=== PATIENT | male | born 1955 | race Caucasian/White ===

== ENCOUNTER 2021-06-14 06:04 | Outpatient (REF) | payer OTHER, SELFPAY ==
--- NOTE | ~2021-06-14 | XR_ITS ---
EXAMINATION: XR SHOULDER, LEFT CLINICAL INFORMATION: Pain. COMPARISON: None TECHNIQUE: AP external rotation, Grashey, scapular Y, and axillary views of the left shoulder. FINDINGS: There is mild reduction in the left AC joint and left glenohumeral joint space. No visible acute fracture or dislocation seen. The soft tissues are normal. XR/XR shoulder LT min 2V IMPRESSION: Mild degenerative changes left shoulder joint. There is no visible acute fracture or dislocation.
[2021-06-14 06:19] LABS: MANUAL DIFF FLAG NO
[2021-06-14 06:53] LABS: Basophils Absolute Auto 0.1 X10*3/uL (0.0-0.2); Eosinophils Absolute Auto 0.2 X10*3/uL (0.0-0.4); Eosinophils Percent Auto 3.8 % (0-4); Hematocrit 50.4 % (42.0-52.0); Hemoglobin 16.8 g/dl (14.0-18.0); Imm Gran Abs Auto 0.04 X10*3/uL (0.00-0.03); Imm Gran Pct Auto 0.6 % (0.0-0.4); Lymphocytes Absolute Auto 1.7 X10*3/uL (1.2-4.9); Lymphocytes Percent Auto 26.7 % (20-40); Mean Corpuscular HGB Conc 33.3 g/dl (31.0-36.0); Mean Corpuscular Hemoglobin 30.3 pg (27.0-33.0); Mean Corpuscular Volume 90.8 fL (80.0-98.0); Mean Platelet Volume 10.1 fL (9.4-12.4); Monocytes Absolute Auto 0.8 X10*3/uL (0.1-1.2); Monocytes Percent Auto 13.1 % (2-11); Neutrophils Absolute Auto 3.4 x10*3/uL (2.0-8.3); Neutrophils Percent Auto 54.8 % (45-73); Platelet Count 202 X10*3/uL (160-400); Red Blood Count 5.55 X10*6/uL (4.60-5.80); White Blood Count 6.3 X10*3/uL (4.8-10.8)
[2021-06-14 07:11] LABS: Alanine Aminotransferase 20 U/L (0-40); Albumin Level 3.8 g/dL (3.5-5.0); Alkaline Phosphatase 44 U/L (39-117); Anion Gap 13 (12-20); Aspartate Amino Transferase 15 U/L (5-37); Bilirubin Total 1.8 mg/dL (0.0-1.0); Blood Urea Nitrogen 14 mg/dL (9-16); Calcium 9.4 mg/dL (8.4-10.2); Carbon Dioxide 29 mmol/L (22-29); Chloride 103 mmol/L (96-108); Cholesterol 229 mg/dL; Estimated Glomerular Filt Rate > 60; Glucose Random 111 mg/dL (60-115); HDL Cholesterol 64 mg/dL; LDL Cholesterol Calculated 143 mg/dl; Potassium 4.6 mmol/L (3.3-5.1); Sodium 140 mmol/L (135-145); Total Protein 6.5 g/dL (6.5-8.0); Triglycerides 113 mg/dL
[2021-06-14 07:24] LABS: Estimated Average Glucose 103 mg/dL; Free T4 (Free Thyroxine) 0.83 ng/dL (0.71-1.85); Hemoglobin A1c % 5.2 %; Prostate Specific Antigen Scr 1.77 ng/mL (<0.05-4.0); Thyroid Stimulating Hormone 3.32 uIU/mL (0.32-4.0)
[2021-06-14 08:52] LABS: Folate 8.9 ng/mL (> or = 4.0); Vitamin B12 372 pg/mL (200-900)
== END 2021-06-14 06:05 | disposition home or self-care (01) ==
LOC: HO.LAB 06:04
PROVIDERS: PCP Internal Medicine; Visit Provider Internal Medicine
DX: Z12.5 Encounter for screening for malignant neoplasm of prostate (principal); I10 Essential (primary) hypertension; R73.02 Impaired glucose tolerance (oral); N40.0 Benign prostatic hyperplasia without lower urinary tract symptoms; E78.00 Pure hypercholesterolemia, unspecified; M25.512 Pain in left shoulder
CPT/HCPCS: 36415; 73030; 80053; 80061; 82607; 82746; 83036; 84153; 84439; 84443; 85025

== ENCOUNTER 2021-08-13 07:57 | Outpatient (REF) | payer OTHER, SELFPAY ==
--- NOTE | ~2021-08-13 | XR_ITS ---
EXAMINATION: 1. RADIOGRAPHS BILATERAL STANDING AP KNEES 2. RADIOGRAPHS RIGHT KNEE 3. RADIOGRAPHS LEFT KNEE CLINICAL INFORMATION: Bilateral knee pain COMPARISON: Bilateral knee x-rays January 12, 2016 and September 09, 2014 TECHNIQUE: Frontal standing AP views of both knees were obtained. 2 additional views of each knee were also obtained. FINDINGS: Patient is status post bilateral cruciate ligament repair. Hardware in the bilateral knees is grossly unremarkable. There is mild narrowing of the right medial joint space height with moderate narrowing of the left medial joint space height. Small tricompartmental marginal osteophytes are present within both knees. I do not appreciate a joint effusion within either knee. XR/XR knee LT 2V IMPRESSION: -Unremarkable postsurgical changes of both knees. -Mild to moderate degenerative changes of both knees, predominantly involving the medial compartment of both knees, slightly more prominent within the left knee. Degenerative changes are only minimally progressed from January 20, 2016 imaging.
--- NOTE | ~2021-08-13 | XR_ITS ---
EXAMINATION: 1. RADIOGRAPHS BILATERAL STANDING AP KNEES 2. RADIOGRAPHS RIGHT KNEE 3. RADIOGRAPHS LEFT KNEE CLINICAL INFORMATION: Bilateral knee pain COMPARISON: Bilateral knee x-rays January 12, 2016 and September 09, 2014 TECHNIQUE: Frontal standing AP views of both knees were obtained. 2 additional views of each knee were also obtained. FINDINGS: Patient is status post bilateral cruciate ligament repair. Hardware in the bilateral knees is grossly unremarkable. There is mild narrowing of the right medial joint space height with moderate narrowing of the left medial joint space height. Small tricompartmental marginal osteophytes are present within both knees. I do not appreciate a joint effusion within either knee. XR/XR knee standing BI IMPRESSION: -Unremarkable postsurgical changes of both knees. -Mild to moderate degenerative changes of both knees, predominantly involving the medial compartment of both knees, slightly more prominent within the left knee. Degenerative changes are only minimally progressed from January 20, 2016 imaging.
--- NOTE | ~2021-08-13 | XR_ITS ---
EXAMINATION: 1. RADIOGRAPHS BILATERAL STANDING AP KNEES 2. RADIOGRAPHS RIGHT KNEE 3. RADIOGRAPHS LEFT KNEE CLINICAL INFORMATION: Bilateral knee pain COMPARISON: Bilateral knee x-rays January 12, 2016 and September 09, 2014 TECHNIQUE: Frontal standing AP views of both knees were obtained. 2 additional views of each knee were also obtained. FINDINGS: Patient is status post bilateral cruciate ligament repair. Hardware in the bilateral knees is grossly unremarkable. There is mild narrowing of the right medial joint space height with moderate narrowing of the left medial joint space height. Small tricompartmental marginal osteophytes are present within both knees. I do not appreciate a joint effusion within either knee. XR/XR knee RT 2V IMPRESSION: -Unremarkable postsurgical changes of both knees. -Mild to moderate degenerative changes of both knees, predominantly involving the medial compartment of both knees, slightly more prominent within the left knee. Degenerative changes are only minimally progressed from January 20, 2016 imaging.
== END 2021-08-13 07:58 | disposition home or self-care (01) ==
LOC: HO.HOSX 07:57
PROVIDERS: Visit Provider Orthopaedic Surgery
DX: M17.0 Bilateral primary osteoarthritis of knee (principal)
CPT/HCPCS: 20610; 73560; 73565; J1100

== ENCOUNTER 2021-11-05 11:50 | Outpatient (REF) | payer OTHER, SELFPAY ==
--- NOTE | ~2021-11-05 | XR_ITS ---
EXAMINATION: XR HAND, LEFT CLINICAL INFORMATION: Pain. COMPARISON: Radiographs dated 08/07/2007. TECHNIQUE: PA, lateral, and oblique views of the left hand. FINDINGS: Bony alignment and mineralization are normal. There is a neutral ulnar variance. The proximal and distal carpal rows are intact. There are small subchondral cysts noted of the third and fourth distal interphalangeal joints and of the second and third proximal interphalangeal joints. There is mild peripheral osteophyte formation of the interphalangeal joint of the thumb, the second through fourth proximal interphalangeal joints and of the third distal interphalangeal joint. No fracture or dislocation is seen. There is no soft tissue gas or foreign body. XR/XR hand LT min 3V IMPRESSION: There are multi-focal osteoarthritic changes of the left hand and wrist, as detailed. No fracture or dislocation is seen.
== END 2021-11-05 11:51 | disposition home or self-care (01) ==
LOC: HO.HOSX 11:50
PROVIDERS: Visit Provider Orthopaedic Surgery
DX: M79.645 Pain in left finger(s) (principal); M25.561 Pain in right knee; M25.562 Pain in left knee; M17.0 Bilateral primary osteoarthritis of knee
CPT/HCPCS: 20600; 73130; J1100

== ENCOUNTER → 2022-03-31 14:11 | Outpatient (BNVA) | payer OTHER, SELFPAY | PROVIDERS: Visit Provider Orthopaedic Surgery | DX: M17.0 Bilateral primary osteoarthritis of knee (principal) | CPT/HCPCS: 20610; J1100 ==

== ENCOUNTER 2022-06-02 07:44 | Outpatient (REF) | payer OTHER, SELFPAY ==
[2022-06-02 07:52] LABS: MANUAL DIFF FLAG NO
[2022-06-02 08:05] LABS: Basophils Absolute Auto 0.1 X10*3/uL (0.0-0.2); Basophils Percent Auto 0.9 % (0-2); Eosinophils Absolute Auto 0.5 X10*3/uL (0.0-0.4); Eosinophils Percent Auto 8.2 % (0-4); Hematocrit 49.5 % (42.0-52.0); Hemoglobin 17.2 g/dl (14.0-18.0); Imm Gran Abs Auto 0.02 X10*3/uL (0.00-0.03); Imm Gran Pct Auto 0.3 % (0.0-0.4); Lymphocytes Absolute Auto 1.6 X10*3/uL (1.2-4.9); Lymphocytes Percent Auto 25.2 % (20-40); Mean Corpuscular HGB Conc 34.7 g/dl (31.0-36.0); Mean Corpuscular Hemoglobin 30.6 pg (27.0-33.0); Mean Corpuscular Volume 87.9 fL (80.0-98.0); Mean Platelet Volume 9.8 fL (9.4-12.4); Monocytes Absolute Auto 0.8 X10*3/uL (0.1-1.2); Monocytes Percent Auto 12.9 % (2-11); Neutrophils Absolute Auto 3.3 x10*3/uL (2.0-8.3); Neutrophils Percent Auto 52.5 % (45-73); Platelet Count 218 X10*3/uL (160-400); Red Blood Count 5.63 X10*6/uL (4.60-5.80); Red Cell Distribution Width 11.9 % (11.0-16.0); White Blood Count 6.4 X10*3/uL (4.8-10.8)
[2022-06-02 09:22] LABS: Estimated Average Glucose 103 mg/dL; Hemoglobin A1c % 5.2 %
[2022-06-02 09:47] LABS: Alanine Aminotransferase 20 U/L (0-40); Albumin Level 3.9 g/dL (3.5-5.0); Alkaline Phosphatase 42 U/L (39-117); Anion Gap 12 (12-20); Aspartate Amino Transferase 16 U/L (5-37); Bilirubin Total 1.8 mg/dL (0.0-1.0); Blood Urea Nitrogen 19 mg/dL (9-16); Calcium 9.1 mg/dL (8.4-10.2); Carbon Dioxide 28 mmol/L (22-29); Chloride 105 mmol/L (96-108); Cholesterol 248 mg/dL; Estimated Glomerular Filt Rate > 60; Glucose Random 107 mg/dL (60-115); HDL Cholesterol 67 mg/dL; LDL Cholesterol Calculated 158 mg/dl; Potassium 4.4 mmol/L (3.3-5.1); Sodium 141 mmol/L (135-145); Total Protein 6.3 g/dL (6.5-8.0); Triglycerides 116 mg/dL
[2022-06-02 10:01] LABS: Free T4 (Free Thyroxine) 0.88 ng/dL (0.71-1.85); Prostate Specific Antigen Scr 1.39 ng/mL (<0.05-4.0); Thyroid Stimulating Hormone 2.89 uIU/mL (0.32-4.0); Vitamin B12 337 pg/mL (200-900)
== END 2022-06-02 07:45 | disposition home or self-care (01) ==
LOC: HO.LAB 07:44
PROVIDERS: PCP Internal Medicine; Visit Provider Internal Medicine
DX: E78.00 Pure hypercholesterolemia, unspecified (principal); N40.0 Benign prostatic hyperplasia without lower urinary tract symptoms; R73.02 Impaired glucose tolerance (oral); Z12.5 Encounter for screening for malignant neoplasm of prostate
CPT/HCPCS: 36415; 80053; 80061; 82607; 82746; 83036; 84153; 84439; 84443; 85025

== ENCOUNTER 2022-07-25 12:44 | Outpatient (REF) | payer OTHER, SELFPAY ==
[2022-07-25 14:50] LABS: Anion Gap 12 (12-20); Blood Urea Nitrogen 17 mg/dL (9-16); Calcium 9.2 mg/dL (8.4-10.2); Carbon Dioxide 28 mmol/L (22-29); Chloride 104 mmol/L (96-108); Estimated Glomerular Filt Rate > 60; Glucose Random 104 mg/dL (60-115); Potassium 4.3 mmol/L (3.3-5.1); Sodium 140 mmol/L (135-145)
== END 2022-07-25 12:45 | disposition home or self-care (01) ==
LOC: HO.LAB 12:44
PROVIDERS: PCP Internal Medicine; Referring Provider Nurse Practitioner Family; Visit Provider Surgery
DX: R10.31 Right lower quadrant pain (principal); K40.91 Unilateral inguinal hernia, without obstruction or gangrene, recurrent; I10 Essential (primary) hypertension; E55.9 Vitamin D deficiency, unspecified; N40.0 Benign prostatic hyperplasia without lower urinary tract symptoms; E78.00 Pure hypercholesterolemia, unspecified; S00.81XA Abrasion of other part of head, initial encounter
CPT/HCPCS: 36415; 80048

== ENCOUNTER 2022-08-16 08:16 | Outpatient (REF) | payer OTHER, SELFPAY ==
--- NOTE | ~2022-08-16 | CT_ITS ---
EXAMINATION: CT PELVIS WITH CONTRAST CLINICAL INFORMATION: History of bilateral inguinal hernia repair right groin pain and recurrence on the left. COMPARISON: Previous CT of the abdomen and pelvis from 2019 TECHNIQUE: Helical scanning was performed with submillimeter collimation through the pelvis with the use of oral contrast and during bolus intravenous injection of 84 mL of Omnipaque 350 intravenous contrast. Sagittal and coronal multiplanar 2-D reconstructions were obtained. Exam was done with the patient performing Valsalva maneuver This CT examination was performed using dose optimization techniques as appropriate, variously including the following: *Automated exposure control *Adjustment of mA and/or kV according to patient size (this includes techniques or standardized protocols for targeted exams where dose is matched to indication/reason for exam; i.e. extremities or head) *Use of iterative reconstruction technique DLP: 484 mGy-cm FINDINGS: There are postsurgical changes following bilateral inguinal hernia repair. There is a recurrent left inguinal hernia containing fat. This measures 2.5 x 8.3 x 6 cm in AP transverse and longitudinal dimension. There are postsurgical changes in the right inguinal region. There is a small amount of fluid in the right inguinal region superficial and just lateral to the mesh measuring 1 cm. There is evidence of previous umbilical hernia repair with mesh. There is diverticulosis of the colon. Visualized bowel is otherwise unremarkable. The appendix is normal. The prostate gland is slightly enlarged and protrudes into the base of the bladder. No ascites or adenopathy. Normal vascular structures. Degenerative changes of the spine. CT/CT pelvis w IV con IMPRESSION: Recurrent left inguinal hernia containing fat. Postsurgical changes in the right inguinal region. There is a small amount of fluid adjacent to the superficial lateral mesh on the right. Diverticulosis. Enlarged prostate gland that protrudes into the base of the bladder.
[2022-08-16] MEDS: iohexoL 350 MG/ML 100 ML INFUS..BTL IV (09:38)
== END 2022-08-16 08:17 | disposition home or self-care (01) ==
LOC: HO.CT 08:16
PROVIDERS: PCP Internal Medicine; Visit Provider Surgery
DX: R10.31 Right lower quadrant pain (principal); K40.91 Unilateral inguinal hernia, without obstruction or gangrene, recurrent
CPT/HCPCS: 72193; Q9967

== ENCOUNTER → 2022-08-23 13:55 | Outpatient (BNVA) | payer OTHER, SELFPAY | PROVIDERS: PCP Internal Medicine; Visit Provider Surgery | DX: Z13.89 Encounter for screening for other disorder (principal) ==

== ENCOUNTER 2022-09-15 05:57 | Day surgery (SDC) | payer OTHER, SELFPAY ==
--- NOTE | 2022-09-14 09:09 | HO.ANESPROP2 ---
HPI - Anesthesia Eval Consult details Narrative: 67yo M for Left Laparoscopic Inguinal Hernia and Poss Right inguinal hernia both w/mesh PMFSH Active Problems Active Problems: All Active Problems (Updated 08/23/22 @ 15:39 by Jude Barraza MD) Inguinodynia (Acute) Recurrent left inguinal hernia (Acute) Facial abrasion (Acute) Right groin pain (Acute) Recurrent inguinal hernia (Acute) Right inguinal hernia (Acute) Left inguinal hernia (Acute) CMC arthritis (Acute) Bilateral primary osteoarthritis of knee (Acute) Elbow pain, left (Acute) Shoulder pain, left (Acute) Annual physical exam (Acute) Impaired glucose tolerance (Acute) Hypertension (Acute) Vitamin D deficiency (Acute) BPH (benign prostatic hyperplasia) (Acute) Hypercholesterolemia (Acute) Past Medical History Medical History BPH (benign prostatic hyperplasia) 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 History of fall Hypercholesterolemia Hypertension Impaired glucose tolerance Plantar fasciitis Vitamin D deficiency Surgical History Surgical History H/O umbilical hernia repair History of arthroscopic knee surgery History of inguinal hernia repair, bilateral History of strabismus surgery Social History Social History Housing: House Alcohol intake: current Patient Tobacco Use Status: Former Tobacco user Years Smoked: [id number] 4-5 years e-Cigarette/Vaping Use: Never Used Second Hand Smoke Exposure: No Current occupational status: retired Cognitive needs: No Hearing needs: No Vision needs: Yes Meds Allergies Allergy/AdvReac Type Severity Reaction Status Date / Time oxycodone [From PERCOCET] Allergy Unknown ITCHY Verified 09/15/22 06:26 THROAT, FEELS BAD Home Medications Medication Instructions Recorded Confirmed Last Taken Type instaflex PO 08/13/21 08/23/22 Unknown History Exam Exam Date and Time: September 14, 2022 09 Pertinent Lab Results Pertinent Lab Results: Laboratory Tests 06/02/22 07/25/22 07:52 13:38 WBC 6.4 Hgb 17.2 Hct 49.5 Plt Count 218 Sodium 140 Potassium 4.3 Chloride 104 Carbon Dioxide 28 BUN 17 H Creatinine 0.99 Assessment and Plan Assessment Anesthesia Assessment: Chart Reviewed
[2022-09-15] VITALS (7 sets, daily range): BP systolic 130–149; BP diastolic 73–92; PULSE 69–80; RESP 16–18; TEMP 36.2–36.4; O2SAT 96–98; BMI 25.4
[2022-09-15] MEDS: Lactated Ringers 1,000 ML 100 ML IVCONT (06:18)
--- NOTE | 2022-09-15 06:39 | MHC.SHP ---
Pre-Procedural Eval Section A Date of Service: 09/15/22 The patient is an INPATIENT: No The History & Physical has been completed within 30 days and I have reviewed it.: Yes Section B Chief Complaint: Unilateral inguinal hernia, Lower abdominal pain Allergies: Allergies Allergy/AdvReac Type Severity Reaction Status Date / Time oxycodone [From PERCOCET] Allergy Unknown ITCHY Verified 09/15/22 06:26 THROAT, FEELS BAD Plan I have reviewed the history and physical and performed a pertinent physical examination on my patient. No changes have occurred unless specified. Time Spent With Patient Time: Total time managing care of this patient today ____ minutes.
--- NOTE | 2022-09-15 06:44 | W.PM.OPN ---
Operative Note Operative Note Date of Service: 09/15/22 Narrative: The patient was identified in the preoperative holding area and the operative site and planned to repair, laparoscopically, his recurrent left inguinal hernia was reviewed. The possible need to repair an occult right inguinal hernia was present and discussed. Patient was brought into the operating suite and intubated without incident. During inventory of needed equipment, there was no left-sided ProGrip mesh available, so the patient was extubated and his Rebeca, notified by telephone [phone]. Patient will need to be rescheduled after the mesh is obtained..
--- NOTE | 2022-09-15 07:42 | PC.NURSE ---
verified by author that doctor marked the patient according to surgical consent and schedule.
== END 2022-09-15 09:49 | disposition home or self-care (01) ==
LOC: HO.SSS 05:57
PROVIDERS: PCP Internal Medicine; Visit Provider Surgery
DX: K40.91 Unilateral inguinal hernia, without obstruction or gangrene, recurrent (principal); Z53.8 Procedure and treatment not carried out for other reasons; I10 Essential (primary) hypertension; E78.00 Pure hypercholesterolemia, unspecified; Z79.899 Other long term (current) drug therapy; Z88.8 Allergy status to other drugs, medicaments and biological substances; Z87.891 Personal history of nicotine dependence
CPT/HCPCS: 49651; J0690; J2250; J2795

== ENCOUNTER 2022-09-22 10:27 | Day surgery (SDC) | payer OTHER, SELFPAY ==
--- NOTE | 2022-09-21 13:01 | P.CONAN_ITS ---
Documented by User: Radha Russo NP 09/21/22 13:03 HPI - Anesthesia Eval Consult details Narrative: 67yo M for Left Laparoscopic Inguinal Hernia and Poss Right inguinal hernia both w/mesh Previously cx'd 09/15/22 after intubation d/t equipment issue. GA-ETT 7.5 PMFSH Active Problems Active Problems: All Active Problems (Updated 08/23/22 @ 15:39 by Jude Barraza MD) Inguinodynia (Acute) Recurrent left inguinal hernia (Acute) Facial abrasion (Acute) Right groin pain (Acute) Recurrent inguinal hernia (Acute) Right inguinal hernia (Acute) Left inguinal hernia (Acute) CMC arthritis (Acute) Bilateral primary osteoarthritis of knee (Acute) Elbow pain, left (Acute) Shoulder pain, left (Acute) Annual physical exam (Acute) Impaired glucose tolerance (Acute) Hypertension (Acute) Vitamin D deficiency (Acute) BPH (benign prostatic hyperplasia) (Acute) Hypercholesterolemia (Acute) Past Medical History Medical History BPH (benign prostatic hyperplasia) 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 History of fall Hypercholesterolemia Hypertension Impaired glucose tolerance Plantar fasciitis Vitamin D deficiency Surgical History Surgical History H/O umbilical hernia repair History of arthroscopic knee surgery History of inguinal hernia repair, bilateral History of strabismus surgery Social History Social History Housing: House Alcohol intake: current Patient Tobacco Use Status: Former Tobacco user Years Smoked: [id number] 4-5 years e-Cigarette/Vaping Use: Never Used Second Hand Smoke Exposure: No Are you DNR?: No Advance Directives: No Advance Directives Information Provided: Yes Nutrition Risks: No Nutritional Risk Current occupational status: retired Cognitive needs: No Hearing needs: No Vision needs: Yes Meds Allergies Allergy/AdvReac Type Severity Reaction Status Date / Time oxycodone [From PERCOCET] Allergy Unknown ITCHY Verified 09/15/22 06:26 THROAT, FEELS BAD Home Medications Medication Instructions Recorded Confirmed Last Taken Type instaflex PO 08/13/21 08/23/22 Unknown History Exam Exam Date and Time: September 21, 2022 1301 Pertinent Lab Results Pertinent Lab Results: Laboratory Tests 06/02/22 07/25/22 07:52 13:38 WBC 6.4 Hgb 17.2 Hct 49.5 Plt Count 218 Sodium 140 Potassium 4.3 Chloride 104 Carbon Dioxide 28 BUN 17 H Creatinine 0.99 Assessment and Plan Assessment Anesthesia Assessment: Chart Reviewed Documented by User: Daxa Delarosa MD 09/22/22 14:37 PMF Past Medical History Medical History BPH (benign prostatic hyperplasia) 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 History of fall Hypercholesterolemia Hypertension Impaired glucose tolerance Plantar fasciitis Vitamin D deficiency Family History Family history of problems with anesthesia: No Surgical History Surgical History H/O umbilical hernia repair History of arthroscopic knee surgery History of inguinal hernia repair, bilateral History of strabismus surgery History of Problems with Anesthesia: No Social History Social History Housing: House Alcohol intake: current Patient Tobacco Use Status: Former Tobacco user Years Smoked: [id number] 4-5 years e-Cigarette/Vaping Use: Never Used Second Hand Smoke Exposure: No Are you DNR?: No Advance Directives: No Advance Directives Information Provided: Yes Nutrition Risks: No Nutritional Risk Current occupational status: retired Cognitive needs: No Hearing needs: No Vision needs: Yes Meds Allergies Allergy/AdvReac Type Severity Reaction Status Date / Time oxycodone [From PERCOCET] Allergy Unknown ITCHY Verified 09/15/22 06:26 THROAT, FEELS BAD Home Medications Medication Instructions Recorded Confirmed Last Taken Type instaflex PO 08/13/21 08/23/22 Unknown History Exam Airway Mallampati Class: II TM Dist: >3cm Neck ROM: Full Loose/Missing/Broken Teeth: No Heart: rr Lungs: cta Assessment and Plan Assessment Anesthesia Assessment: Anesthesia Plan Discussed Final Anesthetic Review Family History of Problems with Anesthesia: No History of Problems with Anesthesia: No NPO: Yes ASA Class: II Final Preanesthetic Review: No Changes in Pt Med Stat, Meds/Allgs Chart Review ed, Consent Obtained/Reviewed and Anes Risks/Benef Reviewed Patient Risk: Intermediate Procedure Risk: Intermediate Anesthetic Plan Anesthetic Plan: GA and Agree w/ Assess. and Plan Disposition: Standard PACU
--- NOTE | 2022-09-21 14:22 | MHC.SHP ---
Pre-Procedural Eval Section A Date of Service: 09/21/22 The patient is an INPATIENT: No The History & Physical has been completed within 30 days and I have reviewed it.: Yes Section B Chief Complaint: Unilateral inguinal hernia,Lower abdominal pain Allergies: Allergies Allergy/AdvReac Type Severity Reaction Status Date / Time oxycodone [From PERCOCET] Allergy Unknown ITCHY Verified 09/15/22 06:26 THROAT, FEELS BAD Plan I have reviewed the history and physical and performed a pertinent physical examination on my patient. No changes have occurred unless specified. Time Spent With Patient Time: Total time managing care of this patient today ____ minutes.
[2022-09-22] VITALS (9 sets, daily range): BP systolic 133–151; BP diastolic 76–85; PULSE 75–91; RESP 16–18; TEMP 36.1–36.6; O2SAT 95–98; BMI 25.4
[2022-09-22] MEDS: Lactated Ringers 1,000 ML 100 ML IVCONT (12:03)
--- NOTE | 2022-09-22 13:08 | P.OP_ITS ---
Operative Note Operative Note Date of Service: 09/22/22 Narrative: Preop diagnosis: [Recurrent LEFT inguinal hernia, reducible; right groin pain] Postop diagnosis: [Recurrent indirect LEFT inguinal hernia; right groin pain with no obvious hernia. Right plugged/mesh and umbilical mesh visualized with no evidence of hernia recurrence] Procedure: [Laparoscopic repair of recurrent left inguinal hernia with 10 x 15 cm ProGrip mesh; diagnostic laparoscopy with limited lysis of adhesions] Surgeon: Jude Barraza MD Assist: [Margarette Hooker RN] Anesthesia: [GET, Marcaine, 0.5% with epi] Estimated blood loss: [3cc] Specimen: [none] Intraoperative findings: [The patient had a recurrent indirect left inguinal hernia containing viable fat from the omentum and fatty appendages from the sigmoid colon the reduced. An umbilical hernia mesh with adhesions to the omentum was noted and required 5 minutes of lysis of adhesions to clear the operative field. In the right groin, there was no obvious direct or indirect inguinal hernia and a polypropylene plug was visualized with no encroachment on bowel or other structures.] Indications: [Patient is a 67-year-old gentleman with a history of hypertension, hypercholesterolemia, BPH and in referral from his PCP for left groin pain and a recurrent LEFT inguinal hernia.? He is here today for follow-up regarding his CT scan.? During the visit, he reported several episodes of RIGHT GROIN PAIN in addition to left groin pain.? We reviewed the CT findings which demonstrate a RECURRENT LEFT INDIRECT INGUINAL HERNIA ON CT but no evidence of a right recurrence. The patient has had 2 RIGHT open inguinal hernia operations due to an initial hernia and a question of a recurrence and has ongoing right groin pain. Given the recurrent left inguinal hernia and possible occult hernia on the right side, I recommended a laparoscopic repair of the recurrent left inguinal hernia in addition to a laparoscopy to assess for a right inguinal hernia which has been missed on repeat CT. The inherent risks to laparoscopic inguinal hernia repair were discussed and options of open or robotic repair were discussed. These risks of hernia surgery include, but are not limited to: Bleeding, infection, hernia recurrence especially if weight gain or postoperative instructions are not followed, nerve entrapment, chronic pain, urinary retention, possible need to convert to open procedure, ongoing symptoms in his right or left groin due to the prior repairs mesh complications that could require reoperation. The patient seemed to understand all of these options, had his questions answered and wanted to proceed with a laparoscopic repair with mesh of a recurrent left inguinal hernia and possible right recurrent inguinal hernia repair with mesh if 1 is encountered.] Procedure: [ The patient was identified in the preoperative holding area by myself and the operative site marked by me confirming a recurrent left inguinal hernia and right groin pain after 2 prior open inguinal hernia repairs. 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 The operative field hair had been clipped in preop holding. The patient was again identified in the operating suite and placed supine on the table. See anesthesia notes for full details regarding anesthesia care and management. The patient was then widely prepped and draped in the usual manner using chlorhexidine. An appropriate time-out was performed. The patient's abdomen was accessed through a supraumbilical transverse incision using preemptive local. Veress needle was placed without incident, an appropriate drop test performed and used to obtain a pneumoperitoneum of 15 mmHg using carbon dioxide. Opening pressure was 6 mmHg. The abdomen was then accessed with a 5 mm/30 degree laparoscopic for a 5 mm optical trocar without incident. I then inspected for evidence of injury from either the Veress needle or trocar and found none. The patient was positioned in gentle Trendelenburg position and additional 5 mm trocars placed using preemptive local under direct laparoscopic vision in the patient's right and left midclavicular lines. The 5 mm supraumbilical trocar was upsized to a 12mm. A diagnostic laparoscopy was performed to evaluate the patient's complaint of chronic right groin pain. No evidence of recurrent right inguinal hernia was noted in careful palpation and grasper mediated examine the right groin but the previously placed polypropylene plug was visualized and photographed. Next, laparoscopy was directed to the patient's left inguinal area and confirmed a recurrent left indirect inguinal hernia and ipsilateral peritoneal & transversalis fascia incision was made using a grasper and Endo scissors. Hemostasis was obtained with electrocautery. Dissection was then carried medially to Julian's ligament. Next, laparoscopic graspers and scissors were used to developed Retzius space, Bogros space and dissection carried laterally taking care to avoid nerve injury. The left indir ect inguinal hernia sac was carefully dissected using electrocautery for hemostasis. Once the sac was reduced, dissection avoiding the triangle of pain and triangle of Doom was carried inferiorly and posteriorly to allow placement of a 10 x 15 cm ProGrip mesh. It was tacked using absorbable tacks to Julian's ligament. The abdomen was then deflated to 9 mmHg in the field inspected for hemostasis. Local was infiltrated into the operative field and the peritoneal flap closed with absorbable tacks. The abdomen was deflated, the bed return to neutral and trocars removed. The supraumbilical fascia was closed 0 Polysorb suture and skin was closed with 4-0 Monocryl subcuticular sutures. The abdomen was then washed and dried, and Mastisol and Steri-Strips applied followed by Band-Aids. Patient tolerated the procedure well was sent to the recovery area in stable condition. All sponge and instrument counts were correct x2. At the patient's request, I contact his Rebeca by telephone at [phone] and apprised her by telephone of the procedure, postoperative pain management; a discussion regarding a referral to Pain Management given his right inguinodynia and probable need for a nerve block given his chronic right groin pain occurred and she stated he would likely be interested. Instructions regarding activity and pain management were reviewed. Questions were answered.]
[2022-09-22] MEDS: fentaNYL citrate/PF 100 MCG/2 ML VIAL 25 MCG IVPUSH (16:34)
[2022-09-22] MEDS: HYDROcodone Bit/Acetam 5/325 TABLET 1 TAB PO (16:45)
--- NOTE | 2022-09-22 16:57 | PC.NURSE ---
patient reports pain more tolerable at this time. ready to go home. taking po fluids. no nausea.
== END 2022-09-22 17:29 | disposition home or self-care (01) ==
LOC: HO.SSS 10:27
PROVIDERS: PCP Internal Medicine; Visit Provider Surgery
PROC: (CPT 49650; principal; 2022-09-22 12:00)
DX: K40.91 Unilateral inguinal hernia, without obstruction or gangrene, recurrent (principal); K66.0 Peritoneal adhesions (postprocedural) (postinfection); I10 Essential (primary) hypertension; E78.00 Pure hypercholesterolemia, unspecified; R73.02 Impaired glucose tolerance (oral); E55.9 Vitamin D deficiency, unspecified; N40.0 Benign prostatic hyperplasia without lower urinary tract symptoms; Z79.1 Long term (current) use of non-steroidal anti-inflammatories (NSAID); Z79.899 Other long term (current) drug therapy; Z88.8 Allergy status to other drugs, medicaments and biological substances; Z91.81 History of falling; Z98.890 Other specified postprocedural states
CPT/HCPCS: 49651; C1781; J0690; J2250; J3010

== ENCOUNTER → 2022-09-30 09:52 | Outpatient (BNVA) | payer OTHER, SELFPAY | PROVIDERS: PCP Internal Medicine; Visit Provider Surgery ==

== ENCOUNTER → 2022-10-14 08:35 | Outpatient (BNVA) | payer OTHER, SELFPAY | PROVIDERS: PCP Internal Medicine; Visit Provider Surgery ==

== ENCOUNTER → 2022-10-28 08:23 | Outpatient (BNVA) | payer OTHER, SELFPAY | PROVIDERS: PCP Internal Medicine; Visit Provider Surgery ==

== ENCOUNTER 2022-11-04 08:19 | Outpatient (AMB) | payer OTHER, SELFPAY ==
--- NOTE | 2022-11-04 08:20 | A.OFFVIS_ITS ---
Intake Vital Signs 11/04/22 08:21 Height 6 ft 2 in Weight 191 lb 12.835 oz BMI 24.6 Intake Visit Reasons: 1 wk follow up [facility] Intake Note: This patient presents for a one week follow-up assessment status post laparoscopic left inguinal hernia repair. Patient denies complaints at this time. 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 He reports improvement in pain but as he has liberalized his activity, he is reporting more pain in his right groin with activity. He notes that he went for a motorcycle ride and inadvertently lifted a case of water while shopping which caused some pain afterwards. 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 The patient otherwise denies interval change to his history but does note that is ease increased his activity, his right inguinodynia is more prominent. [facility] Medical History BPH (benign prostatic hyperplasia) 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 History of fall Hypercholesterolemia Hypertension Impaired glucose tolerance Plantar fasciitis Vitamin D deficiency Surgical History H/O umbilical hernia repair History of arthroscopic knee surgery History of inguinal hernia repair, bilateral History of left inguinal hernia repair (09/22/22) History of strabismus surgery Social History Housing: House Alcohol intake: current Patient Tobacco Use Status: Former Tobacco user Years Smoked: [id number] 4-5 years e-Cigarette/Vaping Use: Never Used Second Hand Smoke Exposure: No Current occupational status: retired Cognitive needs: No Hearing needs: No Vision needs: Yes Physical Exam The patient is examined standing. On exam Patient is examined standing On Valsalva, I do not appreciate a right or left inguinal hernia. There is point tenderness in the right groin at his prior open hernia repair sites x2. The pain is palpable in the mid incision. Patient reports no tenderness on exam of the left side and endorses minimal discomfort Assessment & Plan Assessment & Plan (1) Recurrent left inguinal hernia: Comment: 09/22/2022 Laparoscopic repair of recurrent left inguinal hernia with 10 x 15 cm ProGrip mesh; diagnostic laparoscopy with limited lysis of adhesions Code(s): K40.91 - Unilateral inguinal hernia, without obstruction or gangrene, recurrent (2) Inguinodynia: Code(s): R10.30 - Lower abdominal pain, unspecified (3) Right groin pain: Code(s): R10.31 - Right lower quadrant pain Plan The patient is 6 weeks out from surgery and can return to work without restriction. The patient states his employer and he have discussed 6 hour days, so work note was provided. Patient also notes that as he is increased his activity, the right inguinodynia from his 2 prior open right inguinal hernia repairs his bothered him enough that he would like a discussion regarding pain management options. A referral to Dr. Carbajal in pain management has been made. The patient has done well and is discharged from my care at this time. He will follow up with his PCP and pain management and all see him again if a new surgical issue arises. Orders: Referrals 2 Pain Management Referral R10.30 - Lower abdominal pain, unspecified Coding Level of Care Code Global (50281) Diagnoses Recurrent left inguinal hernia K40.91 Inguinodynia R10.30 Right groin pain R10.31
[2022-11-04 08:21] VITALS: BMI 24.6
== END 2022-11-04 08:34 | disposition home or self-care (01) ==
PROVIDERS: PCP Internal Medicine; Visit Provider Surgery
DX: K40.91 Unilateral inguinal hernia, without obstruction or gangrene, recurrent (principal); R10.30 Lower abdominal pain, unspecified; R10.31 Right lower quadrant pain
CPT/HCPCS: 99024

== ENCOUNTER → 2022-11-04 08:19 | Outpatient (BNVA) | payer OTHER, SELFPAY | PROVIDERS: PCP Internal Medicine; Visit Provider Surgery ==

== ENCOUNTER 2022-11-22 14:14 | Outpatient (AMB) | payer OTHER, SELFPAY ==
--- NOTE | 2022-11-22 14:15 | MHC.OFFVIS ---
Intake Vital Signs 11/22/22 14:19 Height 6 ft 2 in Weight 191 lb 2 oz BMI 24.5 BP 167/87 H Blood Pressure Location Rt brachial Position Sitting Pulse 97 Pulse Source Pulse Oximeter Pulse Oximetry (%) 99 Oxygen Delivery Method Room Air Intake Visit Reasons: Lower abdominal pain, unspecified Allergies oxycodone [From PERCOCET] Allergy (Unknown, Verified 11/04/22 08:25) ITCHY THROAT, FEELS BAD HPI Lower abdominal pain, unspecified HPI Details Patient is a pleasant 67 years old male with history of recent laparoscopic left inguinal hernia repair with ProGrip mesh for a recurrent left inguinal hernia 09/22/22 and previous right inguinal hernia repair with mesh in 2019 and 2005. Denies any recent trauma, injury or falls. Patient reports his right groin pain has been minimal for the past 3 days as he has not been working. Pain is increased with activity, especially with heavy lifting, pulling or coughing. Pain interferes with his daily activities and functions but he is able to sleep well. 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 Patient attributes his chronic right inguinodynia to 2 prior open surgeries who utilized mesh. Denies any fever, abdominal or back pain, weight loss, weakness, numbness, tingling, bladder or bowel incontinence or saddle anesthesia. Location Lower right groin Duration Chronic pain for over one year due to mesh r/t previous inguinal hernia Characteristics of symptom or complaint Burning, aching, tugging, pulling, wrenching, dull, sore, aching, heavy Aggravating or associated factors Walking, sitting, movements, worse pain after work Relieving factors Rest, Tylenol, Naproxen Treatment None PFSH Medical History (Updated 11/22/22 @ 14:46 by KIMBERLY Alejandro) BPH (benign prostatic hyperplasia) 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 History of fall Hypercholesterolemia Hypertension Impaired glucose tolerance Plantar fasciitis Vitamin D deficiency Surgical History (Updated 11/27/22 @ 00:07 by KIMBERLY Alejandro) H/O umbilical hernia repair History of arthroscopic knee surgery History of inguinal hernia repair, bilateral History of left inguinal hernia repair (09/22/22) History of strabismus surgery Social History Housing: House Alcohol intake: current Patient Tobacco Use Status: Former Tobacco user Years Smoked: [id number] 4-5 years e-Cigarette/Vaping Use: Never Used Second Hand Smoke Exposure: No Current occupational status: retired Cognitive needs: No Hearing needs: No Vision needs: Yes Review of Systems Const All systems reviewed & are unremarkable except as noted in HPI and below Physical Exam Vital Signs: Last Vital Signs Pulse 97 11/22/22 14:19 BP 167/87 H 11/22/22 14:19 Pulse Ox 99 11/22/22 14:19 Oxygen Delivery Method Room Air 11/22/22 14:19 BMI result Body Mass Index 24.5 General: Appears afebrile. Alert and oriented. Mood and affect appropriate. Follows and participates in conversation appropriately. Respiratory effort is unlabored. Able to transition from sit to stand unassisted. Ambulates with bilaterally normal heel strike and toe off. GI Inspection: Yes normal to inspection, No abdominal wall ecchymosis and Yes scar (well healed ) Palpation (GI): Soft to palpation, Tenderness to palpation present (GI) (right inguinal TTP in the middle of incisions of previous inguinal repairx2), no guarding, not rigid, No hepatosplenomegaly present and No Carnett's sign positive Percussion: Yes normal to percussion Auscultation: normal bowel sounds Assessment & Plan Assessment & Plan (1) Inguinodynia: Code(s): R10.30 - Lower abdominal pain, unspecified (2) Chronic pain syndrome: Code(s): G89.4 - Chronic pain syndrome (3) Right groin pain: Code(s): R10.31 - Right lower quadrant pain (4) History of inguinal hernia repair, bilateral: Comment: June 2019 Dr. 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 I have informed patient that our office does not offer opioid prescribing at this time. Patient reports his pain has been minimal for the past 3 days due to not working. He will notify our office if he is interested in nerve blocks. Expectations, risks and benefits were reviewed. Script provided for gabapentin at bedtime. Side effects and precautions were reviewed with patient. All questions and concerns have been answered and patient agreed with the plan. Follow up for medication review and sooner if needed. Medications: New gabapentin 300 mg PO BEDTIME 30 days 30 caps 0RF pain G89.4 - Chronic pain syndrome, R10.30 - Lower abdominal pain, unspecified Discontinued hydrocodone-acetaminophen 5-325 mg Partial Fill upon patient request. Discontinued Reason: Patient Completed Course 1 tab PO Q4-6H PRN 20 tabs 0RF pain Coding Level of Care Code New Pt Level 4 (45834) Diagnoses Inguinodynia R10.30 Chronic pain syndrome G89.4 Right groin pain R10.31 History of inguinal hernia repair, bilateral Z98.890; Z87.19
[2022-11-22 14:19] VITALS: BP 167/87; PULSE 97; O2SAT 99; BMI 24.5
== END 2022-11-22 14:47 | disposition home or self-care (01) ==
PROVIDERS: PCP Internal Medicine; Visit Provider Nurse Practitioner Family
DX: G89.4 Chronic pain syndrome (principal); R10.31 Right lower quadrant pain; Z98.890 Other specified postprocedural states; Z87.19 Personal history of other diseases of the digestive system
CPT/HCPCS: 99204

== ENCOUNTER → 2022-11-22 14:14 | Outpatient (BNVA) | payer OTHER, SELFPAY | PROVIDERS: PCP Internal Medicine; Visit Provider Nurse Practitioner Family ==

== ENCOUNTER 2022-12-30 10:06 | Outpatient (AMB) | payer OTHER, SELFPAY ==
--- NOTE | 2022-12-30 10:08 | MHC.OFFVIS ---
Intake Vital Signs 12/30/22 10:11 Height 6 ft 2 in Weight 191 lb BMI 24.5 Intake Visit Reasons: O/V bilat knee last injection 03/31/22 Intake Note: Ko is a 67 year old male who presents today for a follow up of his bilateral knee OA. Last injected on 03/31/2022. Patient reports that these injections were helpful and he would like to repeat injections today. Allergies oxycodone [From PERCOCET] Allergy (Unknown, Verified 11/04/22 08:25) ITCHY THROAT, FEELS BAD HPI O/V bilat knee last injection 03/31/22 HPI Details Ko is a 67 year old man with bilateral knee OA. He has a hx of relief from steroid injections, his most recent was on 03/31/22, and he would like to repeat injections today. He says he has some pain with activity, but he is managing this with Naproxen and activity modification. 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 and he tries to use his electric bicycle several times a week [facility] Medical History History of fall Impaired glucose tolerance Hearing loss in left ear Facial basal cell cancer Plantar fasciitis Hypertension Vitamin D deficiency BPH (benign prostatic hyperplasia) Hypercholesterolemia Surgical History History of left inguinal hernia repair (09/22/22) History of inguinal hernia repair, bilateral History of strabismus surgery History of arthroscopic knee surgery H/O umbilical hernia repair Social History Housing: House Alcohol intake: current Patient Tobacco Use Status: Former Tobacco user Years Smoked: [id number] 4-5 years e-Cigarette/Vaping Use: Never Used Second Hand Smoke Exposure: No Current occupational status: retired Cognitive needs: No Hearing needs: No Vision needs: Yes Review of Systems Const All systems reviewed & are unremarkable except as noted in HPI and below Physical Exam Vital Signs: BMI result Body Mass Index 24.5 Const General: no acute distress, alert and awake Orientation/consciousness: patient oriented x3 HEENT Head: Yes normocephalic and Yes atraumatic Eyes EOM: EOMs intact bilaterally Resp Effort & Inspection: normal respiratory effort and able to speak in complete sentences Cardio Jugular venous distension: no JVD Skin General skin exam: turgor normal Rashes: no rashes Neuro General: patient oriented x3 Extrem Other: Bilateral Knees: TTP medial compartment Psych Appearance: grossly normal Affect: normal affect Attitude: cooperative Office Procedures Joint Injection/Drain Joint Injection/Drain Details: Injected 1 mL of Decadron and 3 mL 1% lidocaine and 3 mL of 0.25% Marcaine. Site was prepped using aseptic technique. Patient tolerated the procedure well. Primary Site: right knee Secondary Site: left knee Approach Used: anterolateral Coding - Large joint - Glenohumeral/Tronchanteric Bursa/Intraarticular Procedure code (CPT) selection complete Results Reviewed Results Reviewed: 12/30/22 10:08 BUPivacaine MPF 0.25 % [Sensorcaine-MPF 0.25% 10 ML] 10 ml .ROUTE .STK-MED ONE Lidocaine HCl 1 % [Xylocaine 1 %] 2 ml .ROUTE .STK-MED ONE Lidocaine HCl 2 % MPF [Xylocaine 2 % MPF] 5 ml .ROUTE .STK-MED ONE dexAMETHasone sod phosphate [Decadron] 4 mg .ROUTE .STK-MED ONE Assessment & Plan Assessment & Plan (1) Bilateral primary osteoarthritis of knee: Code(s): M17.0 - Bilateral primary osteoarthritis of knee Plan: This is a 67 year old man with bilateral knee OA. He has pain with daily activity, which he managed with activity modification and NSAIDs. He has a hx of good relief from steroid injections & tries to remain active riding his electric bicycle several times a week. I injected his bilateral knees today, which he tolerated well. Plan Scribed for Dallas Zarate MD by Vern Vickers medical instructor, on 12/30/22 at 10:20 AM, EST. Coding Level of Care Code Est Pt Level 3 (35372) Diagnoses Bilateral primary osteoarthritis of knee M17.0 CPT Codes Coding - Large joint: 77876 - Large joint ([id number]) Coding - Joint 7: - Glenohumeral/Tronchanteric Bursa/Intraarticular ([id number])
[2022-12-30 10:11] VITALS: BMI 24.5
== END 2022-12-30 10:24 | disposition home or self-care (01) ==
PROVIDERS: PCP Internal Medicine; Visit Provider Orthopaedic Surgery
DX: M17.0 Bilateral primary osteoarthritis of knee (principal)
CPT/HCPCS: 20610; 99214

== ENCOUNTER → 2022-12-30 10:06 | Outpatient (BNVA) | payer OTHER, SELFPAY | PROVIDERS: PCP Internal Medicine; Visit Provider Orthopaedic Surgery | DX: M17.0 Bilateral primary osteoarthritis of knee (principal) | CPT/HCPCS: 20610; J1100 ==

== ENCOUNTER 2023-02-15 11:28 | Outpatient (AMB) | payer OTHER, SELFPAY ==
[2023-02-15 11:30] VITALS: BP 150/86; PULSE 80; O2SAT 99; BMI 24.6
--- NOTE | 2023-02-15 11:30 | MHC.PC.OV ---
Vital Signs 02/15/23 11:30 02/15/23 12:10 Height 6 ft 2 in Weight 192 lb BMI 24.6 BP 150/86 H 140/76 H Blood Pressure Location Lt brachial Lt brachial Position Sitting Sitting Pulse 80 Pulse Source Pulse Oximeter Pulse Oximetry (%) 99 Oxygen Delivery Method Room Air Intake Visit Reasons: Follow Up Urgent Care Fractured Ribs Intake Note: pt seen at [facility] urgent care for rib fracture 02/03/2023 Supervisor Malted Milk Required: No Allergies oxycodone [From PERCOCET] Allergy (Unknown, Verified 02/15/23 11:59) ITCHY THROAT, FEELS BAD Medication List - Last Reconciled 02/15/23 by KIMBERLY Moralez finasteride 5 mg PO DAILY gabapentin 300 mg PO BEDTIME hydrochlorothiazide 12.5 mg PO QAM [instaflex PO] naproxen 500 mg PO BID PRN tamsulosin (Flomax) 0.4 mg PO DAILY Tobacco use date assessed: 02/15/23 Fall risk assessment: No Falls in past year Last assessed Fall Risk: 02/15/23 HPI Follow Up Urgent Care Fractured Ribs HPI Details Patient is a 68-year-old male presents today to follow-up after [facility] urgent care visit 02/03/2023 due to right-sided rib pain on the back after a fall. Patient of Dr. Kothari. Patient sustained a fall 01/28/2023, he fell backwards. Patient reports he has right-sided 10th rib fracture on the back. Patient was able to bring discharge notes from urgent care. He reports mostly constant pain 3/10 scale with activity can be up to 6/10 scale. Pain is worse with activity, hurts when laying on that side. No numbness or tingling. Reports taking naproxen that takes edge off. Reports bruising is improving. 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 [facility] Medical History History of fall Impaired glucose tolerance Hearing loss in left ear Facial basal cell cancer Plantar fasciitis Hypertension Vitamin D deficiency BPH (benign prostatic hyperplasia) Hypercholesterolemia Surgical History History of left inguinal hernia repair (09/22/22) History of inguinal hernia repair, bilateral History of strabismus surgery History of arthroscopic knee surgery H/O umbilical hernia repair Social History Housing: House Alcohol intake: current Patient Tobacco Use Status: Former Tobacco user Years Smoked: [id number] 4-5 years e-Cigarette/Vaping Use: Never Used Second Hand Smoke Exposure: No Current occupational status: retired Cognitive needs: No Hearing needs: No Vision needs: Yes Questionnaire Thrive Questionnaire Date Thrive assessed: 05/11/22 AUDIT C Alcohol Use Questionnaire (AUDIT-C) 1. How often do you have a drink containing alcohol?: Monthly or less 2. How many drinks containing alcohol do you have on a typical day when you are drinking?: 1 or 2 3. How often do you have six or more drinks on one occasion?: Never Total Score: 1 Score Reviewed/Action Taken: No NURY-7 AMB Questionnaire NURY-7 Date NURY - 7 assessed: 05/11/22 Source: Developed by Drs. Neil Rendno, Chayo Santos, Greg Lopez and colleagues, with an educational benito from [employer]. Review of Systems Const Denies body aches, Denies chills, Denies fever(s) and Denies headache(s) ENT Denies dizziness, Denies otalgia, Denies headache(s), Denies nasal discharge, Denies sinus pain and Denies sore throat Card Denies chest pain, Denies edema, Denies lightheadedness and Denies dyspnea Resp Denies cough, Denies dyspnea and Denies wheezing GI Denies abdominal pain Denies dysuria Musc Reports as per HPI and Denies myalgias Skin/Breast Reports as per HPI and Denies rash Neuro Denies dizziness and Denies headache(s) Aller/Immun Denies wheezing Physical exam (Primary Care) Vital Signs: Last Vital Signs Pulse 80 02/15/23 11:30 BP 140/76 H 02/15/23 12:10 Pulse Ox 99 02/15/23 11:30 Oxygen Delivery Method Room Air 02/15/23 11:30 BMI result Body Mass Index 24.6 Tobacco/Smoking Status: Tobacco use Status Tobacco use date assessed 02/15/23 02/15/23 11:36 Patient Tobacco Use Status Former Tobacco user 02/15/23 11:36 Tobacco use type 05/11/21 14:07 e-Cigarette/Vaping Use Never Used 02/15/23 11:36 Thrive Assessment: Date of Thrive Assessment Date Thrive assessed 05/11/22 02/15/23 11:36 Const General: cooperative and no acute distress Orientation/consciousness: patient oriented x3 HENMT Head: Yes normocephalic and Yes atraumatic Mouth: oropharynx normal and moist mucous membranes Throat: Yes posterior oropharynx normal Eyes General: appearance normal, both eyes and all related structures Neck Neck: Yes normal visual inspection, Yes full ROM and Yes no lymphadenopathy Resp Effort & Inspection: normal respiratory effort and able to speak in complete sentences Auscultation: clear to auscultation bilaterally, no crackles, no rales, no rhonchi and no wheezes Cardio Rate: regular rate Rhythm: regular rhythm Heart sounds: S1 normal heart sound present and S2 normal heart sound present GI Auscultation: normal bowel sounds Back/Spine/Pelvis Back/spine/pelvis image: 1. Right lower lateral back tenderness to palpation, fading ecchymosis noted, no signs of infection noted, skin intact Neuro General: patient oriented x3 Gait exam (Neuro): Normal gait present Extrem General: Yes full ROM and No edema Assessment and Plan Assessment & Plan (1) Right rib fracture: Comment: 10th rib on the right 01/2023 Code(s): S22.31XA - Fracture of one rib, right side, initial encounter for closed fracture Plan: Patient is to continue naproxen b.i.d. p.r.n. as needed for pain Encouraged heat/cold packs p.r.n. Work note provided Signs and symptoms reviewed when to notify provider Patient agreed with the plan Keep appointment with PCP as scheduled or follow-up sooner as needed Coding Level of Care Code Est Pt Level 3 (94260) Diagnoses Right rib fracture S22.31XA
[2023-02-15 12:10] VITALS: BP 140/76
== END 2023-02-15 12:55 | disposition home or self-care (01) ==
PROVIDERS: PCP Internal Medicine; Visit Provider Nurse Practitioner Family
DX: S22.31XA Fracture of one rib, right side, initial encounter for closed fracture (principal)
CPT/HCPCS: 99213

== ENCOUNTER 2023-05-19 10:06 | Outpatient (AMB) | payer OTHER, SELFPAY ==
[2023-05-19 10:14] VITALS: BP 140/78; PULSE 82; O2SAT 97; BMI 25.2
--- NOTE | 2023-05-19 10:14 | A.OFFPC_ITS ---
Vital Signs 05/19/23 10:14 Height 6 ft 2 in Weight 196 lb BMI 25.2 BP 140/78 H Blood Pressure Location Lt brachial Position Sitting Pulse 82 Pulse Source Pulse Oximeter Pulse Oximetry (%) 97 Oxygen Delivery Method Room Air Intake Visit Reasons: Annual Exam Intake Note: Patient is here today for a physical. 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 Required: No Allergies oxycodone [From PERCOCET] Allergy (Unknown, Verified 05/19/23 10:23) ITCHY THROAT, FEELS BAD Medication List - Last Reconciled 05/19/23 by Abby Kothari MD finasteride 5 mg PO DAILY gabapentin 300 mg PO BEDTIME hydrochlorothiazide 12.5 mg PO QAM [instaflex PO] naproxen 500 mg PO BID PRN tamsulosin (Flomax) 0.4 mg PO DAILY Tobacco use date assessed: 05/19/23 Fall risk assessment: No Falls in past year Last assessed Fall Risk: 05/19/23 Dental Screening Dental Screen Date: 05/19/23 Did you have a dental visit in the last 12 months?: Yes Did you have a dental problem in the last 6 months where you did not have access to dental care?: No Was dental information given to patient?: Patient has dentist HPI Annual Exam HPI Details 68-year-old male with hypertension hyper cholesterolemia BPH IGT osteoarthritis of the knee and history of left inguinal hernia last seen in April 2022. Patient is up-to-date with colonoscopy December 2024 years review of the notes in January 2023 urgent care visit for right-sided rib pain on the back after fall 01/28/2023 falling backwards x-ray noted 10th rib fracture on the back. December 2022 follows up with orthopedics for bilateral knee pain osteoarthritis injected March 2022 and now December 2022. Patient has also followed up with pain management had a history of laparoscopic left inguinal hernia repair with mesh and previous right inguinal hernia repair 2019 and 2005 patient was given gabapentin [facility] Medical History History of fall Impaired glucose tolerance Hearing loss in left ear Facial basal cell cancer Plantar fasciitis Hypertension Vitamin D deficiency BPH (benign prostatic hyperplasia) Hypercholesterolemia Surgical History History of left inguinal hernia repair (09/22/22) History of inguinal hernia repair, bilateral History of strabismus surgery History of arthroscopic knee surgery H/O umbilical hernia repair Social History (Updated 05/19/23 @ 10:56 by Abby Kothari MD) Housing: House Alcohol intake: current Comment: 3x a week 1-2 glasses of wine Patient Tobacco Use Status: Former Tobacco user Years Smoked: [id number] 4-5 years e-Cigarette/Vaping Use: Never Used Second Hand Smoke Exposure: No service: No Current occupational status: retired Cognitive needs: No Hearing needs: No Vision needs: Yes Questionnaire PHQ-9 Over the last 2 weeks, how often have you been bothered by any of the following problems? 1. Little interest or pleasure in doing things: not at all 2. Feeling down, depressed, or hopeless: not at all 3. Trouble falling or staying asleep, or sleeping too much: not at all 4. Feeling tired or having little energy: not at all 5. Poor appetite or overeating: not at all 6. Feeling bad about yourself - or that you are a failure or have let yourself or your family down: not at all 7. Trouble concentrating on things, such as reading the newspaper or watching television: not at all 8. Moving or speaking so slowly that other people could have noticed. Or the opposite - being so fidgety or restless that you have been moving around a lot more than usual: not at all 9. Thoughts that you would be better off or of hurting yourself in some way: not at all Total score: 0 Depression Screening Interpretation: Negative Depression Screening Done: Yes Source: Developed by Drs. Neil Rendon, Chayo Santos, Greg Lopez and colleagues, with an educational benito from [employer] Thrive Questionnaire Date Thrive assessed: 05/19/23 I am a: Patient What is your living situation today?: I have a steady place to live Within the past 12 months, did the food you bought not last and you didn't have the money to get more?: Never true Within the past 12 months, did you worry whether your food would run out before you got money to buy more?: Never true Do you have trouble paying for medicines?: No Do you have trouble getting transportation to medical appointments?: No Do you have trouble paying your heating and electricity bill?: No Do you have trouble taking care of your child, family member or friend?: No Do you have trouble with day-to-day activities such as bathing, preparing meals, shopping, managing finances, etc.?: No Are you currently unemployed and looking for a job?: No Are you interested in more education?: No Please select the resources that you would like help with: None THRIVE Score: 0 AUDIT C Alcohol Use Questionnaire (AUDIT-C) 1. How often do you have a drink containing alcohol?: Monthly or less 2. How many drinks containing alcohol do you have on a typical day when you are drinking?: 1 or 2 3. How often do you have six or more drinks on one occasion?: Never Total Score: 1 Score Reviewed/Action Taken: No NURY-7 AMB Questionnaire NURY-7 Date NURY - 7 assessed: 05/19/23 Feeling nervous, anxious, or on edge: 0 = Not at all Not being able to stop or control worryin = Not at all Worrying too much about different things: 0 = Not at all Trouble relaxin = Not at all Being so restless that it is hard to sit still: 0 = Not at all Becoming easily annoyed or irritable: 0 = Not at all Feeling afraid as if something awful might happen: 0 = Not at all Total NURY-7 score (0-4 normal; 5-9 mild; 10-14 moderate; 15-21 severe): 0 Source: Developed by Drs. Neil Rendon, Chayo Santos, Greg Lopez and colleagues, with an educational benito from [employer] Review of Systems Const Denies poor appetite and Denies weakness Eyes Denies no additional complaints ENT Reports Normal hearing present, Denies dizziness, Denies nasal congestion, Denies tinnitus and Denies sore throat Card Denies chest pain, Denies syncope, Denies rapid heart rate and Denies dyspnea Resp Denies cough and Denies dyspnea GI Denies change in stool character, Reports constipation, Denies diarrhea, Denies nausea and Denies vomiting Denies dysuria and Denies urinary frequency Neuro Reports Normal hearing present, Denies confusion, Denies dizziness, Denies syncope and Denies weakness Psych Denies confusion Physical exam (Primary Care) Vital Signs: Last Vital Signs Pulse 82 05/19/23 10:14 BP 140/78 H 05/19/23 10:14 Pulse Ox 97 05/19/23 10:14 Oxygen Delivery Method Room Air 05/19/23 10:14 BMI result Body Mass Index 25.2 Tobacco/Smoking Status: Tobacco use Status Tobacco use date assessed 05/19/23 05/19/23 10:19 Patient Tobacco Use Status Former Tobacco user 05/19/23 10:19 Tobacco use type 05/11/21 14:07 e-Cigarette/Vaping Use Never Used 05/19/23 10:19 PHQ-9: PHQ-9 Score PHQ-9: Total score 0 05/19/23 10:25 Depression Screening Interpretation: Negative Thrive Assessment: Date of Thrive Assessment Date Thrive assessed 05/19/23 05/19/23 10:19 Const General: No confusion Orientation/consciousness: No confusion HENMT Head: Yes normocephalic Ears: external ears normal and TM's normal bilaterally Face and sinus: Yes normal facial exam Mouth: moist mucous membranes Throat: Yes tonsils normal Eyes Conjunctivae: conjunctivae normal Pupils: Equal, round and reactive pupils present and Pupil accommodation reflex normal Direct Ophthalmoscopy: normal light reflex Neck Neck: No lymphadenopathy Thyroid: Thyroid normal Chest Chest palpation & inspection: normal inspection of the chest Resp Effort & Inspection: normal respiratory effort and no audible wheezes Auscultation: clear to auscultation bilaterally, no crackles, no wheezes and lung sounds not diminished Cardio Rate: regular rate Rhythm: regular rhythm Peripheral pulses: radial pulses present and dorsalis pedis present GI Other: guaiac negative prostate N Palpation (GI): no masses Auscultation: normal bowel sounds and normoactive bowel sounds Rectal Exam - Male: Yes deferred Male General Exam: Yes normal external exam Skin General skin exam: no rashes or lesions noted Rashes: no rashes Neuro General: No confusion Cranial nerves: Yes Equal, round and reactive pupils present and Yes Normal hearing present Cognition (Neuro): normal cognition Gait exam (Neuro): Normal gait present Motor exam (neuro): 5/5 motor strength present throughout Deep tendon reflexes (DTR's): Right brachioradialis reflex intensity grade: 2+, Left brachioradialis reflex intensity grade: 2+, Right patellar reflex intensity grade: 2+ and Left patellar reflex intensity grade: 2+ Extrem General: No edema Assessment and Plan Assessment & Plan (1) Annual physical exam: Code(s): Z00.00 - Encounter for general adult medical examination without abnormal findings (2) Hypertension: Code(s): I10 - Essential (primary) hypertension Plan: Continue with blood pressure medication. Decrease salt intake and exercise patient takes hydrochlorothiazide 12.5 mg once a day. noted high here and advised monitor (3) Impaired glucose tolerance: Code(s): R73.02 - Impaired glucose tolerance (oral) Plan: Decrease the amount of carbohydrate intake, pasta, bread, rice and potatoes are all sugar and that is aside from all the sweet stuff, remember that fruits are good but they are Sweet also. (4) Hypercholesterolemia: Code(s): E78.00 - Pure hypercholesterolemia, unspecified Plan: Avoid fried foods, chicken skin, eggs, butter margarine, pastries and meat. Be it pork or beef they have a lot of cholesterol LDL goal of less than 130 and tr iglyceride of less than 150 (5) BPH (benign prostatic hyperplasia): Code(s): N40.0 - Benign prostatic hyperplasia without lower urinary tract symptoms Plan: Presently on finasteride and tamsulosin (6) Bilateral primary osteoarthritis of knee: Code(s): M17.0 - Bilateral primary osteoarthritis of knee Plan: Patient followed up with orthopedics had injections done (7) Recurrent inguinal hernia: Code(s): K40.91 - Unilateral inguinal hernia, without obstruction or gangrene, recurrent Plan: Patient continues to have pain and was referred to pain management placed on gabapentin. better now (8) Right rib fracture: Comment: 10th rib on the right 01/2023 Code(s): S22.31XA - Fracture of one rib, right side, initial encounter for closed fracture Plan: Discussed and encourage deep breathing to avoid pneumonia Orders: Orders Free T4 (Free Thyroxine) Today E78.00 - Pure hypercholesterolemia, unspecified Thyroid Stimulating Hormone Today E78.00 - Pure hypercholesterolemia, unspecified Prostate Specific Antigen Scr Today E78.00 - Pure hypercholesterolemia, unspecified Lipid Panel Today E78.00 - Pure hypercholesterolemia, unspecified Complete Blood Count Auto Diff Today E78.00 - Pure hypercholesterolemia, unspecified Comprehensive Met. Panel Today E78.00 - Pure hypercholesterolemia, unspecified Vitamin B12 and Folate Today E78.00 - Pure hypercholesterolemia, unspecified Hemoglobin A1c Today E78.00 - Pure hypercholesterolemia, unspecified Coding Level of Care Code Est Pt Prev Care >65y([id number]) Diagnoses Annual physical exam Z00.00 Hypertension I10 Impaired glucose tolerance R73.02 Hypercholesterolemia E78.00 BPH (benign prostatic hyperplasia) N40.0 Bilateral primary osteoarthritis of knee M17.0 Recurrent inguinal hernia K40.91 Right rib fracture S22.31XA
== END 2023-05-19 11:12 | disposition home or self-care (01) ==
PROVIDERS: Visit Provider Internal Medicine
DX: Z00.00 Encounter for general adult medical examination without abnormal findings (principal); I10 Essential (primary) hypertension; R73.02 Impaired glucose tolerance (oral); E78.00 Pure hypercholesterolemia, unspecified; N40.0 Benign prostatic hyperplasia without lower urinary tract symptoms; M17.0 Bilateral primary osteoarthritis of knee; K40.91 Unilateral inguinal hernia, without obstruction or gangrene, recurrent; S22.31XA Fracture of one rib, right side, initial encounter for closed fracture
CPT/HCPCS: 99397

== ENCOUNTER 2023-05-31 06:57 | Outpatient (REF) | payer OTHER, SELFPAY ==
[2023-05-31 07:22] LABS: MANUAL DIFF FLAG NO
[2023-05-31 07:32] LABS: Basophils Absolute Auto 0.1 X10*3/uL (0.0-0.2); Basophils Percent Auto 0.9 % (0-2); Eosinophils Absolute Auto 0.3 X10*3/uL (0.0-0.4); Eosinophils Percent Auto 4.8 % (0-4); Hematocrit 49.5 % (42.0-52.0); Hemoglobin 16.9 g/dl (14.0-18.0); Imm Gran Abs Auto 0.01 X10*3/uL (0.00-0.03); Imm Gran Pct Auto 0.2 % (0.0-0.4); Lymphocytes Absolute Auto 1.5 X10*3/uL (1.2-4.9); Lymphocytes Percent Auto 26.2 % (20-40); Mean Corpuscular HGB Conc 34.1 g/dl (31.0-36.0); Mean Corpuscular Volume 90.8 fL (80.0-98.0); Mean Platelet Volume 9.4 fL (9.4-12.4); Monocytes Absolute Auto 0.7 X10*3/uL (0.1-1.2); Monocytes Percent Auto 12.5 % (2-11); Neutrophils Absolute Auto 3.1 x10*3/uL (2.0-8.3); Neutrophils Percent Auto 55.4 % (45-73); Platelet Count 231 X10*3/uL (160-400); Red Blood Count 5.45 X10*6/uL (4.60-5.80); Red Cell Distribution Width 12.2 % (11.0-16.0); White Blood Count 5.6 X10*3/uL (4.8-10.8)
[2023-05-31 07:46] LABS: Estimated Average Glucose 91 mg/dL; Hemoglobin A1c % 4.8 % (<6.0)
[2023-05-31 08:06] LABS: Alanine Aminotransferase 17 U/L (0-40); Albumin Level 3.9 g/dL (3.5-5.0); Alkaline Phosphatase 42 U/L (39-117); Anion Gap 15 (12-20); Aspartate Amino Transferase 16 U/L (5-37); Bilirubin Total 1.8 mg/dL (0.0-1.0); Blood Urea Nitrogen 21 mg/dL (9-16); Calcium 9.2 mg/dL (8.4-10.2); Carbon Dioxide 30 mmol/L (22-29); Chloride 101 mmol/L (96-108); Cholesterol 231 mg/dL (<200); Estimated Glomerular Filt Rate > 60; Glucose Random 107 mg/dL (60-115); HDL Cholesterol 71 mg/dL (>40); LDL Cholesterol Calculated 132 mg/dL (<100); Potassium 4.6 mmol/L (3.3-5.1); Sodium 141 mmol/L (135-145); Total Protein 6.6 g/dL (6.5-8.0); Triglycerides 144 mg/dL (<150)
[2023-05-31 08:30] LABS: Folate 7.2 ng/mL (> or = 4.0); Prostate Specific Antigen Scr 1.36 ng/mL (<0.05-4.0); Vitamin B12 430 pg/mL (200-900)
[2023-05-31 09:12] LABS: Free T4 (Free Thyroxine) 0.91 ng/dL (0.71-1.85)
== END 2023-05-31 06:58 | disposition home or self-care (01) ==
LOC: HO.LAB 06:57
PROVIDERS: PCP Internal Medicine; Visit Provider Internal Medicine
DX: Z12.5 Encounter for screening for malignant neoplasm of prostate (principal); E78.00 Pure hypercholesterolemia, unspecified
CPT/HCPCS: 36415; 80053; 80061; 82607; 82746; 83036; 84153; 84439; 84443; 85025

== ENCOUNTER 2023-08-25 12:40 | Outpatient (AMB) | payer OTHER, SELFPAY ==
[2023-08-25 12:43] VITALS: BP 142/80; PULSE 91; O2SAT 96; BMI 24.0
--- NOTE | 2023-08-25 12:44 | A.OFFPC_ITS ---
Vital Signs 08/25/23 12:43 Height 6 ft 2 in Weight 187 lb BMI 24.0 BP 142/80 H Blood Pressure Location Lt brachial Position Sitting Pulse 91 Pulse Source Pulse Oximeter Pulse Oximetry (%) 96 Oxygen Delivery Method Room Air Intake Visit Reasons: Hypertension Intake Note: Patient is here to follow up on HTN Psychiatric Tech Required: No Allergies oxycodone [From PERCOCET] Allergy (Unknown, Verified 08/25/23 12:44) ITCHY THROAT, FEELS BAD Tobacco use date assessed: 08/25/23 Fall risk assessment: No Falls in past year Last assessed Fall Risk: 08/25/23 Dental Screening Dental Screen Date: 05/19/23 HPI Hypertension HPI Details 68-year-old male with hypertension impai red glucose tolerance hypercholesterolemia BPH osteoarthritis coming in for follow-up. Patient has a recurrent inguinal hernia having pain placed on gabapentin. [facility] Medical History History of fall Impaired glucose tolerance Hearing loss in left ear Facial basal cell cancer Plantar fasciitis Hypertension Vitamin D deficiency BPH (benign prostatic hyperplasia) Hypercholesterolemia Surgical History History of left inguinal hernia repair (09/22/22) History of inguinal hernia repair, bilateral History of strabismus surgery History of arthroscopic knee surgery H/O umbilical hernia repair Social History (Updated 05/19/23 @ 10:56 by Abby Kothari MD) Housing: House Alcohol intake: current Comment: 3x a week 1-2 glasses of wine Patient Tobacco Use Status: Former Tobacco user Years Smoked: [id number] 4-5 years e-Cigarette/Vaping Use: Never Used Second Hand Smoke Exposure: No service: No Current occupational status: retired Cognitive needs: No Hearing needs: No Vision needs: Yes Questionnaire Thrive Questionnaire Date Thrive assessed: 05/19/23 AUDIT C Alcohol Use Questionnaire (AUDIT-C) 1. How often do you have a drink containing alcohol?: Monthly or less 2. How many drinks containing alcohol do you have on a typical day when you are drinking?: 1 or 2 3. How often do you have six or more drinks on one occasion?: Never Total Score: 1 Score Reviewed/Action Taken: No NURY-7 AMB Questionnaire NURY-7 Date NURY - 7 assessed: 05/19/23 Source: Developed by Drs. Neil Rendon, Chayo Santos, Greg Lopez and colleagues, with an educational benito from [employer]. Physical exam (Primary Care) Vital Signs: Last Vital Signs Pulse 91 08/25/23 12:43 BP 142/80 H 08/25/23 12:43 Pulse Ox 96 08/25/23 12:43 Oxygen Delivery Method Room Air 08/25/23 12:43 BMI result Body Mass Index 24.0 Tobacco/Smoking Status: Tobacco use Status Tobacco use date assessed 08/25/23 08/25/23 12:44 Patient Tobacco Use Status Former Tobacco user 08/25/23 12:44 Tobacco use type 05/11/21 14:07 e-Cigarette/Vaping Use Never Used 08/25/23 12:44 Thrive Assessment: Date of Thrive Assessment Date Thrive assessed 05/19/23 08/25/23 12:44 Const General: alert; No acute distress Eyes Conjunctivae: conjunctivae normal Resp Auscultation: clear to auscultation bilaterally Cardio Rate: regular rate Rhythm: regular rhythm GI Inspection: Yes normal to inspection Extrem General: Yes normal to inspection and No edema Assessment and Plan Assessment & Plan (1) Hypercholesterolemia: Code(s): E78.00 - Pure hypercholesterolemia, unspecified Plan: Avoid fried foods, chicken skin, eggs, butter margarine, pastries and meat. Be it pork or beef they have a lot of cholesterol LDL goal of less than 130 and triglyceride of less than 150. (2) BPH (benign prostatic hyperplasia): Code(s): N40.0 - Benign prostatic hyperplasia without lower urinary tract symptoms Plan: Continue with finasteride 5 mg once a day (3) Hypertension: Code(s): I10 - Essential (primary) hypertension Plan: Continue with blood pressure medication. Decrease salt intake and exercise placed on hydrochlorothiazide 12.5 mg once a day (4) Impaired glucose tolerance: Code(s): R73.02 - Impaired glucose tolerance (oral) Plan: Decrease the amount of carbohydrate intake, pasta, bread, rice and potatoes are all sugar and that is aside from all the sweet stuff, remember that fruits are good but they are Sweet also. (5) Bilateral primary osteoarthritis of knee: Code(s): M17.0 - Bilateral primary osteoarthritis of knee Plan: Keep active Orders: Orders Basic Metabolic Panel 3 Months I10 - Essential (primary) hypertension Medications: New lisinopril 10 mg PO DAILY 30 tabs 4RF I10 - Essential (primary) hypertension Coding Level of Care Code Est Pt Level 4 ([id number]) Diagnoses Hypercholesterolemia E78.00 BPH (benign prostatic hyperplasia) N40.0 Hypertension I10 Impaired glucose tolerance R73.02 Bilateral primary osteoarthritis of knee M17.0
== END 2023-08-25 13:34 | disposition home or self-care (01) ==
PROVIDERS: PCP Internal Medicine; Visit Provider Internal Medicine
DX: E78.00 Pure hypercholesterolemia, unspecified (principal); N40.0 Benign prostatic hyperplasia without lower urinary tract symptoms; I10 Essential (primary) hypertension; R73.02 Impaired glucose tolerance (oral); M17.0 Bilateral primary osteoarthritis of knee
CPT/HCPCS: 99214

== ENCOUNTER 2023-10-25 07:50 | Outpatient (AMB) | payer OTHER, SELFPAY ==
[2023-10-25 07:56] VITALS: BP 140/70; PULSE 93; O2SAT 99; BMI 24.4
--- NOTE | 2023-10-25 07:56 | MHC.PC.OV ---
Vital Signs 10/25/23 07:56 Height 6 ft 2 in Weight 190 lb BMI 24.4 BP 140/70 H Blood Pressure Location Lt brachial Position Sitting Pulse 93 Pulse Source Pulse Oximeter Pulse Oximetry (%) 99 Oxygen Delivery Method Room Air Intake Visit Reasons: [facility] 10/15 Fracture pelvis Intake Note: Patient is here for hospital discharge follow up. Patient was discharged from [facility] on 10/15 Allergies oxycodone [From PERCOCET] Allergy (Unknown, Verified 10/25/23 08:28) ITCHY THROAT, FEELS BAD Medication List - Last Reconciled 10/25/23 by Martine Lin PA-C finasteride 5 mg PO DAILY gabapentin 300 mg PO BEDTIME hydrochlorothiazide 12.5 mg PO QAM [instaflex PO] lisinopril 10 mg PO DAILY naproxen 500 mg PO BID PRN tamsulosin (Flomax) 0.4 mg PO DAILY Tobacco use date assessed: 08/25/23 Fall risk assessment: 1 Fall in past year Last assessed Fall Risk: 10/25/23 Dental Screening Dental Screen Date: 05/19/23 HPI [facility] 10/15 Fracture pelvis HPI Details 68-year-old male with hypertension, impaired glucose tolerance, hypercholesterolemia, BPH, and osteoarthritis last seen by Dr. Kothari August 2023 coming in for ED follow up. Patient presented to [facility] ED 10/15/2023 after a mechanical fall at home. Patient was found at the bottom of 16 steps and endorses loss of consciousness. Imaging showed acute L2 and L4 compression fractures, bilateral L5 transverse process fractures, bilateral sacral alar fractures, bilateral iliac fractures.? Per orthopedics recommended weight-bearing as tolerated on the left lower extremity and touchdown weight-bearing on the right with outpatient [facility] follow-up. Also seen by Neurosurgery who recommended L-spine for comfort. Is being seen by occupational therapy and physical therapy. Per occupational therapy they will be working with the patient once weekly for the next two weeks. Today he tells us he is still having low back pain and bilateral hip pain. He has using a walker to ambulate at home 3 to 4 times a day but is primarily using a wheelchair to get around, unable to stand without assistance. He occasionally uses a back brace for comfort. He has been following with occupational therapy weekly. When he is stationary he regularly does his exercises and rotates to avoid pressure sores. He had been using oxycodone as needed for pain with good relief but has run out. Currently is using Tylenol and ibuprofen for pain with mild relief. Denies any pain in his tailbone. Denies any recurrent falls or syncope. Patient feels he has adequate services and support at home. Is following up with [facility] on October 29. [facility] Medical History History of fall Impaired glucose tolerance Hearing loss in left ear Facial basal cell cancer Plantar fasciitis Hypertension Vitamin D deficiency BPH (benign prostatic hyperplasia) Hypercholesterolemia Surgical History History of left inguinal hernia repair (09/22/22) History of inguinal hernia repair, bilateral History of strabismus surgery History of arthroscopic knee surgery H/O umbilical hernia repair Social History Housing: House Alcohol intake: current Comment: 3x a week 1-2 glasses of wine Patient Tobacco Use Status: Former Tobacco user Years Smoked: [id number] 4-5 years e-Cigarette/Vaping Use: Never Used Second Hand Smoke Exposure: No service: No Current occupational status: retired Cognitive needs: No Hearing needs: No Vision needs: Yes Questionnaire Thrive Questionnaire Date Thrive assessed: 05/19/23 AUDIT C Alcohol Use Questionnaire (AUDIT-C) 1. How often do you have a drink containing alcohol?: Monthly or less 2. How many drinks containing alcohol do you have on a typical day when you are drinking?: 1 or 2 3. How often do you have six or more drinks on one occasion?: Never Total Score: 1 Score Reviewed/Action Taken: No NURY-7 AMB Questionnaire NURY-7 Date NURY - 7 assessed: 05/19/23 Source: Developed by Drs. Neil Rendon, Chayo Santos, Greg Lopez and colleagues, with an educational benito from [employer] Review of Systems Const Denies chills, Denies fever(s), Denies frequent falls and Reports weakness Eyes Reports no additional complaints Card Reports no additional complaints, Denies chest pain, Denies syncope, Denies lightheadedness and Denies dyspnea Resp Reports no additional complaints and Denies dyspnea Musc Details: Low back and hip pain bilaterally. Bruising and tenderness over the low back. Denies numbness and tingling in lower extremities Reports abnormal gait (Ambulating with walker and wheelchair) Skin/Breast Details: Large bruise on low back Neuro Reports abnormal gait (Ambulating with walker and wheelchair), Denies confusion, Denies syncope, Denies frequent falls, Denies radicular pain and Reports weakness Psych Denies confusion Physical exam (Primary Care) Vital Signs: Last Vital Signs Pulse 93 10/25/23 07:56 BP 140/70 H 10/25/23 07:56 Pulse Ox 99 10/25/23 07:56 Oxygen Delivery Method Room Air 10/25/23 07:56 BMI result Body Mass Index 24.4 Tobacco/Smoking Status: Tobacco use Status Tobacco use date assessed 08/25/23 10/25/23 07:58 Patient Tobacco Use Status Former Tobacco user 10/25/23 07:58 Tobacco use type 05/11/21 14:07 e-Cigarette/Vaping Use Never Used 10/25/23 07:58 Thrive Assessment: Date of Thrive Assessment Date Thrive assessed 05/19/23 10/25/23 07:58 Const General: cooperative, healthy appearing and alert; No confusion Nutritional Appearance: average body habitus Orientation/consciousness: patient oriented x3 and No confusion Limitations: wheelchair HENMT Head: Yes normal to inspection Eyes General: appearance normal, both eyes and all related structures Conjunctivae: conjunctivae normal Neck Neck: Yes normal visual inspection and Yes full ROM Chest Chest palpation & inspection: normal inspection of the chest Resp Effort & Inspection: normal respiratory effort, able to speak in complete sentences and no cough Auscultation: clear to auscultation bilaterally, no crackles, no rales, no rhonchi and no wheezes Cardio Rate: regular rate Rhythm: regular rhythm Heart sounds: S1 normal heart sound present and S2 normal heart sound present Peripheral pulses: dorsalis pedis present Back/Spine/Pelvis Other: Low back tenderness and ecchymosis. Back and hip exam limited due to pain. Skin General skin exam: no rashes or lesions noted Neuro Other: Intact and equal sensation, strength, and pulses in bilateral lower extremities. General: patient oriented x3 and No confusion Gait exam (Neuro): Assisted gait required (Wheelchair) Extrem Other: No tenderness to palpation of lower extremities. Pain with extension of left leg. General: Yes full ROM, No no pedal edema and No edema Psych Affect: normal affect Attitude: cooperative Thought process: Normal thought process present Thought content: Normal thought content present Insight: Good insight present (Psych) Judgement: Good judgement present (Psych) Assessment and Plan Assessment & Plan (1) Pelvic fracture: Code(s): S32.9XXA - Fracture of unspecified parts of lumbosacral spine and pelvis, initial encounter for closed fracture Qualifiers: Encounter type: subsequent encounter Fracture healing: with routine healing Fracture morphology: other fracture Fracture type: closed Laterality: unspecified laterality Pelvic bone location: ilium Qualified Code(s): S32.399D - Other fracture of unspecified ilium, subsequent encounter for fracture with routine healing Plan: Currently working with occupational therapy in home and will follow up with them outpatient. Receiving in-home services from [facility]. Patient is following with [facility] on October 29 and will forward notes to our office. Was provided an out of work note until re-evaluation from Orthopedics. (2) Compression fracture of lumbar vertebra: Code(s): S32.000A - Wedge compression fracture of unspecified lumbar vertebra, initial encounter for closed fracture Qualifiers: Encounter type: subsequent encounter Fracture healing: with routine healing Lumbar vertebra fracture level: L2 Qualified Code(s): S32.020D - Wedge compression fracture of second lumbar vertebra, subsequent encounter for fracture with routine healing Plan: Patient is ambulating with walker at home and primarily in the wheelchair outside of the home. Wears a back brace as needed for comfort. Working with occupational therapy and will follow up with [facility] October 29. Patient counseled on the risks of remaining stationary and encouraged to ambulate as tolerated and as directed every 2-3 hours at home. Patient is out of oxycodone from the hospital. We will give 1 week of tramadol until patient can follow up with Orthopedics. Instructed patient to start slow with tramadol once at night to see how he tolerates it. Informed this prescription will not be refilled and should not be shared with any person. Plan Thank you for allowing me to participate in the care of this patient. I personally spent 30 minutes reviewing, examining and charting on this patient. Coding Level of Care Code Est Pt Level 4 (73052) Diagnoses Other closed fracture of ilium with routine healing, unspecified laterality, subsequent encounter S32.399D Encounter type: subsequent encounter Fracture healing: with routine healing Fracture morphology: other fracture Fracture type: closed Laterality: unspecified laterality Pelvic bone location: ilium Compression fracture of L2 vertebra with routine healing, subsequent encounter S32.020D Encounter type: subsequent encounter Fracture healing: with routine healing Lumbar vertebra fracture level: L2
== END 2023-10-25 08:23 | disposition home or self-care (01) ==
PROVIDERS: PCP Internal Medicine
DX: S32.39 Other fracture of ilium (principal); S32.020D Wedge compression fracture of second lumbar vertebra, subsequent encounter for fracture with routine healing
CPT/HCPCS: 99214

== ENCOUNTER 2024-01-15 12:53 | Outpatient (AMB) | payer OTHER, SELFPAY ==
[2024-01-15 12:56] VITALS: BP 132/72; PULSE 93; O2SAT 99; BMI 21.8
--- NOTE | 2024-01-15 12:56 | MHC.PC.OV ---
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 Accompanied by: Self / Same As Patient Allergies oxycodone [From PERCOCET] Allergy (Unknown, Verified 01/15/24 12:57) ITCHY THROAT, FEELS BAD Tobacco use date assessed: 08/25/23 Fall risk assessment: 1 Fall in past year Last assessed Fall Risk: 01/15/24 Dental Screening Dental Screen Date: 01/15/24 Did you have a dental visit in the last 12 months?: No Did you have a dental problem in the last 6 months where you did not have access to dental care?: No Was dental information given to patient?: Patient has dentist HPI HTN, knee OA HPI Details 69-year-old male with a history of BPH hypercholesterolemia hypertension impaired glucose tolerance coming in for follow-up. Last seen in October 24 from a fall. Review of the notes follows up with vascular for kyphoplasty/sacroplasty evaluation in the setting of vertebral compression and sacral fractures falling from the stairs CT scan showed L2 and L4 compression fractures, bilateral L5 transverse process fractures and bilateral sacral alar fracture with additional bilateral iliac fractures. Ambulates with a walker did not recommend kyphoplasty due to improvement advised osteoporosis workup. noted 20 lb weight loss, can taste food but no apetitte, had diarrhea, no n no night sweats, occ dizzy, no cough,no sob, no bowel symptoms, has diarrhea last month [facility] Medical History History of fall Impaired glucose tolerance Hearing loss in left ear Facial basal cell cancer Plantar fasciitis Hypertension Vitamin D deficiency BPH (benign prostatic hyperplasia) Hypercholesterolemia Surgical History History of left inguinal hernia repair (09/22/22) History of inguinal hernia repair, bilateral History of strabismus surgery History of arthroscopic knee surgery H/O umbilical hernia repair Social History Housing: House Alcohol intake: current Comment: 3x a week 1-2 glasses of wine Patient Tobacco Use Status: Former Tobacco user Years Smoked: [id number] 4-5 years e-Cigarette/Vaping Use: Never Used Second Hand Smoke Exposure: No service: No Current occupational status: retired Cognitive needs: No Hearing needs: No Vision needs: Yes Questionnaire Thrive Questionnaire Date Thrive assessed: 05/19/23 Are you currently unemployed and looking for a job?: No NURY-7 AMB Questionnaire NURY-7 Date NURY - 7 assessed: 05/19/23 Source: Developed by Drs. Neil Rendon, Chayo Santos, Greg Lopez and colleagues, with an educational benito from [employer]. Physical exam (Primary Care) Vital Signs: Last Vital Signs Pulse 93 01/15/24 12:56 BP 132/72 01/15/24 12:56 Pulse Ox 99 01/15/24 12:56 Oxygen Delivery Method Room Air 01/15/24 12:56 BMI result Body Mass Index 21.8 Tobacco/Smoking Status: Tobacco use Status Tobacco use date assessed 08/25/23 01/15/24 13:00 Patient Tobacco Use Status Former Tobacco user 01/15/24 13:00 Tobacco use type 05/11/21 14:07 e-Cigarette/Vaping Use Never Used 01/15/24 13:00 Thrive Assessment: Date of Thrive Assessment Date Thrive assessed 05/19/23 01/15/24 13:00 Const General: alert; No acute distress Eyes Conjunctivae: conjunctivae normal Resp Auscultation: clear to auscultation bilaterally Cardio Rate: regular rate Rhythm: regular rhythm GI Inspection: Yes normal to inspection Extrem General: Yes normal to inspection and No edema Assessment and Plan Assessment & Plan (1) Compression fracture of lumbar vertebra: Comment: October 18 2023 L2 and L4 from fall from stairs Code(s): S32.000A - Wedge compression fracture of unspecified lumbar vertebra, initial encounter for closed fracture Qualifiers: Encounter type: subsequent encounter Lumbar vertebra fracture level: L2 Fracture healing: with routine healing Qualified Code(s): S32.020D - Wedge compression fracture of second lumbar vertebra, subsequent encounter for fracture with routine healing Plan: Patient has been evaluated by the surgeon and has treated conservatively (2) Pelvic fracture: Comment: October 18 2023 Code(s): S32.9XXA - Fracture of unspecified parts of lumbosacral spine and pelvis, initial encounter for closed fracture Qualifiers: Encounter type: subsequent encounter Pelvic bone location: ilium Fracture type: closed Fracture morphology: other fracture Laterality: unspecified laterality Fracture healing: with routine healing Qualified Code(s): S32.399D - Other fracture of unspecified ilium, subsequent encounter for fracture with routine healing Plan: Conservative treatment (3) BPH (benign prostatic hyperplasia): Code(s): N40.0 - Benign prostatic hyperplasia without lower urinary tract symptoms Plan: Continue with tamsulosin and finasteride (4) Hypertension: Code(s): I10 - Essential (primary) hypertension Plan: Continue with blood pressure medication. Decrease salt intake and exercise on lisinopril hydrochlorothiazide (5) Weight loss: Code(s): R63.4 - Abnormal weight loss (6) Dizziness: Code(s): R42 - Dizziness and giddiness (7) Head trauma: Comment: 09/2023 Code(s): S09.90XA - Unspecified injury of head, initial encounter (8) Dysphagia: Code(s): R13.10 - Dysphagia, unspecified Orders: Orders Complete Blood Count Auto Diff Today R63.4 - Abnormal weight loss Comprehensive Met. Panel Today R63.4 - Abnormal weight loss Thyroid Stimulating Hormone Today R63.4 - Abnormal weight loss Vitamin B12 and Folate Today R63.4 - Abnormal weight loss XR DEXA axial skeleton Today M81.0 - Age-related osteoporosis without current pathological fracture, S32.020D - Wedge compression fracture of second lumbar vertebra, subsequent encounter for fracture with routine healing Free T4 (Free Thyroxine) Today R63.4 - Abnormal weight loss Lipid Panel Today E78.00 - Pure hypercholesterolemia, unspecified, R63.4 - Abnormal weight loss Prostate Specific Antigen Scr Today R63.4 - Abnormal weight loss CT head/brain wo IV con Today R42 - Dizziness and giddiness, S09.90XA - Unspecified injury of head, initial encounter UA w Microscopic Today I10 - Essential (primary) hypertension [place] barium swallow Today R13.10 - Dysphagia, unspecified Coding Level of Care Code Est Pt Level 4 (65457) Diagnoses Compression fracture of L2 vertebra with routine healing, subsequent encounter S32.020D Encounter type: subsequent encounter Lumbar vertebra fracture level: L2 Fracture healing: with routine healing Other closed fracture of ilium with routine healing, unspecified laterality, subsequent encounter S32.399D Encounter type: subsequent encounter Pelvic bone location: ilium Fracture type: closed Fracture morphology: other fracture Laterality: unspecified laterality Fracture healing: with routine healing BPH (benign prostatic hyperplasia) N40.0 Hypertension I10 Weight loss R63.4 Dizziness R42 Head trauma S09.90XA Dysphagia R13.10
== END 2024-01-15 13:53 | disposition home or self-care (01) ==
PROVIDERS: PCP Internal Medicine; Visit Provider Internal Medicine
DX: S32.020D Wedge compression fracture of second lumbar vertebra, subsequent encounter for fracture with routine healing (principal); S32.39 Other fracture of ilium; N40.0 Benign prostatic hyperplasia without lower urinary tract symptoms; I10 Essential (primary) hypertension; R63.4 Abnormal weight loss; R42 Dizziness and giddiness; S09.90XA Unspecified injury of head, initial encounter; R13.10 Dysphagia, unspecified

== ENCOUNTER → 2024-01-15 12:53 | Outpatient (BNVA) | payer OTHER, SELFPAY | LOC: CF 01-16 08:29 | PROVIDERS: PCP Internal Medicine; Visit Provider Internal Medicine | DX: S32.020D Wedge compression fracture of second lumbar vertebra, subsequent encounter for fracture with routine healing (principal); S32.39 Other fracture of ilium; S09.90XD Unspecified injury of head, subsequent encounter; N40.0 Benign prostatic hyperplasia without lower urinary tract symptoms; I10 Essential (primary) hypertension; R63.4 Abnormal weight loss; R42 Dizziness and giddiness; R13.10 Dysphagia, unspecified; Z79.899 Other long term (current) drug therapy ==

== ENCOUNTER 2024-01-16 08:29 | Outpatient (REF) | payer OTHER, SELFPAY ==
[2024-01-16 08:37] LABS: MANUAL DIFF FLAG NO
[2024-01-16 09:22] LABS: Basophils Absolute Auto 0.1 X10*3/uL (0.0-0.2); Basophils Percent Auto 0.7 % (0-2); Eosinophils Absolute Auto 0.1 X10*3/uL (0.0-0.4); Eosinophils Percent Auto 1.7 % (0-4); Hematocrit 45.8 % (42.0-52.0); Hemoglobin 15.5 g/dl (14.0-18.0); Imm Gran Abs Auto 0.03 X10*3/uL (0.00-0.03); Imm Gran Pct Auto 0.4 % (0.0-0.4); Lymphocytes Absolute Auto 1.5 X10*3/uL (1.2-4.9); Lymphocytes Percent Auto 21.2 % (20-40); Mean Corpuscular HGB Conc 33.8 g/dl (31.0-36.0); Mean Corpuscular Hemoglobin 30.9 pg (27.0-33.0); Mean Corpuscular Volume 91.4 fL (80.0-98.0); Mean Platelet Volume 9.9 fL (9.4-12.4); Monocytes Absolute Auto 0.8 X10*3/uL (0.1-1.2); Monocytes Percent Auto 11.7 % (2-11); Neutrophils Absolute Auto 4.4 x10*3/uL (2.0-8.3); Neutrophils Percent Auto 64.3 % (45-73); Platelet Count 265 X10*3/uL (160-400); Red Blood Count 5.01 X10*6/uL (4.60-5.80); Red Cell Distribution Width 12.3 % (11.0-16.0); White Blood Count 6.9 X10*3/uL (4.8-10.8)
[2024-01-16 09:47] LABS: Appearance Urine Clear; Color Urine Yellow; Glucose Urine UA Negative (Negative); Leukocyte Esterase Urine Negative (Negative); Nitrite Urine Negative (Negative); Specific Gravity - Urine 1.015 (1.005-1.025); Urine Blood Negative (Negative); Urine Ketones Negative (Negative); Urine Protein Negative (Neg-Trace)
[2024-01-16 09:58] LABS: Bacteria Urine None Seen (None Seen); Hyaline Casts Urine 0-2 /LPF (0-2); RBC Urine 0-2 /HPF (0-2); Squamous Epithelial Cell Urine 0-2 /HPF (0-2); WBC Urine 0-5 /HPF (0-5)
[2024-01-16 10:23] LABS: Free T4 (Free Thyroxine) 0.99 ng/dL (0.71-1.85); Thyroid Stimulating Hormone 2.85 uIU/mL (0.32-4.0)
[2024-01-16 10:31] LABS: Folate 6.8 ng/mL (> or = 4.0); Prostate Specific Antigen Scr 1.39 ng/mL (<0.05-4.0); Vitamin B12 599 pg/mL (200-900)
[2024-01-16 11:38] LABS: Alanine Aminotransferase 11 U/L (0-40); Alkaline Phosphatase 49 U/L (39-117); Anion Gap 10 (12-20); Aspartate Amino Transferase 13 U/L (5-37); Bilirubin Total 1.6 mg/dL (0.0-1.0); Blood Urea Nitrogen 14 mg/dL (9-16); Calcium 9.4 mg/dL (8.4-10.2); Carbon Dioxide 31 mmol/L (22-29); Chloride 103 mmol/L (96-108); Cholesterol 215 mg/dL (<200); Estimated Glomerular Filt Rate > 60; Glucose Random 103 mg/dL (60-115); HDL Cholesterol 64 mg/dL (>40); LDL Cholesterol Calculated 125 mg/dL (<100); Potassium 4.2 mmol/L (3.3-5.1); Sodium 140 mmol/L (135-145); Total Protein 6.7 g/dL (6.5-8.0); Triglycerides 134 mg/dL (<150)
== END 2024-01-16 08:30 | disposition home or self-care (01) ==
LOC: HO.LAB 08:29
PROVIDERS: PCP Internal Medicine; Visit Provider Internal Medicine
DX: R63.4 Abnormal weight loss (principal); E78.00 Pure hypercholesterolemia, unspecified; I10 Essential (primary) hypertension; Z12.5 Encounter for screening for malignant neoplasm of prostate
CPT/HCPCS: 36415; 80053; 80061; 81001; 82607; 82746; 84153; 84439; 84443; 85025

== ENCOUNTER 2024-02-09 15:23 | Outpatient (AMB) | payer OTHER, SELFPAY ==
[2024-02-09 15:24] VITALS: BP 132/60; PULSE 92; O2SAT 99; BMI 21.4
--- NOTE | 2024-02-09 15:24 | A.OFFPC_ITS ---
Vital Signs 02/09/24 15:24 Height 6 ft 2 in Weight 167 lb BMI 21.4 BP 132/60 Blood Pressure Location Lt brachial Position Sitting Pulse 92 Pulse Source Pulse Oximeter Pulse Oximetry (%) 99 Oxygen Delivery Method Room Air Intake Visit Reasons: [facility] 01/31 possible seizure Intake Note: Patient is here to follow-up after a visit the emergency department at [facility] on 02/01/2024 Allergies oxycodone [From PERCOCET] Allergy (Unknown, Verified 02/09/24 15:25) ITCHY THROAT, FEELS BAD Medication List - Last Reconciled 02/09/24 by Martine Lin PA-C finasteride 5 mg PO DAILY gabapentin 300 mg PO BEDTIME hydrochlorothiazide 12.5 mg PO QAM lisinopril 10 mg PO DAILY tamsulosin (Flomax) 0.4 mg PO DAILY tramadol 50 mg PO TID PRN 7 days Tobacco use date assessed: 08/25/23 Fall risk assessment: No Falls in past year Last assessed Fall Risk: 02/09/24 Dental Screening Dental Screen Date: 01/15/24 HPI [facility] 01/31 possible seizure HPI Details 69-year-old male with hypertension, impa ired glucose tolerance, hypercholesterolemia, BPH, and osteoarthritis last seen by Dr. Kothari January 15 coming in for hospital discharge follow up. In review of the notes, patient was seen at [facility] ED 02/01/2024 after being found unresponsive. EMS administered IV Narcan with mild improvement in symptoms. CT negative for any abnormality suspected possible over sedation from Tramadol, alcohol and CBD products. Patient presents today with his and states he does not remember the episode he had last week. His mentions the episode he had involved him being incredibly tense and making random noises. She also mentions he had an episode of staring blankly and not responding back in October. He has been working with PT for his back pain and has been improving. He has a follow up with [facility] coming up in the next month. ON LICENSE OF [facility] Medical History (Updated 02/09/24 @ 15:59 by Martine Lin PA-C) Head trauma History of fall Impaired glucose tolerance Hearing loss in left ear Facial basal cell cancer Plantar fasciitis Hypertension Vitamin D deficiency BPH (benign prostatic hyperplasia) Hypercholesterolemia Surgical History History of left inguinal hernia repair (09/22/22) History of inguinal hernia repair, bilateral History of strabismus surgery History of arthroscopic knee surgery H/O umbilical hernia repair Social History Housing: House Alcohol intake: current Comment: 3x a week 1-2 glasses of wine Patient Tobacco Use Status: Former Tobacco user Years Smoked: [id number] 4-5 years e-Cigarette/Vaping Use: Never Used Second Hand Smoke Exposure: No service: No Current occupational status: retired Cognitive needs: No Hearing needs: No Vision needs: Yes Questionnaire Thrive Questionnaire Date Thrive assessed: 05/19/23 Are you currently unemployed and looking for a job?: No AUDIT C Alcohol Use Questionnaire (AUDIT-C) 1. How often do you have a drink containing alcohol?: Monthly or less 2. How many drinks containing alcohol do you have on a typical day when you are drinking?: 1 or 2 3. How often do you have six or more drinks on one occasion?: Never Total Score: 1 Score Reviewed/Action Taken: No NURY-7 AMB Questionnaire NURY-7 Date NURY - 7 assessed: 05/19/23 Source: Developed by Drs. Neil Rendon, Chayo Santos, Greg Lopez and colleagues, with an educational benito from [employer]. Review of Systems Const Denies body aches, Denies chills, Denies fever(s), Denies headache(s), Reports poor appetite and Reports weight loss Eyes Reports no additional complaints ENT Denies dysphagia, Denies dizziness, Denies headache(s) and Denies odynophagia Card Denies chest pain, Denies syncope, Denies edema, Denies irregular heart rhythm, Denies lightheadedness and Denies dyspnea Resp Denies cough and Denies dyspnea GI Denies abdominal pain, Denies constipation, Denies dysphagia, Denies diarrhea, Denies nausea, Denies odynophagia and Denies vomiting Reports no additional complaints Musc Reports no additional complaints and Reports abnormal gait Skin/Breast Reports system reviewed and no additional complaints, except as documented Neuro Reports abnormal gait, Denies dizziness, Denies syncope, Denies headache(s) and Reports seizure-like activity Psych Reports no additional complaints Physical exam (Primary Care) Vital Signs: Last Vital Signs Pulse 92 02/09/24 15:24 BP 132/60 02/09/24 15:24 Pulse Ox 99 02/09/24 15:24 Oxygen Delivery Method Room Air 02/09/24 15:24 BMI result Body Mass Index 21.4 Tobacco/Smoking Status: Tobacco use Status Tobacco use date assessed 08/25/23 02/09/24 15:25 Patient Tobacco Use Status Former Tobacco user 02/09/24 15:25 Tobacco use type 05/11/21 14:07 e-Cigarette/Vaping Use Never Used 02/09/24 15:25 Thrive Assessment: Date of Thrive Assessment Date Thrive assessed 05/19/23 02/09/24 15:25 Const General: cooperative, healthy appearing, comfortable and no acute distress Orientation/consciousness: patient oriented x3 HENMT Head: Yes normocephalic Ears: hearing grossly normal bilaterally General nose exam: Normal external nose present Eyes General: appearance normal, both eyes and all related structures Conjunctivae: conjunctivae normal Pupils: Equal, round and reactive pupils present EOM: EOMs intact bilaterally and No Nystagmus present Neck Neck: Yes full ROM and Yes no lymphadenopathy Resp Effort & Inspection: normal respiratory effort Auscultation: clear to auscultation bilaterally, no crackles, no rales, no rhonchi and no wheezes Cardio Rate: regular rate Rhythm: regular rhythm Skin General skin exam: no rashes or lesions noted Neuro General: patient oriented x3 Cranial nerves: Yes Equal, round and reactive pupils present, Yes Bilaterally intact EOM present, Yes Normal facial strength present, Yes Ability to bilaterally rotate head present, Yes Ability to bilaterally elevate shoulders present and No Nystagmus present Cognition (Neuro): normal cognition Gait exam (Neuro): Normal gait present Motor exam (neuro): 5/5 motor strength present throughout Extrem General: Yes normal to inspection, Yes full ROM and No edema Psych Affect: normal affect Attitude: cooperative Insight: Good insight present (Psych) Judgement: Good judgement present (Psych) Coding Level of Care Code Est Pt Level 4 (65766) Diagnoses Head trauma S09.90XA Seizure-like activity R56.9 Compression fracture of L2 vertebra with routine healing, subsequent encounter S32.020D Encounter type: subsequent encounter Lumbar vertebra fracture level: L2 Fracture healing: with routine healing Other closed fracture of ilium with routine healing, unspecified laterality, subsequent encounter S32.399D Encounter type: subsequent encounter Pelvic bone location: ilium Fracture type: closed Fracture morphology: other fracture Laterality: unspecified laterality Fracture healing: with routine healing Assessment & Plan Assessment & Plan (1) Head trauma: Comment: 09/2023 Code(s): S09.90XA - Unspecified injury of head, initial encounter Category: Medical Plan: Patient had head injury back in October and since the injury has been having seizure-like activity and weakness as well as unintentional weight loss. Ordered for MRI for further evaluation as well as EEG. (2) Seizure-like activity: Code(s): R56.9 - Unspecified convulsions Category: Medical Plan: Ordered for MRI of head and EEG for further evaluation of seizure-like activity. Referral was placed to Neurology. (3) Compression fracture of lumbar vertebra: Comment: October 18 2023 L2 and L4 from fall from stairs Code(s): S32.000A - Wedge compression fracture of unspecified lumbar vertebra, initial encounter for closed fracture Category: Medical Qualifiers: Encounter type: subsequent encounter Lumbar vertebra fracture level: L2 Fracture healing: with routine healing Qualified Code(s): S32.020D - Wedge compression fracture of second lumbar vertebra, subsequent encounter for fracture with routine healing Plan: Continue to follow up with [facility]. (4) Pelvic fracture: Comment: October 18 2023 Code(s): S32.9XXA - Fracture of unspecified parts of lumbosacral spine and pelvis, initial encounter for closed fracture Category: Medical Qualifiers: Encounter type: subsequent encounter Pelvic bone location: ilium Fracture type: closed Fracture morphology: other fracture Laterality: unspecified laterality Fracture healing: with routine healing Qualified Code(s): S32.399D - Other fracture of unspecified ilium, subsequent encounter for fracture with routine healing Plan: Continue to follow up with [facility]. Plan This note was constructed using voice recognition software. While every effort has been made to ensure accuracy and pecan gatherer, still areas may have been included sometimes these areas may affect the content or meeting of the given symptoms. Total time spent caring for the patient today was 30 minutes. This includes time spent before the visit reviewing the chart, time spent during the visit, and time spent after the visit and documentation. Orders: Orders 2 EEG electroencephalogram Today R42 - Dizziness and giddiness, R56.9 - Unspecified convulsions, S09.90XA - Unspecified injury of head, initial encounter MR head/brain wo con Today R42 - Dizziness and giddiness, R56.9 - Unspecified convulsions, S09.90XA - Unspecified injury of head, initial encounter Referrals Neurology Referral R56.9 - Unspecified convulsions, S09.90XA - Unspecified injury of head, initial encounter Medications: Refilled tamsulosin (Flomax) 0.4 mg PO DAILY 90 caps 3RF
== END 2024-02-09 16:06 | disposition home or self-care (01) ==
PROVIDERS: PCP Internal Medicine
DX: S09.90XA Unspecified injury of head, initial encounter (principal); R56.9 Unspecified convulsions; S32.020D Wedge compression fracture of second lumbar vertebra, subsequent encounter for fracture with routine healing; S32.39 Other fracture of ilium

== ENCOUNTER 2024-02-14 09:03 | Outpatient (REF) | payer OTHER, SELFPAY ==
--- NOTE | ~2024-02-14 | MM_ITS ---
EXAMINATION: BONE DENSITOMETRY CLINICAL INDICATION: Age-related osteoporosis without current pathological fracture. COMPARISON: This is the patient's baseline examination. TECHNIQUE: Using a [employer] DXA System (software version: 13.1) manufactured by [employer], dual-energy x-ray absorptiometry was performed of the lumbar spine and left hip. The images are of good technical quality. Summary results are attached. FINDINGS: LEFT FEMUR, NECK: BMD 0.845 g/cm2, Z-score -0.4, T-score -1.7, osteopenia. LEFT FEMUR, TOTAL: BMD 0.925 g/cm2, Z-score -0.4, T-score -1.2, osteopenia. AP SPINE L1-L4: BMD 1.125 g/cm2, Z-score -0.1, T-score -0.8, normal. IDENTIFIED RISK FACTORS: History of fracture (adult). HISTORY OF FRACTURE: Pelvis, spine. MEDICATIONS: Vitamin D. MM/XR DEXA axial skeleton IMPRESSION: 1. DIAGNOSIS: Osteopenia based on the lowest T-score value of -1.7 in the femoral neck applying World Health Organization criteria. 2. 10-YEAR FRACTURE RISK PREDICTION, FRAX: Major osteoporotic fracture (clinical spine, forearm, hip or shoulder) 9.4%. Hip fracture 2.2%. 3. Treatment Recommendations: NOF guidelines recommend consideration for treatment in postmenopausal women and men age 50 and older presenting with the following: -A hip or vertebral (clinical or morphometric) fracture. -T-score less than or equal to -2.5 at the femoral neck or spine after appropriate evaluation to exclude secondary causes. -Low bone mass at the hip or spine and a 10-year fracture probability by FRAX of greater than or equal to 3% for hip fracture or greater than or equal to 20% for major osteoporotic fracture based on the [place] adapted WHO algorithm. 4. Other Recommendations: All treatment decisions require clinical judgment and consideration of individual patient factors, including patient preferences, comorbidities, previous drug use, risk factors not captured in the FRAX model (e.g. frailty, falls, vitamin D deficiency, increased bone turnover, interval significant decline in bone density) and possible under or overestimation of fracture risk by FRAX. Additional medical evaluation for secondary cause of low bone mineral density may be appropriate. FUTURE SCAN RECOMMENDATION: People with diagnosed cases of osteoporosis or at high risk for fracture should have regular bone mineral density tests. For patients eligible for Medicare, routine testing is allowed once every 2 years. The testing frequency can be increased to one year for patients who have rapidly progressing disease, those who are receiving or discontinuing medical therapy to restore bone mass, or have additional risk factors. Electronically signed by: Silvia Kaur MD 02/15/2024 12:33 PM EDT
== END 2024-02-14 09:04 | disposition home or self-care (01) ==
LOC: HO.MAMMO 09:03
PROVIDERS: PCP Internal Medicine; Visit Provider Internal Medicine
DX: M81.0 Age-related osteoporosis without current pathological fracture (principal); S32.020D Wedge compression fracture of second lumbar vertebra, subsequent encounter for fracture with routine healing
CPT/HCPCS: 77080

== ENCOUNTER 2024-03-13 18:57 | Outpatient (REF) | payer OTHER, SELFPAY ==
--- NOTE | ~2024-03-13 | MR_ITS ---
EXAMINATION: MR BRAIN WITHOUT CONTRAST CLINICAL INFORMATION: Convulsions. COMPARISON: Brain MRI from 05/02/2017. TECHNIQUE: MRI of the brain was obtained using routine sequences without contrast. FINDINGS: No focal restricted diffusion is demonstrated to suggest acute or subacute cerebral ischemia. No evidence of acute or chronic hemorrhagic products on heme-sensitive imaging. Small chronic lacunar infarcts of the cerebellum. Scattered periventricular and deep white matter T2 FLAIR hyperintensities consistent with mild underlying microangiopathy. Proportional prominence of the ventricles and sulcal spaces without evidence of obstructive hydrocephalus. No abnormal mass effect. No midline shift. The hippocampi are symmetric in size, contour, and signal intensity. The temporal horns appear symmetric. Normal appearance of the pituitary gland. Normal positioning of the cerebellar tonsils. Normal arterial and venous vascular flow voids are present. Normal, homogeneous marrow signal. Mild mucosal thickening of the paranasal sinuses. No signal abnormalities within the mastoids. MR/MR head/brain wo con IMPRESSION: 1. No acute intracranial abnormalities. 2. Mild underlying microangiopathy and generalized cerebral volume loss. Small chronic lacunar infarcts of the cerebellum. 3. No additional MRI abnormalities to explain the patient's symptoms. Electronically signed by: Kartik Toure DO 04/03/2024 10:11 AM [facility]
== END 2024-03-13 18:58 | disposition home or self-care (01) ==
LOC: HO.MRI 18:57
PROVIDERS: PCP Internal Medicine
DX: S09.90XA Unspecified injury of head, initial encounter (principal); R42 Dizziness and giddiness; R56.9 Unspecified convulsions
CPT/HCPCS: 70551

== ENCOUNTER 2024-04-02 10:13 | Outpatient (REF) | payer OTHER, SELFPAY ==
--- NOTE | 2024-04-02 10:15 | EEG_ITS ---
FINDINGS: The waking background activity consists of a well defined, moderate voltage 8 to 9 hertz posterior alpha frequency that is seen symmetrically and attenuates well with eye opening. Occasional left temporal slowing and some sharp activity is noted. Photic stimulation and hyperventilation are without activation. IMPRESSION: This EEG is considered mildly abnormal due to intermittent left temporal slowing and occasional sharp discharges that suggest a focus of cerebral irritability in the left temporal region. Clinical correlation is suggested. MD KELECHI Stringer/LETTY / [id number]
== END 2024-04-02 10:14 | disposition home or self-care (01) ==
LOC: HO.NEURO 10:13
PROVIDERS: PCP Internal Medicine
DX: S09.90XA Unspecified injury of head, initial encounter (principal); R42 Dizziness and giddiness; R56.9 Unspecified convulsions
CPT/HCPCS: 95816

== ENCOUNTER 2024-04-03 09:08 | Outpatient (REF) | payer OTHER, SELFPAY ==
--- NOTE | ~2024-04-03 | FL_ITS ---
EXAMINATION: XR FLUOROSCOPY UPPER GI WITH AIR CLINICAL INFORMATION: Dysphagia COMPARISON: None TECHNIQUE: Fluoroscopic air contrast upper GI examination was performed utilizing standard techniques with thin and thick barium and effervescent granules. Numerous spot images were obtained. FINDINGS: Lateral cine images of the oropharynx and hypopharynx demonstrate a delayed swallow mechanism with normal epiglottic inversion and soft palate elevation. There is excessive pooling of contrast in the vallecula and piriform sinuses. On the fourth swallow, there was gross, silent tracheal aspiration present. No nasopharyngeal reflux present. Hypopharyngeal structures appear normal without evidence of mass or diverticulum. There is mild cricopharyngeal achalasia present. Dual and single contrast images of the esophagus demonstrate a normal caliber and contour. There is felinization of the mid esophageal mucosa at level of the aortic arch. No evidence of stricture, mass, or ulcerations identified. Evaluation of esophageal peristalsis is limited due to inability to administer additional contrast due to aspiration. No evidence of hiatus hernia identified. Gastroesophageal reflux is seen up to level the aortic arch. Dual contrast and single contrast images of the stomach demonstrated a normal contour. There are multiple foci of contrast pooling in the body and fundus the stomach that likely represents mucosal ulcerations. No masses are present. Contrast freely passed into the gastric antrum and duodenal bulb without delay. Single and air-contrast images of the duodenal bulb demonstrate no abnormality. The duodenal sweep has a normal appearance, course, and mucosal fold appearance. The imaged proximal jejunum has a normal fold pattern and caliber. FLUOROSCOPY TIME: 3 minutes 40 seconds Number of Spot Images: 5 Number of Cine: 13 DOSE AREA PRODUCT: 1611 uGy-m2 (microgray-meter squared) FL/FL barium swallow with air IMPRESSION: 1. Delayed swallow mechanism with excessive pooling of contrast in the vallecula and piriform sinuses. 2. Tracheal aspiration was observed on the fourth swallow of thick barium. No additional contrast was administered after this event. 3. Mild cricopharyngeal achalasia. 4. Felinization of the mid esophageal mucosa at the level the aortic arch. This is a benign finding associated with chronic gastroesophageal reflux. 5. Limited evaluation of esophageal peristalsis/motility due to inability to administer additional contrast due to aspiration. 6. Moderate gastroesophageal reflux. 7. Multiple foci of contrast pooling in the body and fundus of the stomach that likely represent mucosal ulcerations. Recommend correlation with EGD. This procedure was performed by Efren De Leon PA-C, and supervised by Dr. Jc Electronically signed by: Mahamed Jc MD 04/03/2024 05:42 PM [facility]
== END 2024-04-03 09:09 | disposition home or self-care (01) ==
LOC: HO.XRAY 09:08
PROVIDERS: PCP Internal Medicine; Visit Provider Internal Medicine
DX: R13.10 Dysphagia, unspecified (principal)
CPT/HCPCS: 74221

== ENCOUNTER → 2024-04-03 09:10 | Outpatient (BNV) | payer OTHER, SELFPAY | PROVIDERS: PCP Internal Medicine; Visit Provider Physician Assistant Surgical | DX: K21.9 Gastro-esophageal reflux disease without esophagitis (principal); T17 Foreign body in respiratory tract | CPT/HCPCS: 74246 ==

== ENCOUNTER 2024-05-03 12:49 | Outpatient (AMB) | payer OTHER, SELFPAY ==
[2024-05-03 12:53] VITALS: BP 120/70; PULSE 88; O2SAT 99; BMI 21.0
--- NOTE | 2024-05-03 12:53 | MHC.PC.OV ---
Vital Signs 05/03/24 12:53 Height 6 ft 2 in Weight 163 lb 6 oz BMI 21.0 BP 120/70 Blood Pressure Location Lt brachial Position Sitting Pulse 88 Pulse Source Pulse Oximeter Pulse Oximetry (%) 99 Oxygen Delivery Method Room Air Intake Visit Reasons: fall dizziness Neuropsychiatrist Required: No Accompanied by: Self / Same As Patient Allergies oxycodone [From PERCOCET] Allergy (Unknown, Verified 05/03/24 12:54) ITCHY THROAT, FEELS BAD Tobacco use date assessed: 05/03/24 Fall risk assessment: 2 + Falls in past year Last assessed Fall Risk: 05/03/24 Dental Screening Dental Screen Date: 05/03/24 Did you have a dental visit in the last 12 months?: Yes Did you have a dental problem in the last 6 months where you did not have access to dental care?: No Was dental information given to patient?: Patient has dentist HPI fall dizziness HPI Details The patient is a 69-year-old male presenting with swallowing difficulties. This issue has been noticeable following a recent fall injury where he sustained eight fractures in his back and a head injury. Post-trauma, he experienced some dizziness, which has since resolved, but reports of a persistent swallowing difficulty were noted. An evaluation by gastroenterology detected food and acid reflux entering the breathing tube. An assessment of the stomach revealed ulcerations, for which the patient is currently taking omeprazole. Despite not experiencing heartburn, the reflux disease necessitates modifications such as prolonged upright posture following meals and avoiding meals close to bedtime. The patient was also informed of small strokes detected in a previous evaluation, likely age-related. He underwent an EEG which showed no significant findings relative to potential seizure activity. Additionally, osteopenia was identified, which the patient attributes as common with aging. Recent imaging studies indicate no significant acute concerns. The patient reports nocturia, urinating frequently during the night without daytime frequency, and associates this with stress from a family situation and ongoing remodeling at home. Past evaluations in 2018 indicated significant prostate enlargement. The patient's weight has decreased by 30 pounds post-injury, yet he maintains stable weight currently and denies significant appetite changes. He is functional and continues working with maintained energy levels. [facility] Medical History (Updated 05/03/24 @ 13:35 by Abby Kothari MD) Head trauma History of fall Impaired glucose tolerance Hearing loss in left ear Facial basal cell cancer Plantar fasciitis Hypertension Vitamin D deficiency BPH (benign prostatic hyperplasia) Hypercholesterolemia Surgical History History of left inguinal hernia repair (09/22/22) History of inguinal hernia repair, bilateral History of strabismus surgery History of arthroscopic knee surgery H/O umbilical hernia repair Social History Housing: House Alcohol intake: current Comment: 3x a week 1-2 glasses of wine Patient Tobacco Use Status: Former Tobacco user Years Smoked: [id number] 4-5 years e-Cigarette/Vaping Use: Never Used Second Hand Smoke Exposure: No service: No Current occupational status: retired Cognitive needs: No Hearing needs: No Vision needs: Yes Questionnaire PHQ-9 Over the last 2 weeks, how often have you been bothered by any of the following problems? 1. Little interest or pleasure in doing things: not at all 2. Feeling down, depressed, or hopeless: not at all 3. Trouble falling or staying asleep, or sleeping too much: not at all 4. Feeling tired or having little energy: not at all 5. Poor appetite or overeating: not at all 6. Feeling bad about yourself - or that you are a failure or have let yourself or your family down: not at all 7. Trouble concentrating on things, such as reading the newspaper or watching television: not at all 8. Moving or speaking so slowly that other people could have noticed. Or the opposite - being so fidgety or restless that you have been moving around a lot more than usual: not at all 9. Thoughts that you would be better off or of hurting yourself in some way: not at all Total score: 0 Depression Screening Interpretation: Negative Depression Screening Done: Yes Source: Developed by Drs. Neil Rendon, Chayo Sanots, Greg Lopez and colleagues, with an educational benito from [employer]. Thrive Questionnaire Date Thrive assessed: 05/03/24 I am a: Patient What is your living situation today?: I have a steady place to live Within the past 12 months, did the food you bought not last and you didn't have the money to get more?: Never true Within the past 12 months, did you worry whether your food would run out before you got money to buy more?: Never true Do you have trouble paying for medicines?: No Do you have trouble getting transportation to medical appointments?: No Do you have trouble paying your heating and electricity bill?: No Do you have trouble taking care of your child, family member or friend?: No Do you have trouble with day-to-day activities such as bathing, preparing meals, shopping, managing finances, etc.?: No Are you currently unemployed and looking for a job?: No Are you interested in more education?: No Please select the resources that you would like help with: None Currently or been in a relationship where the following occur: No concerns reported THRIVE Score: 0 AUDIT C Alcohol Use Questionnaire (AUDIT-C) 1. How often do you have a drink containing alcohol?: Monthly or less 2. How many drinks containing alcohol do you have on a typical day when you are drinking?: 1 or 2 3. How often do you have six or more drinks on one occasion?: Less than monthly Total Score: 2 NURY-7 AMB Questionnaire NURY-7 Date NURY - 7 assessed: 05/03/24 Feeling nervous, anxious, or on edge: 0 = Not at all Not being able to stop or control worryin = Not at all Worrying too much about different things: 0 = Not at all Trouble relaxin = Not at all Being so restless that it is hard to sit still: 0 = Not at all Becoming easily annoyed or irritable: 0 = Not at all Feeling afraid as if something awful might happen: 0 = Not at all Total NURY-7 score (0-4 normal; 5-9 mild; 10-14 moderate; 15-21 severe): 0 Source: Developed by Drs. Neil Rendon, Chayo Santos, Greg Lopez and colleagues, with an educational benito from [employer]. Physical exam (Primary Care) Vital Signs: Last Vital Signs Pulse 88 05/03/24 12:53 BP 120/70 05/03/24 12:53 Pulse Ox 99 05/03/24 12:53 Oxygen Delivery Method Room Air 05/03/24 12:53 BMI result Body Mass Index 21.0 Tobacco/Smoking Status: Tobacco use Status Tobacco use date assessed 05/03/24 05/03/24 13:00 Patient Tobacco Use Status Former Tobacco user 05/03/24 12:54 Tobacco use type 05/11/21 14:07 e-Cigarette/Vaping Use Never Used 05/03/24 12:54 PHQ-9: PHQ-9 Score PHQ-9: Total score 0 05/03/24 13:45 Depression Screening Interpretation: Negative Thrive Assessment: Date of Thrive Assessment Date Thrive assessed 05/03/24 05/03/24 13:00 Currently or been in a relationship where the following occur: No concerns reported Const General: alert; No acute distress Eyes Conjunctivae: conjunctivae normal Resp Auscultation: clear to auscultation bilaterally Cardio Rate: regular rate Rhythm: regular rhythm GI Inspection: Yes normal to inspection Extrem General: Yes normal to inspection and No edema Office Procedures Flu Questionnaire Does the patient have a severe egg allergy?: No Does the patient have severe life threatening allergies?: No Does the patient have a fever or illness today?: No Has the patient ever had Guillain-[place] Syndrome?: No Has the patient ever had any past reaction to a flu shot?: No Immunizations Fluarix Triv [id number] (PF) 45 mcg (15 mcg x 3)/0.5 mL IM syringe Performing Provider: Abby Kothari MD [facility] Administered by: GILBERTO Cuenca on 05/03/24 13:45 Dose Route Admin Location Dispensed Lot Number Expiration Date NDC [employer] 0.5 mL IM Left Deltoid 0.5 mL [id number] 10/21/24 09048-306-[address] [facility] VIS Given Date VIS Provided VIS Publication Date 05/03/24 Single Vaccine 20 Eligibility Eligibility Date Funding Source Not [facility] Eligible 05/03/24 Private Coding Level of Care Code Est Pt Level 4 (54574) Complex EM visit Add On G2211 Diagnoses Gastric ulcer K25.9 Head trauma S09.90XA Compression fracture of L2 vertebra with routine healing, subsequent encounter S32.020D Encounter type: subsequent encounter Fracture healing: with routine healing Lumbar vertebra fracture level: L2 Hypercholesterolemia E78.00 Hypertension I10 BPH (benign prostatic hyperplasia) N40.0 Impaired glucose tolerance R73.02 Assessment & Plan Assessment & Plan (1) Gastric ulcer: Code(s): K25.9 - Gastric ulcer, unspecified as acute or chronic, without hemorrhage or perforation Category: Medical (2) Head trauma: Comment: 09/2023 Code(s): S09.90XA - Unspecified injury of head, initial encounter Category: Medical (3) Compression fracture of lumbar vertebra: Comment: October 18 2023 L2 and L4 from fall from stairs Code(s): S32.000A - Wedge compression fracture of unspecified lumbar vertebra, initial encounter for closed fracture Category: Medical Qualifiers: Encounter type: subsequent encounter Fracture healing: with routine healing Lumbar vertebra fracture level: L2 Qualified Code(s): S32.020D - Wedge compression fracture of second lumbar vertebra, subsequent encounter for fracture with routine healing (4) Hypercholesterolemia: Code(s): E78.00 - Pure hypercholesterolemia, unspecified Category: Medical (5) Hypertension: Code(s): I10 - Essential (primary) hypertension Category: Medical (6) BPH (benign prostatic hyperplasia): Comment: 2017 cc Code(s): N40.0 - Benign prostatic hyperplasia without lower urinary tract symptoms Category: Medical (7) Impaired glucose tolerance: Code(s): R73.02 - Impaired glucose tolerance (oral) Category: Medical Plan - Continue omeprazole therapy to manage gastric ulcerations and suppress gastric acid production. - Encourage lifestyle modifications to address gastroesophageal reflux disease, including meal timing and head elevation during sleep. - Scheduled follow-up with gastroenterology to evaluate the efficacy of treatment and reassess the swallowing function. - Order ultrasound of the prostate to evaluate current size and potential urine retention. - Monitor nocturia symptoms; consider further evaluation if symptoms persist or worsen. - Continue monitoring for cerebrovascular changes; educate patient on symptoms of stroke. - Promote continued physical therapy and activity adjustments post-injury to support recovery and prevent further weight loss. - Administer flu vaccination and encourage seasonal vaccinations. Orders: Orders Influenza [id number] Immunization Today Z23 - Encounter for immunization US bladder Today N40.0 - Benign prostatic hyperplasia without lower urinary tract symptoms Medications: Refilled lisinopril 10 mg PO DAILY 90 tabs 3RF I10 - Essential (primary) hypertension
== END 2024-05-03 13:48 | disposition home or self-care (01) ==
PROVIDERS: PCP Internal Medicine; Visit Provider Internal Medicine
DX: K25.9 Gastric ulcer, unspecified as acute or chronic, without hemorrhage or perforation (principal); S09.90XA Unspecified injury of head, initial encounter; S32.020D Wedge compression fracture of second lumbar vertebra, subsequent encounter for fracture with routine healing; E78.00 Pure hypercholesterolemia, unspecified; I10 Essential (primary) hypertension; N40.0 Benign prostatic hyperplasia without lower urinary tract symptoms; R73.02 Impaired glucose tolerance (oral); Z23 Encounter for immunization

== ENCOUNTER → 2024-05-03 12:49 | Outpatient (BNVA) | payer OTHER, SELFPAY | PROVIDERS: PCP Internal Medicine; Visit Provider Internal Medicine | DX: K25.9 Gastric ulcer, unspecified as acute or chronic, without hemorrhage or perforation (principal); S09.90XD Unspecified injury of head, subsequent encounter; S32.020D Wedge compression fracture of second lumbar vertebra, subsequent encounter for fracture with routine healing; E78.00 Pure hypercholesterolemia, unspecified; I10 Essential (primary) hypertension; Z23 Encounter for immunization; N40.0 Benign prostatic hyperplasia without lower urinary tract symptoms; R73.02 Impaired glucose tolerance (oral); Z79.899 Other long term (current) drug therapy | CPT/HCPCS: 90471; 90656; 96127 ==

== ENCOUNTER 2024-05-14 13:45 | Outpatient (REF) | payer OTHER, SELFPAY ==
--- NOTE | ~2024-05-14 | US_ITS ---
CLINICAL HISTORY: N40.0 - Benign prostatic hyperplasia without lower urinary tract symptoms US Urinary Bladder Comparison: US - URINARY BLADDER [id number] - 09/11/17 15:52 EDT Findings: Prevoid volume: 379 mL. Postvoid volume: 207 mL Ureteral jets are visualized bilaterally. No bladder wall thickening. No bladder calculi. Prostate gland measures 3.9 x 4.8 x 5.0 cm in size. This gives a volume of 48 mL. IMPRESSION: Large postvoid residual. This document has been electronically signed by: Elmo Espinal MD on 05/15/2024 05:55:15
== END 2024-05-14 13:46 | disposition home or self-care (01) ==
LOC: HO.US 13:45
PROVIDERS: PCP Internal Medicine; Visit Provider Internal Medicine
DX: N40.0 Benign prostatic hyperplasia without lower urinary tract symptoms (principal)
CPT/HCPCS: 76857

== ENCOUNTER → 2024-05-14 13:50 | Outpatient (BNV) | payer OTHER, SELFPAY | PROVIDERS: PCP Internal Medicine; Visit Provider Radiology Diagnostic Radiology | DX: N40.0 Benign prostatic hyperplasia without lower urinary tract symptoms (principal) | CPT/HCPCS: 76857 ==

== ENCOUNTER 2024-07-04 10:02 | Outpatient (AMB) | payer OTHER, SELFPAY ==
--- NOTE | 2024-07-04 10:06 | A.OFFPC_ITS ---
Vital Signs 07/04/24 10:07 Height 6 ft 2 in Weight 160 lb BMI 20.5 BP 112/68 Blood Pressure Location Lt brachial Position Sitting Pulse 83 Pulse Source Pulse Oximeter Pulse Oximetry (%) 98 Oxygen Delivery Method Room Air Intake Visit Reasons: PE Allergies oxycodone [From PERCOCET] Allergy (Unknown, Verified 07/04/24 10:07) ITCHY THROAT, FEELS BAD Medication List - Last Reconciled 07/04/24 by Abby Kothari MD finasteride 5 mg PO DAILY folic acid 1 mg PO DAILY gabapentin 300 mg PO BEDTIME hydrochlorothiazide 12.5 mg PO QAM levetiracetam 1,000 mg PO BID lisinopril 10 mg PO DAILY omeprazole 20 mg PO DAILY tamsulosin (Flomax) 0.4 mg PO DAILY thiamine HCl (vitamin B1) 100 mg PO DAILY Tobacco use date assessed: 05/03/24 Fall risk assessment: No Falls in past year Last assessed Fall Risk: 07/04/24 Dental Screening Dental Screen Date: 05/03/24 HPI PE HPI Details seeing Neurology and placed on keppra and advised to get a sleep study- Aminah English in [place]. 69-year-old male with BPH hypercholesterolemia hypertension impaired glucose tolerance recurrent inguinal hernia had a recent fall sustaining rib fractures pelvic fracture compression of the lumbar vertebra. Patient recently was in the hospital for seizures . Patient did have the EEG results showing temporal seizure activity. Has been placed on Keppra. Patient is here for physical exam [facility] Medical History (Updated 07/04/24 @ 17:49 by Abby Kothari MD) CKD (chronic kidney disease) Head trauma History of fall Impaired glucose tolerance Hearing loss in left ear Facial basal cell cancer Plantar fasciitis Hypertension Vitamin D deficiency BPH (benign prostatic hyperplasia) Hypercholesterolemia Surgical History History of left inguinal hernia repair (09/22/22) History of inguinal hernia repair, bilateral History of strabismus surgery History of arthroscopic knee surgery H/O umbilical hernia repair Social History (Updated 07/04/24 @ 10:46 by Abby Kothari MD) Housing: House Alcohol intake: current Comment: 3x a week 1-2 glasses of wine, Patient Tobacco Use Status: Former Tobacco user Tobacco use type: Cigarette Years Smoked: [id number] 4-5 years e-Cigarette/Vaping Use: Never Used Second Hand Smoke Exposure: No service: No Current occupational status: retired Cognitive needs: No Hearing needs: No Vision needs: Yes Questionnaire PHQ-9 Over the last 2 weeks, how often have you been bothered by any of the following problems? 1. Little interest or pleasure in doing things: not at all 2. Feeling down, depressed, or hopeless: not at all 3. Trouble falling or staying asleep, or sleeping too much: several days 4. Feeling tired or having little energy: several days 5. Poor appetite or overeating: not at all 6. Feeling bad about yourself - or that you are a failure or have let yourself or your family down: not at all 7. Trouble concentrating on things, such as reading the newspaper or watching television: not at all 8. Moving or speaking so slowly that other people could have noticed. Or the opposite - being so fidgety or restless that you have been moving around a lot more than usual: not at all 9. Thoughts that you would be better off or of hurting yourself in some way: not at all Total score: 2 Depression Screening Interpretation: Positive Depression Screening Done: Yes 71074 - PHQ-9 Billing: Yes Source: Developed by Drs. Neil Rendon, Chayo Santos, Greg Lopez and colleagues, with an educational benito from [employer]. Thrive Questionnaire Date Thrive assessed: 07/04/24 I am a: Patient What is your living situation today?: I have a steady place to live Within the past 12 months, did the food you bought not last and you didn't have the money to get more?: Never true Within the past 12 months, did you worry whether your food would run out before you got money to buy more?: Never true Do you have trouble paying for medicines?: No Do you have trouble getting transportation to medical appointments?: No Do you have trouble paying your heating and electricity bill?: No Do you have trouble taking care of your child, family member or friend?: No Do you have trouble with day-to-day activities such as bathing, preparing meals, shopping, managing finances, etc.?: No Are you currently unemployed and looking for a job?: No Are you interested in more education?: No Please select the resources that you would like help with: None Currently or been in a relationship where the following occur: No concerns reported THRIVE Score: 0 AUDIT C Alcohol Use Questionnaire (AUDIT-C) 1. How often do you have a drink containing alcohol?: 2-4 times a month Total Score: 2 NURY-7 AMB Questionnaire NURY-7 Date NURY - 7 assessed: 07/04/24 Feeling nervous, anxious, or on edge: 0 = Not at all Not being able to stop or control worryin = Not at all Worrying too much about different things: 0 = Not at all Trouble relaxin = Not at all Being so restless that it is hard to sit still: 0 = Not at all Becoming easily annoyed or irritable: 0 = Not at all Feeling afraid as if something awful might happen: 0 = Not at all Total NURY-7 score (0-4 normal; 5-9 mild; 10-14 moderate; 15-21 severe): 0 Source: Developed by Drs. Neil Rendon, Chayo Santos, Greg Lopez and colleagues, with an educational benito from [employer]. NURY-7 Assessment Billing NURY-7 Assessment Tool: NURY-7 Assessment 47455 Review of Systems Const Denies poor appetite and Denies weakness Eyes Denies no additional complaints ENT Reports Normal hearing present, Denies dizziness, Denies nasal congestion, Denies tinnitus and Denies sore throat Card Denies chest pain, Denies syncope, Denies rapid heart rate and Denies dyspnea Resp Denies cough and Denies dyspnea GI Denies change in stool character, Reports constipation, Denies diarrhea, Denies nausea and Denies vomiting Denies dysuria and Denies urinary frequency Neuro Reports Normal hearing present, Denies confusion, Denies dizziness, Denies syncope and Denies weakness Psych Denies confusion Physical exam (Primary Care) Vital Signs: Last Vital Signs Pulse 83 07/04/24 10:07 BP 112/68 07/04/24 10:07 Pulse Ox 98 07/04/24 10:07 Oxygen Delivery Method Room Air 07/04/24 10:07 BMI result Body Mass Index 20.5 Tobacco/Smoking Status: Tobacco use Status Tobacco use date assessed 05/03/24 07/04/24 10:08 Patient Tobacco Use Status Former Tobacco user 07/04/24 10:46 Tobacco use type Cigarette 07/04/24 10:46 e-Cigarette/Vaping Use Never Used 07/04/24 10:46 PHQ-9: PHQ-9 Score PHQ-9: Total score 2 07/04/24 10:45 Depression Screening Interpretation: Positive Thrive Assessment: Date of Thrive Assessment Date Thrive assessed 07/04/24 07/04/24 10:08 Currently or been in a relationship where the following occur: No concerns reported Const General: No confusion Orientation/consciousness: No confusion HENMT Head: Yes normocephalic Ears: external ears normal and TM's normal bilaterally Face and sinus: Yes normal facial exam Mouth: moist mucous membranes Throat: Yes tonsils normal Eyes Conjunctivae: conjunctivae normal Pupils: Equal, round and reactive pupils present and Pupil accommodation reflex normal Direct Ophthalmoscopy: normal light reflex Neck Neck: No lymphadenopathy Thyroid: Thyroid normal Chest Chest palpation & inspection: normal inspection of the chest Resp Effort & Inspection: normal respiratory effort and no audible wheezes Auscultation: clear to auscultation bilaterally, no crackles, no wheezes and lung sounds not diminished Cardio Rate: regular rate Rhythm: regular rhythm Peripheral pulses: radial pulses present and dorsalis pedis present GI Other: colon test 07/2024 seeing GI Palpation (GI): no masses Auscultation: normal bowel sounds and normoactive bowel sounds Rectal Exam - Male: Yes deferred Other: R inguinal mass Skin General skin exam: no rashes or lesions noted Rashes: no rashes Neuro General: No confusion Cranial nerves: Yes Equal, round and reactive pupils present and Yes Normal hearing present Cognition (Neuro): normal cognition Gait exam (Neuro): Normal gait present Motor exam (neuro): 5/5 motor strength present throughout Deep tendon reflexes (DTR's): Right brachioradialis reflex intensity grade: 2+, Left brachioradialis reflex intensity grade: 2+, Right patellar reflex intensity grade: 2+ and Left patellar reflex intensity grade: 2+ Extrem General: No edema Coding Level of Care Code Est Pt Prev Care >65y(04027) Diagnoses Annual physical exam Z00.00 Seizure R56.9 Impaired glucose tolerance R73.02 Benign prostatic hyperplasia with urinary frequency N40.1; R35.0 Lower urinary tract symptom presence: symptoms present Lower urinary tract symptom detail: urinary frequency Hypercholesterolemia E78.00 Hypertension I10 Colon cancer screening Z12.11 Renal insufficiency N28.9 Additional Codes NURY-7 Assessment Billing - NURY-7 Assessment Tool: NURY-7 Assessment 44059 ([id number]) PHQ-9 - 93304 - PHQ-9 Billing: Yes ([id number]) Assessment & Plan Assessment & Plan (1) Annual physical exam: Code(s): Z00.00 - Encounter for general adult medical examination without abnormal findings Category: Medical Plan: Patient is advised to eat healthy, keep well hydrated, keep active and have adequate sleep. (2) Seizure: Comment: 04/2024 Code(s): R56.9 - Unspecified convulsions Category: Medical Plan: Patient was recently admitted for seizures and has been placed on Keppra. Neuroseeing and will have the Sleep study (3) Impaired glucose tolerance: Code(s): R73.02 - Impaired glucose tolerance (oral) Category: Medical Plan: Decrease the amount of carbohydrate intake, pasta, bread, rice and potatoes are all sugar and that is aside from all the sweet stuff, remember that fruits are good but they are Sweet also. (4) BPH (benign prostatic hyperplasia): Comment: 2017 77 cc Code(s): N40.0 - Benign prostatic hyperplasia without lower urinary tract symptoms Category: Medical Qualifiers: Lower urinary tract symptom presence: symptoms present Lower urinary tract symptom detail: urinary frequency Qualified Code(s): N40.1 - Benign prostatic hyperplasia with lower urinary tract symptoms; R35.0 - Frequency of micturition Plan: Patient on finasteride 5 mg once a day tamsulosin once a day recent ultrasound showing urinary retention with prostate enlargement that 48 cc (5) Hypercholesterolemia: Code(s): E78.00 - Pure hypercholesterolemia, unspecified Category: Medical Plan: Avoid fried foods, chicken skin, eggs, butter margarine, pastries and meat. Be it pork or beef they have a lot of cholesterol LDL goal of less than 130 and triglyceride of less than 150 (6) Hypertension: Code(s): I10 - Essential (primary) hypertension Category: Medical Plan: Continue with blood pressure medication. Decrease salt intake and exercise on hydrochlorothiazide 12.5 mg once a day lisinopril 10 mg once a day (7) Colon cancer screening: Code(s): Z12.11 - Encounter for screening for malignant neoplasm of colon Category: Medical Plan: Patient is reminded about colonoscopy or Cologuard testing (8) Renal insufficiency: Code(s): N28.9 - Disorder of kidney and ureter, unspecified Category: Medical Plan: Keep well hydrated, avoid NSAIDs and will continue to monitor Orders: Orders Complete Blood Count Auto Diff Today R73.02 - Impaired glucose tolerance (oral) Comprehensive Met. Panel Today R73.02 - Impaired glucose tolerance (oral) Free T4 (Free Thyroxine) Today R73.02 - Impaired glucose tolerance (oral) Prostate Specific Antigen Scr Today N28.9 - Disorder of kidney and ureter, unspecified Thyroid Stimulating Hormone Today R73.02 - Impaired glucose tolerance (oral) Vitamin B12 and Folate Today R73.02 - Impaired glucose tolerance (oral) Lipid Panel Today E78.00 - Pure hypercholesterolemia, unspecified, R73.02 - Impaired glucose tolerance (oral) Hemoglobin A1c Today R73.02 - Impaired glucose tolerance (oral) Medications: New tramadol 50 mg PO BEDTIME 30 tabs 0RF S32.020D - Wedge compression fracture of second lumbar vertebra, subsequent encounter for fracture with routine healing
[2024-07-04 10:07] VITALS: BP 112/68; PULSE 83; O2SAT 98; BMI 20.5
== END 2024-07-04 11:13 | disposition home or self-care (01) ==
LOC: HO.HMCH 10:03
PROVIDERS: PCP Internal Medicine; Visit Provider Internal Medicine
DX: Z00.00 Encounter for general adult medical examination without abnormal findings (principal); R56.9 Unspecified convulsions; R73.02 Impaired glucose tolerance (oral); N40.1 Benign prostatic hyperplasia with lower urinary tract symptoms; R35.0 Frequency of micturition; E78.00 Pure hypercholesterolemia, unspecified; I10 Essential (primary) hypertension; Z12.11 Encounter for screening for malignant neoplasm of colon; N28.9 Disorder of kidney and ureter, unspecified

== ENCOUNTER → 2024-07-04 10:02 | Outpatient (BNVA) | payer OTHER, SELFPAY | PROVIDERS: PCP Internal Medicine; Visit Provider Internal Medicine | DX: Z00.00 Encounter for general adult medical examination without abnormal findings (principal); R56.9 Unspecified convulsions; R73.02 Impaired glucose tolerance (oral); N40.1 Benign prostatic hyperplasia with lower urinary tract symptoms; R35.0 Frequency of micturition; E78.00 Pure hypercholesterolemia, unspecified; I10 Essential (primary) hypertension; N28.9 Disorder of kidney and ureter, unspecified; Z79.899 Other long term (current) drug therapy | CPT/HCPCS: 96127 ==

== ENCOUNTER 2024-07-11 15:07 | Outpatient (AMB) | payer OTHER, SELFPAY ==
--- NOTE | 2024-07-11 15:17 | A.OFFVIS_ITS ---
Intake Visit Reasons: BPH Intake Note: New Patient presents for initial visit for BPH Urology Medications: finasteride, tamsulosin Blood Thinner: none PVR: 20ml's Rn Vascular Required: No Accompanied by: Self / Same As Patient Allergies oxycodone [From PERCOCET] Allergy (Unknown, Verified 07/11/24 15:53) ITCHY THROAT, FEELS BAD Medication List - Last Reconciled 07/11/24 by KYLEE Duenas finasteride 5 mg PO DAILY folic acid 1 mg PO DAILY hydrochlorothiazide 12.5 mg PO QAM levetiracetam 1,000 mg PO BID lisinopril 10 mg PO DAILY omeprazole 20 mg PO DAILY tamsulosin (Flomax) 0.4 mg PO DAILY thiamine HCl (vitamin B1) 100 mg PO DAILY tramadol 50 mg PO BEDTIME HPI Comments Details: Ko Lilly is a very pleasant 69-year-old male patient of Dr. MORENO. He has a past medical history of chronic kidney disease, head trauma, facial basal cell cancer, plantar fasciitis, hypertension, vitamin-D deficiency, BPH, and hypercholesteremia. He presents to the office today as a new patient for ongoing lower urinary tract symptoms. In discussion with the patient today he reports having followed up with a urologist many years ago however does not recall providers name and has since been on Flomax and finasteride. He reports most recently over the last 6 months to a year he has noted increased episodes of nocturia up to 5 times per night. He reports having followed up with his PCP and a bladder ultrasound was ordered and recommendations were made for urology referral. These results were communicated and reviewed with the patient today. Pre void bladder volume is approximately 380 mL. Postvoid bladder volume was approximately 210 mL. No bladder wall thickening or bladder calculi noted. Prostate gland is mildly enlarged measuring 48 mL. We discussed incomplete bladder emptying during bladder ultrasound however PVR in office today 20 mL. In office urinalysis results reviewed with the patient today. He reports noting episodes of feeling of incomplete bladder emptying very. He otherwise denies frequency, incontinence, hematuria, dysuria, foul smelling urine, changes to urinary stream, flank pain, fever, and or chills. We discussed potential causes of lower urinary tract symptoms patient was experiencing as well as further treatment options and risks and benefits of these treatment options. In review of patient's chart it appears PSAs are as follows: PSA: 06/15 1.5, 06/16 1.4, 06/17 1.4, 01/15 1.4 Plan The patient will transition to a different alpha-alyse while continuing finasteride. We discussed potential near future cystoscopy if symptoms persist and or worsen. PSA levels will continue under regular monitoring to assess ongoing medication effectiveness. Follow-up in a few weeks will reassess symptom progression and guide further management. Discussions regarding cystoscopy will be revisited based on patient response to the modified treatment protocol. Patient was informed and verbally consented to the use of an ambient scribe for clinic note documentation during this visit. Discussion Notes I discussed with the patient the likely diagnosis of progression in symptomatology related to Benign Prostatic Hyperplasia. We reviewed his medication history, recognizing decreased response to tamsulosin, hence proposing a more potent alpha-alyse. Detailed procedural discussions covered the potential for surgical consideration via cystoscopy if pharmaceutical options remain insufficient. Risks and benefits of surgical intervention were pitched, emphasizing anticipated relief longevity. It was stressed no immediate need for surgery yet. A clear plan was set for reassessment post-medication change. The patient consented to the interim plan with understanding and readiness for follow-up evaluation. [facility] Medical History CKD (chronic kidney disease) Head trauma History of fall Impaired glucose tolerance Hearing loss in left ear Facial basal cell cancer Plantar fasciitis Hypertension Vitamin D deficiency BPH (benign prostatic hyperplasia) Hypercholesterolemia Surgical History History of left inguinal hernia repair (09/22/22) History of inguinal hernia repair, bilateral History of strabismus surgery History of arthroscopic knee surgery H/O umbilical hernia repair Social History (Updated 07/04/24 @ 10:46 by Abby Moreno MD) Housing: House Alcohol intake: current Comment: 3x a week 1-2 glasses of wine, Patient Tobacco Use Status: Former Tobacco user Tobacco use type: Cigarette Years Smoked: [id number] 4-5 years e-Cigarette/Vaping Use: Never Used Second Hand Smoke Exposure: No service: No Current occupational status: retired Cognitive needs: No Hearing needs: No Vision needs: Yes Review of Systems Const All systems reviewed & are unremarkable except as noted in HPI and below Physical Exam Const General: cooperative, healthy appearing, comfortable, no acute distress, well developed, alert and awake Orientation/consciousness: patient oriented x3 Limitations: no limitations HEENT Head: Yes normal to inspection, Yes normocephalic and Yes atraumatic Ears: hearing grossly normal bilaterally Eyes General: appearance normal, both eyes and all related structures Neck Neck: Yes normal visual inspection and Yes trachea midline Chest Chest palpation & inspection: normal inspection of the chest Resp Effort & Inspection: normal respiratory effort and able to speak in complete sentences Cardio Rate: regular rate GI Inspection: Yes normal to inspection General: Yes no CVA tenderness Back/Spine/Pelvis Back: no CVA tenderness Skin General skin exam: no rashes or lesions noted Neuro General: patient oriented x3 Extrem General: Yes normal to inspection Psych Appearance: grossly normal and well kempt Mental Status: mental status grossly normal Speech and movement: Normal speech and movement present and Clear speech present Affect: normal affect Attitude: cooperative Thought process: Normal thought process present Thought content: Normal thought content present Insight: Fair insight present (Psych) Judgement: Fair judgement present (Psych) Office Procedures Post Void Residual Post Residual Void Post Void Residual (PVR): 20 [id number] Void Residual by ultrasound Results AMB Urinalysis, Automated UA Leukoctes 0 Cristobal/uL Last Edit by Kathy Crawford on 07/11/24 15:40 UA Nitrite Last Edit by [employer] Ty on 07/11/24 15:40 UA Urobilinogen 0.2 mg/dL Last Edit by [employer] AngelicaFanaticall on 07/11/24 15:40 UA Protein 0 mg/dL Last Edit by [employer] Crawford on 07/11/24 15:40 UA pH 6.0 Last Edit by [employer] Crawford on 07/11/24 15:40 UA Blood 0 Leonard/uL Last Edit by [employer] Ty on 07/11/24 15:40 UA Specific [place] 1.015 Last Edit by [employer] on 07/11/24 15:40 UA Ketone Negative Last Edit by Kathy Angelicajohnny on 07/11/24 15:40 UA Bilirubin 0 mg/dL Last Edit by Kathy Angelicajohnny on 07/11/24 15:40 UA Glucose 0 mg/dL Last Edit by Kathy Angelicajohnny on 07/11/24 15:40 Results Reviewed Results Reviewed: Date of Service: 05/14/24 Procedure(s): US bladder Findings: Prevoid volume: 379 mL. Postvoid volume: 207 mL Ureteral jets are visualized bilaterally. No bladder wall thickening. No bladder calculi. Prostate gland measures 3.9 x 4.8 x 5.0 cm in size. This gives a volume of 48 mL. IMPRESSION: Large postvoid residual. Assessment & Plan Assessment & Plan (1) Lower urinary tract symptoms: Code(s): R39.9 - Unspecified symptoms and signs involving the genitourinary system Category: Medical (2) Enlarged prostate: Code(s): N40.0 - Benign prostatic hyperplasia without lower urinary tract symptoms Category: Medical (3) Nocturia: Code(s): R35.1 - Nocturia Category: Medical (4) Feeling of incomplete bladder emptying: Code(s): R39.14 - Feeling of incomplete bladder emptying Category: Medical Plan In office urinalysis results reviewed the patient today; as noted above. PVR 20 mL. Recent bladder ultrasound results reviewed the patient today; as noted above. Previous PSA results with the patient today; as noted above. Stop Flomax. Start terazosin 5 mg at bedtime as discussed and prescribed. Continue finasteride. We discussed at length potential causes of lower urinary tract symptoms patient was experiencing as well as further treatment options and risks and benefits of these treatment options. We discussed potential for near future in office cystoscopy if symptoms continue and or worsen. Continue limiting fluids 2-3 hours prior to bed to decrease episodes of nocturia. Follow-up in 1-3 months with PVR; or sooner with any issues, concerns, and or questions. Orders: Orders AMB Urinalysis Automated Today Z13.9 - Encounter for screening, unspecified AMB Post Void Residual by ultrasound Today N40.1 - Benign prostatic hyperplasia with lower urinary tract symptoms, R35.0 - Frequency of micturition Medications: New terazosin 5 mg PO BEDTIME 30 days 30 caps 3RF N40.1 - Benign prostatic hyperplasia with lower urinary tract symptoms, R35.0 - Frequency of micturition Discontinued tamsulosin (Flomax) Discontinued Reason: Doctor's Order 0.4 mg PO DAILY 90 caps 3RF Patient Instructions: The patient had an opportunity to ask questions regarding the treatment plan. All questions were answered. Physical exam, labs, and imaging were discussed and reviewed in detail. As well as risks, benefits, and discussion of treatment choices. No major barriers to understanding were identified. The patient expressed understanding and agreement with the above treatment plan. The patient was made aware they should contact our office by phone for worsening of their current condition, the appearance of new symptoms, or with any questions or concerns. Compliance is encouraged with any medications and follow up testing that is ordered. It is a privilege to be allowed the opportunity to participate in? your urological care.? Again, if you have any questions or concerns If you have any questions or concerns please do not hesitate to contact me. The office is [phone]. This note is constructed using voice recognition software. While every effort has been made to ensure accuracy shearing shed worker errors may have been included. Yours sincerely, KYLEE Duenas Coding Level of Care Code New Pt Level 4 (42455) Diagnoses Lower urinary tract symptoms R39.9 Enlarged prostate N40.0 Nocturia R35.1 Feeling of incomplete bladder emptying R39.14 CPT Codes Post Residual Void - PVR CPT Code: 20969-Uiyr Void Residual by ultrasound ([id number])
== END 2024-07-11 15:55 | disposition home or self-care (01) ==
LOC: HO.HUSH 15:08
PROVIDERS: PCP Internal Medicine; Visit Provider Nurse Practitioner Family
DX: R39.9 Unspecified symptoms and signs involving the genitourinary system (principal); N40.0 Benign prostatic hyperplasia without lower urinary tract symptoms; R35.1 Nocturia; R39.14 Feeling of incomplete bladder emptying; Z13.9 Encounter for screening, unspecified
CPT/HCPCS: 99204

== ENCOUNTER → 2024-07-11 15:07 | Outpatient (BNVA) | payer OTHER, SELFPAY | PROVIDERS: PCP Internal Medicine; Visit Provider Nurse Practitioner Family | DX: N40.1 Benign prostatic hyperplasia with lower urinary tract symptoms (principal); R35.1 Nocturia; R39.14 Feeling of incomplete bladder emptying; N18.9 Chronic kidney disease, unspecified; E78.00 Pure hypercholesterolemia, unspecified | CPT/HCPCS: 51798; 81003 ==

== ENCOUNTER 2024-09-05 12:05 | Outpatient (AMB) | payer OTHER, SELFPAY ==
--- NOTE | 2024-09-05 12:05 | A.OFFVIS_ITS ---
Intake Visit Reasons: 2m follow up Allergies oxycodone [From PERCOCET] Allergy (Unknown, Verified 07/11/24 15:53) ITCHY THROAT, FEELS BAD Medication List - Last Reconciled 09/05/24 by KYLEE Duenas finasteride 5 mg PO DAILY hydrochlorothiazide 12.5 mg PO QAM levetiracetam 1,000 mg PO BID lisinopril 10 mg PO DAILY multivitamin 1 tab PO DAILY omeprazole 20 mg PO DAILY terazosin 5 mg PO BEDTIME 30 days tramadol 50 mg PO BEDTIME HPI Comments Details: Ko Lilly is a very pleasant 69-year-old male patient of Dr. MORENO. He has a past medical history of chronic kidney disease, head trauma, facial ba shantell cell cancer, plantar fasciitis, hypertension, vitamin-D deficiency, BPH, and hypercholesteremia. He is being followed up on today via video telehealth for his ongoing lower urinary tract symptoms (nocturia). In discussion with the patient today reports to be doing and feeling well He reports improvement in nocturia since initiating terazosin 5 mg at bedtime and is enquiring refill. He reports compliance with finasteride as prescribed. Previously patient had trialed Flomax however felt he continued with lower urinary tract symptoms of nocturia up to 5 times per night. Previous workup has included a bladder ultrasound 05/18 noting Pre void bladder volume is approximately 380 mL. Postvoid bladder volume was approximately 210 mL. No bladder wall thickening or bladder calculi noted. Prostate gland is mildly enlarged measuring 48 mL. We discussed incomplete bladder emptying during bladder ultrasound however PVR during last office visit was noted to be 20 mL. He otherwise denies frequency, incontinence, hematuria, dysuria, foul smelling urine, changes to urinary stream, flank pain, fever, and or chills. We discussed potential causes of nocturia as well as importance of lifestyle modifications such as limiting fluids 2-3 hours prior to bed to decrease episodes of nocturia. In review of patient's chart it appears PSAs are as follows: PSA: 06/15 1.5, 06/16 1.4, 06/17 1.4, 01/15 1.4 PFSH Medical History CKD (chronic kidney disease) Head trauma History of fall Impaired glucose tolerance Hearing loss in left ear Facial basal cell cancer Plantar fasciitis Hypertension Vitamin D deficiency BPH (benign prostatic hyperplasia) Hypercholesterolemia Surgical History History of left inguinal hernia repair (09/22/22) History of inguinal hernia repair, bilateral History of strabismus surgery History of arthroscopic knee surgery H/O umbilical hernia repair Social History Housing: House Alcohol intake: current Comment: 3x a week 1-2 glasses of wine, Patient Tobacco Use Status: Former Tobacco user Tobacco use type: Cigarette Years Smoked: [id number] 4-5 years e-Cigarette/Vaping Use: Never Used Second Hand Smoke Exposure: No service: No Current occupational status: retired Cognitive needs: No Hearing needs: No Vision needs: Yes Review of Systems Const All systems reviewed & are unremarkable except as noted in HPI and below Physical Exam Const General: cooperative, healthy appearing, comfortable, no acute distress, well developed, alert and awake Orientation/consciousness: patient oriented x3 Resp Effort & Inspection: normal respiratory effort and able to speak in complete sentences Neuro General: patient oriented x3 Psych Appearance: grossly normal and well kempt Mental Status: mental status grossly normal Speech and movement: Normal speech and movement present and Clear speech present Affect: normal affect Attitude: cooperative Thought process: Normal thought process present Thought content: Normal thought content present Insight: Fair insight present (Psych) Judgement: Fair judgement present (Psych) Telehealth Telehealth Telehealth Platform: [facility] Location of provider rendering services: practice address Location of patient: address on file Patient Identification confirmed using: Name, : Yes Telehealth method: video Patient verbally consented to treatment: Yes Patient verbally consented to billing insurance company: Yes Patient informed of any privacy concerns related to visit: Yes Minutes spent on Phone/Video with Pt.: 15 Assessment & Plan Assessment & Plan (1) Feeling of incomplete bladder emptying: Code(s): R39.14 - Feeling of incomplete bladder emptying Category: Medical (2) Nocturia: Code(s): R35.1 - Nocturia Category: Medical (3) Enlarged prostate: Code(s): N40.0 - Benign prostatic hyperplasia without lower urinary tract symptoms Category: Medical (4) Lower urinary tract symptoms: Code(s): R39.9 - Unspecified symptoms and signs involving the genitourinary system Category: Medical Plan Continue terazosin as prescribed; refill provided. Continue finasteride as prescribed. We discussed importance of limiting fluids 2-3 hours prior to bed to decrease episodes of nocturia. Patient reports be happy with current voiding parameters on finasteride and terazosin He currently denies any bothersome urinary issues or concerns. Will continue with surveillance monitoring. Will obtain PSA in 6 months. Follow-up in 6 months with PSA and PVR; or sooner with any issues, concerns, and or questions. Orders: Orders Prostate Specific Antigen 6 Months N40.0 - Benign prostatic hyperplasia without lower urinary tract symptoms Medications: Changed From terazosin 5 mg PO BEDTIME 30 days 30 caps 3RF N40.1 - Benign prostatic hyperplasia with lower urinary tract symptoms, R35.0 - Frequency of micturition To terazosin 5 mg PO BEDTIME 90 caps 3RF 90 days N40.1 - Benign prostatic hyperplasia with lower urinary tract symptoms, R35.0 - Frequency of micturition Patient Instructions: The patient had an opportunity to ask questions regarding the treatment plan. All questions were answered. Physical exam, labs, and imaging were discussed and reviewed in detail. As well as risks, benefits, and discussion of treatment choices. No major barriers to understanding were identified. The patient expressed understanding and agreement with the above treatment plan. The patient was made aware they should contact our office by phone for worsening of their current condition, the appearance of new symptoms, or with any questions or concerns. Compliance is encouraged with any medications and follow up testing that is ordered. It is a privilege to be allowed the opportunity to participate in? your urological care.? Again, if you have any questions or conc erns If you have any questions or concerns please do not hesitate to contact me. The office is [phone]. This note is constructed using voice recognition software. While every effort has been made to ensure accuracy psychologist developmental errors may have been included. Yours sincerely, KYLEE Duenas Coding Level of Care Code Tele Est Pt Level 3 (46695) Diagnoses Feeling of incomplete bladder emptying R39.14 Nocturia R35.1 Enlarged prostate N40.0 Lower urinary tract symptoms R39.9
--- OUTSIDE RECORDS SUMMARY | 2024-09-05 13:02 | XMS_ITS | Patient Health Record ---
Author Organization [facility] Address [address] [place] [address] Care Team Providers Care Sales Developer Name Role Phone Po Abby QIU Primary Care Provider Neil Nguyen [phone] Allergies Allergen (clinical drug ingredient) Drug/Non Drug Allergy documented on EMR Reaction Allergy Type Onset Date Status acetaminophen / oxycodone Percocet Unknown Drug Allergy Active Reason For Referral No Information Medications Medication SIG (Take, Route, Frequency, Duration) Notes Start Date End Date Status traMADol HCl 50 MG Oral for 7 Days Active Terazosin HCl 5 MG Oral for 90 Days Active Omeprazole 20 MG Oral for 30 Days Active hydroCHLOROthiazide 12.5 MG TK 1 C PO QD IN THE MORNING Oral for 30 Active Lisinopril 10 MG 1 tablet Orally Once a day 07/24/2024 Active Finasteride 5 MG TK 1 T PO QD Oral for 90 Active Immunizations Vaccine Route Administration Date Status Comme nts Influenza Unknown 12/23/2018 Administered Influenza Unknown 01/10/2024 Administered Social History AUDIT-C (Standard) Question Answer Notes Did you have a drink contain ing alcohol in the past year? Yes How often did you have a dri nk containing alcohol in the past year? Monthly or less (1 point) How many drinks did you have on a typical day when you were drinking in the past year? 1 or 2 drinks (0 point) How often did you have six o r more drinks on one occasion in the past year? Never (0 point) Points 1 Interpretation Negative Section Notes: Nonsmoker; no sig alcohol Nonsmoker; no sig alcohol Nonsmoker; no sig alcohol Problems Problem Type SNOMED Code ICD Code Onset Dates Problem Status W/U Status Risk Notes Problem [id number] Encounter for screening for malignant neoplasm of colon (Z12.11) Active confirmed Problem 759225204197244 Preprocedural examination (Z01.818) Active confirmed Problem 062435856 Family history o f colon cancer (Z80.0) Active confirmed Vital Signs Temperature 97.3 degrees Fahrenheit 07/24/2024 Blood pressure diastolic 01 mm Hg 07/24/2024 Height 74 in 07/24/2024 Blood pressure systolic 001 mm Hg 07/24/2024 Weight 166 lbs 07/24/2024 BMI 21.31 kg/m2 07/24/2024 Procedures Procedure Date Ordered Date Performed Result Body Sit e UPPER GI ENDOSCOPY 07/24/2024 N/A COLONOSCOPY 07/24/2024 N/A Encounters Encounter Location Date Provider Diagnosis [facility] [address] [place] [address] 07/24/2024 Neil Carter Abnormal upper gastrointestinal barium series R93.3 ; Colon cancer screening Z12.11 and Family history of colon cancer Z80.0 Assessments Encounter Date Diagnosis (ICD Code) Assessment Notes Treatment Notes Treatment Clinical Notes Section Notes 07/24/2024 Colon cancer screening (ICD-10 - Z12.11) with MAC Do not take the Hydrochlorothiaizide the day before or on the day of the procedures .Overall, Luke appears quite well. I did recommend a follow-up colonoscopy for further screening given the family history of colon cancer in his brother and his last colonoscopy being almost 5 years ago. We did review the rationale for that in regard to colon cancer prevention. I have also recommended an upper endoscopy on the same day for evaluation of the abnormalities seen on the upper GI series. Full consent has been taken from him for both procedures, including risks of bleeding and perforation. The procedures will be done with monitored anesthesia care. He was given the below instructions regarding adjustment of his medication for the procedure. I did advise him that I think he could stop omeprazole at this point since he was not having any particular GI symptoms prior to the upper GI series. If indeed he did have ulcer disease as described on the upper GI series they should be healed after 2 or 3 months of the omeprazole at this time. I will plan to obtain gastric biopsies to inspect for H. pylori. Luke was comfortable with this plan. Thank you again for allowing me to participate in Luke's care. I shall continue to keep you advised of his progress. 07/24/2024 Abnormal upper gastrointestinal barium series (ICD-10 - R93.3) Stop omeoprazole for now, but resume if needed .Overall, Luke appears quite well. I did recommend a follow-up colonoscopy for further screening given the family history of colon cancer in his brother and his last colonoscopy being almost 5 years ago. We did review the rationale for that in regard to colon cancer prevention. I have also recommended an upper endoscopy on the same day for evaluation of the abnormalities seen on the upper GI series. Full consent has been taken from him for both procedures, including risks of bleeding and perforation. The procedures will be done with monitored anesthesia care. He was given the below instructions regarding adjustment of his medication for the procedure. I did advise him that I think he could stop omeprazole at this point since he was not having any particular GI symptoms prior to the upper GI series. If indeed he did have ulcer disease as described on the upper GI series they should be healed after 2 or 3 months of the omeprazole at this time. I will plan to obtain gastric biopsies to inspect for H. pylori. Luke was comfortable with this plan. Thank you again for allowing me to participate in Luke's care. I shall continue to keep you advised of his progress. 07/24/2024 Family history of colon cancer (ICD-10 - Z80.0) .Overall, Luke appears quite well. I did recommend a follow-up colonoscopy for further screening given the family history of colon cancer in his brother and his last colonoscopy being almost 5 years ago. We did review the rationale for that in regard to colon cancer prevention. I have also recommended an upper endoscopy on the same day for evaluation of the abnormalities seen on the upper GI series. Full consent has been taken from him for both procedures, including risks of bleeding and perforation. The procedures will be done with monitored anesthesia care. He was given the below instructions regarding adjustment of his medication for the procedure. I did advise him that I think he could stop omeprazole at this point since he was not having any particular GI symptoms prior to the upper GI series. If indeed he did have ulcer disease as described on the upper GI series they should be healed after 2 or 3 months of the omeprazole at this time. I will plan to obtain gastric biopsies to inspect for H. pylori. Luke was comfortable with this plan. Thank you again for allowing me to participate in Luke's care. I shall continue to keep you advised of his progress. Plan Of Treatment Pending Test Test Name Order Date UPPER GI ENDOSCOPY 07/24/2024 COLONOSCOPY 07/24/2024 Future Test Test Name Order Date COLONOSCOPY 08/27/2014 COLONOSCOPY 12/19/2019 Next Appt Details Provider Name:Neil Carter , 10/11/2024 01:20:00 PM, [address] [place] [address] , [place], [place], [phone], Insurance Providers Payer Name Payer Address Payer Phone Subscriber Number Group Number Insured Name Patient Relationship to Insured Coverage Start Date Coverage End Date [facility] [address] [facility] [place] [phone] [id number] CECILIALUKE NAVARRO Self - patient is the insured Medical (General) History Medical History History ICD Code Screening colonoscopy [phone]--neg. except for sigmoid diverticulosis and internal hemorrhoids Denies NM,DM,CVA,Lung disease,renal dise ase Hypertension Colonoscopy 11/2014 with a hyperplastic p olyp BPH Fractured back, pelvis, ribs, and concus ursula from a fall at home 09/2023 Colonoscopy in December 0 revealed a small hyperplastic polyp that was removed Surgical History Surgery Date(Month/Year) Bilateral inguinal hernia repair--Dr. Whaley rtmeme 06/25/2019 Eye surgery Right inguinal and umbilical hernia surg jass 5 Knee surgeries
--- OUTSIDE RECORDS SUMMARY | 2024-09-05 13:02 | XMS_ITS ---
Author Organization [facility] Address [address] [place] [address] Care Team Providers Care Floor Associate Name Role Phone Po Abby QIU Primary Care Provider Neil Nguyen [phone] Allergies Allergen (clinical drug ingredient) Drug/Non Drug Allergy documented on EMR Reaction Allergy Type Onset Date Status acetaminophen / oxycodone Percocet Unknown Drug Allergy Active REASON FOR VISIT Patient presents today for GASTRIC ULCER Medications Medication SIG (Take, Route, Frequency, Duration) Notes Start Date End Date Status traMADol HCl 50 MG Oral for 7 Days Active Terazosin HCl 5 MG Oral for 90 Days Active Omeprazole 20 MG Oral for 30 Days Active Finasteride 5 MG TK 1 T PO QD Oral for 90 Active hydroCHLOROthiazide 12.5 MG TK 1 C PO QD IN THE MORNING Oral for 30 Active Lisinopril 10 MG 1 tablet Orally Once a day 07/24/2024 Active Social History Alcohol Screen Question Answer Notes Did you have a drink contain ing alcohol in the past year? Yes Points 3 Interpretation Negative How often did you have 6 or more drinks on one occasion in the past year? Never (0 point) How many drinks did you have on a typical day when you were drinking in the past year? 1 or 2 drinks (0 point) How often did you have a dri nk containing alcohol in the past year? 2 to 3 times a week (3 points) AUDIT-C (Standard) Question Answer Notes Did you [...] Negative Section Notes: Nonsmoker; no sig alcohol Vital Signs Temperature 97.3 degrees Fahrenheit 07/25/19 25 Blood pressure systolic 001 mm Hg 07/25/19 25 Blood pressure diastolic 01 mm Hg 025 Height 74 in 07/24/2024 Weight 166 lbs 07/24/2024 BMI 21.31 kg/m2 07/24/2024 Procedures Procedure Date Ordered Date Performed Result Body Sit e UPPER GI ENDOSCOPY 07/24/2024 N/A COLONOSCOPY 07/24/2024 N/A Encounters Encounter Location Date Provider Diagnosis [facility] [address] [place] [address] 07/24/2024 Neil Carter Abnormal upper gastrointestinal barium series R93.3 ; Colon cancer screening Z12.11 and Family history of colon cancer Z80.0 Assessments Encounter Date Diagnosis (ICD Code) Assessment Notes Treatment Notes Treatment Clinical Notes Section Notes 07/24/2024 Abnormal upper gastrointestinal barium series (ICD-10 [...] keep you advised of his progress. 07/24/2024 Colon cancer screening (ICD-10 - Z12.11) [...] advised of his progress. Plan Of Treatment Treatment Notes Assessment Notes Abnormal upper gastrointesti nal barium series Stop omeoprazole for now, but resume if needed Colon cancer screening with MAC Do not take the Hydrochlorothiaizide the day before or on the day of the procedures Pending Test Test Name Order Date UPPER GI ENDOSCOPY 07/24/2024 COLONOSCOPY 07/24/2024 Next Appt Details Follow Up: prn, Reason: Provider Name:Neil Carter , 10/11/2024 01:20:00 PM, [address] [place] [address], [phone], Progress Notes * LUKE MORALES JrDOB:[birth year] (69 yo M)Acc No.[id number]:07/24/2024 Progress Notes Patient:?ANDREW LUKE Danie akhtar Provider:?Neil Carter MD :1955???Age:69 Y???Sex:Male Collin e:07/24/2024 Address:[place] [id number] Pcp:Abby Kothari MD Subjective: * Chief Complaints: * ???Patient presents today fo r GASTRIC ULCER * HPI: ???incontinence:? I saw Luke in consultation today in regard to evaluation of his family history of colorectal cancer, need for colorectal cancer screening, and abnormal upper GI series. I last saw Luke in December 2019, at which time he underwent a follow-up screening colonoscopy with removal of only hyperplastic polyp. He has been feeling well from a GI standpoint but did have some transient dysphagia late last year which prompted an upper GI series. The upper GI series describes some reflux and some question of small gastric ulcerations, but no particularly worrisome findings nor any evidence of an esophageal stricture. He was started on omeprazole at that time although he describes that he was not having any particular heartburn or abdominal pain at the time. Since being on the omeprazole he has been continuing to feel well from a GI standpoint. He has not had any dysphagia whatsoever and has a good appetite. He denies any early satiety, nausea, nor vomiting. He denies abdominal pain, jaundice, nor unintentional weight loss. His bowel movements have remained regular and without any signs of bleeding. Laboratories in December 2023 revealed a hemoglobin of 15.5, normal chemistries and renal function, and normal LFTs. * ROS:?General/Constitutional:?Change in appetite?denies.?Chills?denies.?Fatigue?denies.?Ophthalmologic:?Patient denies? Negative..?ENT:?Patient denies?Negative..?Respiratory:?Patient denies?No coughing/hemoptysis..?Cardiovascular:?Patient denies? No chest pain/orthopnea..?Gastrointestinal:?Comments?See HPI for details.?Genitourinary:?Patient denies? No dysuria/hematuria..?Incontinence?denies.?Musculoskeletal:?Patient denies? No specific arthralgias/myalgias..?Skin:?Patient denies?No rash/pruritus..?Neurologic:?Patient denies? No headaches/seizures..?Psychiatric:?Patient denies?Negative..? * Medical History:? * Surgical History:?5 Knee avril geries Right inguinal and umbilical hernia surgery Eye surgery Bilateral inguinal hernia repair--Dr. Mills 06/25/2019 * Hospitalization/Major Diagno stic Procedure:?No Hospitalization History. * Family History:?Father: dece ased.?Mother: alive 85 yrs.?Siblings: , Brother of colon cancer at age 54, diagnosed with Colon cancer.? Brother had colon cancer and liver cancer. * Social History:?Tobacco Use:?Tobacco Use/Smoking?Are you a: nonsmoker.?Drugs/Alcohol:?Alcohol Screen?Did you have a drink containing alcohol in the past year??Yes,?How often did you have 6 or more drinks on one occasion in the past year??Never (0 point),?How many drinks did you have on a typical day when you were drinking in the past year??1 or 2 drinks (0 point),?How often did you have a drink containing alcohol in the past year??2 to 3 times a week (3 points),?Points?3,?Interpretation?Negative.?Miscellaneous:?Marital status: . 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 ???Drug/Alcohol:?AUDIT-C (Standard)?Did you have a drink containing alcohol in the past year??Yes,?How often did you have a drink containing alcohol in the past year??Monthly or less (1 point),?How many drinks did you have on a typical day when you were drinking in the past year??1 or 2 drinks (0 point),?How often did you have six or more drinks on one occasion in the past year??Never (0 point),?Points?1,?Interpretation?Negative.?Nonsmoker; no sig alcohol. * Medications:?TakingLisinopri l 10 MG Tablet 1 tablet Orally Once a day hydroCHLOROthiazide 12.5 MG Capsule TK 1 C PO QD IN THE MORNING Oral Finasteride 5 MG Tablet TK 1 T PO QD Oral Terazosin HCl 5 MG Capsule Oral traMADol HCl 50 MG Tablet Oral Omeprazole 20 MG Capsule Delayed Release Oral Taking Lisinopril 10 MG Tablet 1 tablet Orally Once a day Taking hydroCHLOROthiazide 12.5 MG Capsule TK 1 C PO QD IN THE MORNING Oral Taking Finasteride 5 MG Tablet TK 1 T PO QD Oral Taking Terazosin HCl 5 MG Capsule Oral Taking traMADol HCl 50 MG Tablet Oral Taking Omeprazole 20 MG Capsule Delayed Release Oral DiscontinuedTamsulosin HCl 0.4 MG Capsule TK 1 C PO QD Oral Discontinued Tamsulosin HCl 0.4 MG Capsule TK 1 C PO QD Oral * Allergies:?Percocetyes[Aller gies Verified] Objective: * Vitals:?Wt:166lbs, Ht: 74 in , BMI:21.31Index, BP:001/01mm Hg, Temp:97.3, Wt-k.3. * Examination: ???General Examination: ?GENERAL APPEARANCE:?pleasant, well nourished, well developed, in no acute distress.?EYES:?sclera non-icteric.?ORAL CAVITY:?mucosa moist.?NECK/THYROID:?no cervical lymphadenopathy, neck supple.?SKIN:?nonjaundiced, no spider angiomata..?HEART:?S1, S2 normal.?LUNGS:?clear to auscultation bilaterally.?ABDOMEN:?normal bowel sounds, no guarding or rigidity, no hepatosplenomegaly, no masses palpable, soft, nontender, nondistended..?EXTREMITIES:?no edema.?NEUROLOGIC:?alert and oriented.? Assessment: * Assessment: 1.?Abnormal upper gastrointe stinal barium series - R93.3 (Primary)???2.?Colon cancer screening - Z12.11???3.?Family history of colon cancer - Z80.0??? .Overall, Luke appears qu ite well. I did recommend a follow-up colonoscopy [...] to keep you advised of his progress. Plan: * Treatment: Notes: Stop omeoprazole for now, but resume if needed??2.?Colon cancer screening ?Procedure: COLONOSCOPY* sched for 10/11/24 at 1:20 pm macmiralax Notes: with MAC Do not take the Hydrochlorothiaizide the day before or on the day of the procedures??3.?Family history of colon cancer?Procedure: COLONOSCOPY* sched for 10/11/24 at 1:20 pm macmiralax * Procedure Codes:?26132 UPPR GI ENDOSCOPY, [id number] DIAGNOSTIC [id number] COLORECTAL CA SCREEN DOC [id number] TOBACCO [id number] BP SCR NOT PRFRM REC REASON ZOG3330L RCMND FLW-UP 10 YRS DOCD * Preventive Medicine:? ??Screenings:?Fall Risk Screening?Fall Risk Assessment:?One fall with injury in the past year,?Screening:?One fall with injury in the past year,?Assessment:?Not performed, no reason specified,?Plan of Care:?Documented,?Type of fall plan of care:?Balance, strength and gait training or instruction provided.? * Follow Up:?prn * * Sign off status: Completed true * Provider:?Neil Carter MD Date:? 025 Generated for Sundeep amor/Charlette/eTransmitting on:?09/05/2024 01:01 PM EDT History and Physical Notes * Examination Category Sub-Category Detail Notes Category Not es General Examination GENERAL APPEARANCE: pleasant , well nourished, well developed, in no acute distress EYES: sclera non-icteric NECK/THYROID: no cervical lymphade nopathy, neck supple HEART: S1, S2 normal LUNGS: clear to auscultatio n bilaterally ABDOMEN: normal bowel sounds, no guarding or rigidity, no hepatosplenomegaly, no masses palpable, soft, nontender, nondistended. NEUROLOGIC: alert and oriented SKIN: nonjaundiced, no spi codi angiomata. EXTREMITIES: no edema ORAL CAVITY: mucosa moist
== END 2024-09-05 13:09 | disposition home or self-care (01) ==
LOC: HO.HUSH 12:05
PROVIDERS: PCP Internal Medicine; Visit Provider Nurse Practitioner Family
DX: R39.14 Feeling of incomplete bladder emptying (principal); R35.1 Nocturia; N40.0 Benign prostatic hyperplasia without lower urinary tract symptoms; R39.9 Unspecified symptoms and signs involving the genitourinary system
CPT/HCPCS: 99213

== ENCOUNTER 2024-09-26 06:08 | Outpatient (REF) | payer OTHER, SELFPAY ==
--- OUTSIDE RECORDS SUMMARY | 2024-09-26 06:11 | XMS_ITS | Patient Health Record ---
Author Organization [facility] Address [address] [place] [address] Care Team Providers Care Certified Ski Patroller Name Role Phone Po Abby QIU Primary Care Provider Neil Nguyen [phone] Allergies Allergen (clinical drug ingredient) Drug/Non Drug [...] Problem Status W/U Status Risk Notes Problem 606879314 Encounter for screening for malignant neoplasm of colon (Z12.11) Active confirmed Problem 093996939160791 Preprocedural examination (Z01.818) Active confirmed Problem 361196140 Family history o f colon cancer (Z80.0) [...] N/A Encounters Encounter Location Date Provider Diagnosis [facility] [address] [place] [address] 07/24/2024 Neil Carter Abnormal upper gastrointestinal barium [...] Provider Name:Neil Carter , 10/11/2024 01:20:00 PM, [address] [place] [address] , [place], [place], [phone], Insurance Providers Payer Name Payer Address Payer Phone Subscriber Number Group Number Insured Name Patient Relationship to Insured Coverage Start Date Coverage End Date [facility] [address] [facility] [place] [phone] [id number] CECILIALUKE NAVARRO Self - patient is the insured Medical (General) History Medical History History ICD Code Screening colonoscopy [phone]--neg. except for sigmoid diverticulosis and internal hemorrhoids Denies ID,DM,CVA,Lung disease,renal dise ase Hypertension Colonoscopy 11/2014 with [...]
[2024-09-26 06:34] LABS: MANUAL DIFF FLAG NO
[2024-09-26 07:22] LABS: Basophils Percent Auto 0.8 % (0-2); Eosinophils Absolute Auto 0.2 X10*3/uL (0.0-0.4); Eosinophils Percent Auto 3.6 % (0-4); Hematocrit 37.9 % (42.0-52.0); Imm Gran Abs Auto 0.01 X10*3/uL (0.00-0.03); Imm Gran Pct Auto 0.2 % (0.0-0.4); Lymphocytes Absolute Auto 1.4 X10*3/uL (1.2-4.9); Lymphocytes Percent Auto 27.1 % (20-40); Mean Corpuscular HGB Conc 34.3 g/dl (31.0-36.0); Mean Corpuscular Hemoglobin 31.1 pg (27.0-33.0); Mean Corpuscular Volume 90.7 fL (80.0-98.0); Mean Platelet Volume 10.3 fL (9.4-12.4); Monocytes Absolute Auto 0.6 X10*3/uL (0.1-1.2); Monocytes Percent Auto 12.3 % (2-11); Neutrophils Absolute Auto 2.8 x10*3/uL (2.0-8.3); Platelet Count 206 X10*3/uL (160-400); Red Blood Count 4.18 X10*6/uL (4.60-5.80); Red Cell Distribution Width 12.2 % (11.0-16.0); White Blood Count 5.1 X10*3/uL (4.8-10.8)
[2024-09-26 07:32] LABS: Estimated Average Glucose 97 mg/dL
[2024-09-26 08:01] LABS: Alanine Aminotransferase 15 U/L (0-40); Albumin Level 3.9 g/dL (3.5-5.0); Alkaline Phosphatase 39 U/L (39-117); Anion Gap 9 (12-20); Aspartate Amino Transferase 14 U/L (5-37); Blood Urea Nitrogen 26 mg/dL (9-16); Calcium 9.1 mg/dL (8.4-10.2); Carbon Dioxide 29 mmol/L (22-29); Chloride 107 mmol/L (96-108); Cholesterol 169 mg/dL (<200); Estimated Glomerular Filt Rate 59; Glucose Random 102 mg/dL (60-115); HDL Cholesterol 64 mg/dL (>40); LDL Cholesterol Calculated 91 mg/dL (<100); Potassium 3.9 mmol/L (3.3-5.1); Sodium 141 mmol/L (135-145); Total Protein 6.2 g/dL (6.5-8.0); Triglycerides 73 mg/dL (<150)
[2024-09-26 08:23] LABS: Free T4 (Free Thyroxine) 1.01 ng/dL (0.71-1.85); Thyroid Stimulating Hormone 3.07 uIU/mL (0.32-4.0)
[2024-09-26 08:26] LABS: Folate 13.6 ng/mL (> or = 4.0); Prostate Specific Antigen Scr 1.04 ng/mL (<0.05-4.0); Vitamin B12 572 pg/mL (200-900)
== END 2024-09-26 06:09 | disposition home or self-care (01) ==
LOC: HO.LAB 06:08
PROVIDERS: PCP Internal Medicine; Visit Provider Internal Medicine
DX: E78.00 Pure hypercholesterolemia, unspecified (principal); N28.9 Disorder of kidney and ureter, unspecified; R73.02 Impaired glucose tolerance (oral); Z12.5 Encounter for screening for malignant neoplasm of prostate
CPT/HCPCS: 36415; 80053; 80061; 82607; 82746; 83036; 84153; 84439; 84443; 85025

== ENCOUNTER 2024-09-27 10:46 | Outpatient (AMB) | payer OTHER, SELFPAY ==
[2024-09-27 10:48] VITALS: BP 110/68; PULSE 87; O2SAT 97; BMI 20.7
--- NOTE | 2024-09-27 10:48 | MHC.PC.OV ---
Vital Signs 09/27/24 10:48 Height 6 ft 2 in Weight 161 lb 8 oz BMI 20.7 BP 110/68 Blood Pressure Location Lt brachial Position Sitting Pulse 87 Pulse Source Pulse Oximeter Pulse Oximetry (%) 97 Oxygen Delivery Method Room Air Intake Visit Reasons: ED/Follow UP [facility]/Seizure 09/12/24 Banking Representative Required: No Accompanied by: Self / Same As Patient Allergies oxycodone [From PERCOCET] Allergy (Unknown, Verified 09/27/24 10:48) ITCHY THROAT, FEELS BAD Tobacco use date assessed: 09/27/24 Fall risk assessment: 1 Fall in past year Last assessed Fall Risk: 09/27/24 Dental Screening Dental Screen Date: 09/27/24 Did you have a dental visit in the last 12 months?: Yes Did you have a dental problem in the last 6 months where you did not have access to dental care?: No Was dental information given to patient?: Patient has dentist HPI HPI Comments History of Present Illness Details 69 y/o Male patient who presents to the clinic today for EDF. Pt was admitted at [facility] for evaluation and treatment of Seizure activity. He has h/o Seizures and follows with [facility] Neurology. He is Keppra which was increase to 1250 mg Last Monday when he saw Neurology. Pt was told to stop Tramadol because it might trigger seizure like activities. Pt takes Tramadol at Bedtime for pain relief due to multiple Spine Fractures. Pt wondering what he could take for pain and sleep at bedtime. Pt had Gabapentin 300 mg in the past that he took with minimal relief. Advised to double the current dose and see if helps. Pt has an appointment with PCP 10/08 - he would like to wait and speak to him first. [facility] Medical History CKD (chronic kidney disease) Head trauma History of fall Impaired glucose tolerance Hearing loss in left ear Facial basal cell cancer Plantar fasciitis Hypertension Vitamin D deficiency BPH (benign prostatic hyperplasia) Hypercholesterolemia Surgical History History of left inguinal hernia repair (09/22/22) History of inguinal hernia repair, bilateral History of strabismus surgery History of arthroscopic knee surgery H/O umbilical hernia repair Social History (Reviewed 09/27/24 @ 10:48 by WENDY Cuenca Housing: House Alcohol intake: current Comment: 3x a week 1-2 glasses of wine, Patient Tobacco Use Status: Former Tobacco user Tobacco use type: Cigarette Years Smoked: [id number] 4-5 years e-Cigarette/Vaping Use: Never Used Second Hand Smoke Exposure: No service: No Current occupational status: retired Cognitive needs: No Hearing needs: No Vision needs: Yes Questionnaire PHQ-9 Over the last 2 weeks, how often have you been bothered by any of the following problems? 1. Little interest or pleasure in doing things: not at all 2. Feeling down, depressed, or hopeless: not at all 3. Trouble falling or staying asleep, or sleeping too much: several days 4. Feeling tired or having little energy: several days 5. Poor appetite or overeating: not at all 6. Feeling bad about yourself - or that you are a failure or have let yourself or your family down: not at all 7. Trouble concentrating on things, such as reading the newspaper or watching television: not at all 8. Moving or speaking so slowly that other people could have noticed. Or the opposite - being so fidgety or restless that you have been moving around a lot more than usual: not at all 9. Thoughts that you would be better off or of hurting yourself in some way: not at all Total score: 2 Depression Screening Interpretation: Positive Depression Screening Done: Yes [id number] - PHQ-9 Billing: Yes Source: Developed by Drs. Neil Rendon, Chayo Santos, Greg Lopez and colleagues, with an educational benito from [employer]. Thrive Questionnaire Date Thrive assessed: 09/27/24 I am a: Patient What is your living situation today?: I have a steady place to live Within the past 12 months, did the food you bought not last and you didn't have the money to get more?: Never true Within the past 12 months, did you worry whether your food would run out before you got money to buy more?: Never true Do you have trouble paying for medicines?: No Do you have trouble getting transportation to medical appointments?: No Do you have trouble paying your heating and electricity bill?: No Do you have trouble taking care of your child, family member or friend?: No Do you have trouble with day-to-day activities such as bathing, preparing meals, shopping, managing finances, etc.?: No Are you currently unemployed and looking for a job?: No Are you interested in more education?: No Please select the resources that you would like help with: None Currently or been in a relationship where the following occur: No concerns reported THRIVE Score: 0 AUDIT C Alcohol Use Questionnaire (AUDIT-C) 1. How often do you have a drink containing alcohol?: 2-4 times a month 2. How many drinks containing alcohol do you have on a typical day when you are drinking?: 1 or 2 3. How often do you have six or more drinks on one occasion?: Never Total Score: 2 NURY-7 AMB Questionnaire NURY-7 Date NURY - 7 assessed: 09/27/24 Feeling nervous, anxious, or on edge: 0 = Not at all Not being able to stop or control worryin = Not at all Worrying too much about different things: 0 = Not at all Trouble relaxin = Not at all Being so restless that it is hard to sit still: 0 = Not at all Becoming easily annoyed or irritable: 0 = Not at all Feeling afraid as if something awful might happen: 0 = Not at all Total NURY-7 score (0-4 normal; 5-9 mild; 10-14 moderate; 15-21 severe): 0 Source: Developed by Drs. Neil Rendon, Chayo Santos, Greg Lopez and colleagues, with an educational benito from [employer]. NURY-7 Assessment Billing NURY-7 Assessment Tool: NURY-7 Assessment 31317 Review of Systems Const All systems reviewed & are unremarkable except as noted in HPI and below Physical exam (Primary Care) Vital Signs: Last Vital Signs Pulse 87 09/27/24 10:48 BP 110/68 09/27/24 10:48 Pulse Ox 97 09/27/24 10:48 Oxygen Delivery Method Room Air 09/27/24 10:48 BMI result Body Mass Index 20.7 Tobacco/Smoking Status: Tobacco use Status Tobacco use date assessed 09/27/24 09/27/24 10:49 Patient Tobacco Use Status Former Tobacco user 09/27/24 10:49 Tobacco use type Cigarette 09/27/24 10:49 e-Cigarette/Vaping Use Never Used 09/27/24 10:49 PHQ-9: PHQ-9 Score PHQ-9: Total score 2 09/27/24 11:39 Depression Screening Interpretation: Positive Thrive Assessment: Date of Thrive Assessment Date Thrive assessed 09/27/24 09/27/24 10:49 Currently or been in a relationship where the following occur: No concerns reported Const General: no acute distress Orientation/consciousness: patient oriented x3 Resp Effort & Inspection: normal respiratory effort and able to speak in complete sentences Auscultation: clear to auscultation bilaterally Cardio Heart sounds: S1 normal heart sound present and S2 normal heart sound present Neuro General: patient oriented x3, gait normal and moves all extremities Psych Speech and movement: Normal speech and movement present Coding Level of Care Code Est Pt Level 4 (91032) Diagnoses Seizure R56.9 Compression fracture of L2 vertebra with routine healing, subsequent encounter S32.020D Encounter type: subsequent encounter Lumbar vertebra fracture level: L2 Fracture healing: with routine healing Additional Codes NURY-7 Assessment Billing - NURY-7 Assessment Tool: NURY-7 Assessment 22756 ([id number]) PHQ-9 - 88787 - PHQ-9 Billing: Yes ([id number]) Time Spent (min) 20 Assessment & Plan Assessment & Plan (1) Seizure: Comment: 08/2024 Code(s): R56.9 - Unspecified convulsions Category: Medical Plan: Managed by Neurology. Keppra dosing increased to 1250 mg. He did see Neurology 09/20/24. (2) Compression fracture of lumbar vertebra: Code(s): S32.000A - Wedge compression fracture of unspecified lumbar vertebra, initial encounter for closed fracture Category: Medical Qualifiers: Encounter type: subsequent encounter Lumbar vertebra fracture level: L2 Fracture healing: with routine healing Qualified Code(s): S32.020D - Wedge compression fracture of second lumbar vertebra, subsequent encounter for fracture with routine healing Plan: On chronic Tramadol for pain relief. Pt worried that Tramadol could be triggering Seizures, and wants an altertive medicine for pain. Advised to resume taking Gabapentin, double the dose 300 mg to 600 mg at Bedtime. F/U with PCP.
--- OUTSIDE RECORDS SUMMARY | 2024-09-27 11:40 | XMS_ITS | Patient Health Record ---
Author Organization [facility] Address [address] [place] [address] Care Team Providers Care Utilization Management Manager Name Role Phone Po Abby QIU Primary Care Provider Neil Nguyen [phone] Allergies Allergen (clinical drug ingredient) Drug/Non Drug [...] Problem Status W/U Status Risk Notes Problem [id number] Encounter for screening for malignant neoplasm of colon (Z12.11) Active confirmed Problem [id number] Preprocedural examination (Z01.818) Active confirmed Problem [id number] Family history o f colon cancer (Z80.0) [...] N/A Encounters Encounter Location Date Provider Diagnosis [facility] [address] [place] [address] 07/24/2024 Neil Carter Abnormal upper gastrointestinal barium [...] Provider Name:Neil Carter , 10/11/2024 01:20:00 PM, [address] [place] [address] , [place], [place], [phone], Insurance Providers Payer Name Payer Address Payer Phone Subscriber Number Group Number Insured Name Patient Relationship to Insured Coverage Start Date Coverage End Date [facility] [address] [facility] [place] [phone] [id number] CECILIALUKE NAVARRO Self - patient is the insured Medical (General) History Medical History History ICD Code Screening colonoscopy [id number]--neg. except for sigmoid diverticulosis and internal hemorrhoids Denies [place],DM,CVA,Lung disease,renal dise ase Hypertension Colonoscopy 11/2014 with [...]
== END 2024-09-27 11:42 | disposition home or self-care (01) ==
LOC: HO.HMCH 10:46
PROVIDERS: PCP Internal Medicine; Visit Provider Nurse Practitioner Family
DX: R56.9 Unspecified convulsions (principal); S32.020D Wedge compression fracture of second lumbar vertebra, subsequent encounter for fracture with routine healing

== ENCOUNTER → 2024-09-27 10:46 | Outpatient (BNVA) | payer OTHER, SELFPAY | PROVIDERS: PCP Internal Medicine; Visit Provider Nurse Practitioner Family | DX: S32.020D Wedge compression fracture of second lumbar vertebra, subsequent encounter for fracture with routine healing (principal); R56.9 Unspecified convulsions; X58.XXXD Exposure to other specified factors, subsequent encounter | CPT/HCPCS: 96127 ==

== ENCOUNTER 2024-10-08 11:21 | Outpatient (AMB) | payer OTHER, SELFPAY ==
[2024-10-08 11:45] VITALS: BP 116/74; PULSE 79; O2SAT 99; BMI 21.0
--- NOTE | 2024-10-08 11:45 | A.OFFPC_ITS ---
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 Accompanied by: Spouse Allergies oxycodone [From PERCOCET] Allergy (Unknown, Verified 10/08/24 11:46) ITCHY THROAT, FEELS BAD Medication List - Last Reconciled 10/08/24 by Abby Kothari MD finasteride 5 mg PO DAILY hydrochlorothiazide 12.5 mg PO QAM levetiracetam 1,250 mg PO BID lisinopril 10 mg PO DAILY multivitamin 1 tab PO DAILY omeprazole 20 mg PO DAILY terazosin 5 mg PO BEDTIME 90 days tizanidine 4 mg PO BEDTIME PRN Tobacco use date assessed: 10/08/24 Fall risk assessment: 1 Fall in past year Last assessed Fall Risk: 10/08/24 Dental Screening Dental Screen Date: 10/08/24 Did you have a dental visit in the last 12 months?: Yes Did you have a dental problem in the last 6 months where you did not have access to dental care?: No Was dental information given to patient?: Patient has dentist [facility] Medical History CKD (chronic kidney disease) Head trauma History of fall Impaired glucose tolerance Hearing loss in left ear Facial basal cell cancer Plantar fasciitis Hypertension Vitamin D deficiency BPH (benign prostatic hyperplasia) Hypercholesterolemia Surgical History History of left inguinal hernia repair (09/22/22) History of inguinal hernia repair, bilateral History of strabismus surgery History of arthroscopic knee surgery H/O umbilical hernia repair Social History Housing: House Alcohol intake: current Comment: 3x a week 1-2 glasses of wine, Patient Tobacco Use Status: Former Tobacco user Tobacco use type: Cigarette Years Smoked: [id number] 4-5 years e-Cigarette/Vaping Use: Never Used Second Hand Smoke Exposure: No service: No Current occupational status: retired Cognitive needs: No Hearing needs: No Vision needs: Yes Questionnaire PHQ-9 Over the last 2 weeks, how often have you been bothered by any of the following problems? 1. Little interest or pleasure in doing things: not at all 2. Feeling down, depressed, or hopeless: not at all 3. Trouble falling or staying asleep, or sleeping too much: several days 4. Feeling tired or having little energy: several days 5. Poor appetite or overeating: not at all 6. Feeling bad about yourself - or that you are a failure or have let yourself or your family down: not at all 7. Trouble concentrating on things, such as reading the newspaper or watching television: not at all 8. Moving or speaking so slowly that other people could have noticed. Or the opposite - being so fidgety or restless that you have been moving around a lot more than usual: not at all 9. Thoughts that you would be better off or of hurting yourself in some way: not at all Total score: 2 Source: Developed by Drs. Neil Rendon, Chayo Santos, Greg Lopez and colleagues, with an educational benito from [employer]. Thrive Questionnaire Date Thrive assessed: 10/08/24 I am a: Patient What is your living situation today?: I have a steady place to live Within the past 12 months, did the food you bought not last and you didn't have the money to get more?: Never true Within the past 12 months, did you worry whether your food would run out before you got money to buy more?: Never true Do you have trouble paying for medicines?: No Do you have trouble getting transportation to medical appointments?: No Do you have trouble paying your heating and electricity bill?: No Do you have trouble taking care of your child, family member or friend?: No Do you have trouble with day-to-day activities such as bathing, preparing meals, shopping, managing finances, etc.?: No Are you currently unemployed and looking for a job?: No Are you interested in more education?: No Please select the resources that you would like help with: None Currently or been in a relationship where the following occur: No concerns reported THRIVE Score: 0 AUDIT C Alcohol Use Questionnaire (AUDIT-C) 1. How often do you have a drink containing alcohol?: 2-4 times a month 2. How many drinks containing alcohol do you have on a typical day when you are drinking?: 1 or 2 3. How often do you have six or more drinks on one occasion?: Never Total Score: 2 NURY-7 AMB Questionnaire NURY-7 Date NURY - 7 assessed: 10/08/24 Feeling nervous, anxious, or on edge: 0 = Not at all Not being able to stop or control worryin = Not at all Worrying too much about different things: 0 = Not at all Trouble relaxin = Not at all Being so restless that it is hard to sit still: 0 = Not at all Becoming easily annoyed or irritable: 0 = Not at all Feeling afraid as if something awful might happen: 0 = Not at all Total NURY-7 score (0-4 normal; 5-9 mild; 10-14 moderate; 15-21 severe): 0 Source: Developed by Drs. Neil Rendon, Chayo Santos, Greg Lopez and colleagues, with an educational benito from [employer]. NURY-7 Assessment Billing NURY-7 Assessment Tool: NURY-7 Assessment 42471 Physical exam (Primary Care) Vital Signs: Last Vital Signs Pulse 79 10/08/24 11:45 BP 116/74 10/08/24 11:45 Pulse Ox 99 10/08/24 11:45 Oxygen Delivery Method Room Air 10/08/24 11:45 BMI result Body Mass Index 21.0 Tobacco/Smoking Status: Tobacco use Status Tobacco use date assessed 10/08/24 10/08/24 11:49 Patient Tobacco Use Status Former Tobacco user 10/08/24 11:49 Tobacco use type Cigarette 10/08/24 11:49 e-Cigarette/Vaping Use Never Used 10/08/24 11:49 PHQ-9: PHQ-9 Score PHQ-9: Total score 2 10/08/24 11:59 Thrive Assessment: Date of Thrive Assessment Date Thrive assessed 10/08/24 10/08/24 11:49 Currently or been in a relationship where the following occur: No concerns reported Const General: alert; No acute distress Eyes Conjunctivae: conjunctivae normal Resp Auscultation: clear to auscultation bilaterally Cardio Rate: regular rate Rhythm: regular rhythm GI Inspection: Yes normal to inspection Extrem General: Yes normal to inspection and No edema Coding Level of Care Code Est Pt Level 4 (27650) Complex EM visit Add On G2211 Diagnoses Enlarged prostate N40.0 Seizure R56.9 Colon cancer screening Z12.11 Compression fracture of L2 vertebra with routine healing, subsequent encounter S32.020D Encounter type: subsequent encounter Fracture healing: with routine healing Lumbar vertebra fracture level: L2 Chest pain R07.9 Additional Codes NURY-7 Assessment Billing - NURY-7 Assessment Tool: NURY-7 Assessment 24741 ([id number]) Assessment & Plan Assessment & Plan (1) Enlarged prostate: Code(s): N40.0 - Benign prostatic hyperplasia without lower urinary tract symptoms Category: Medical Plan: Patient is being followed up by Urology on finasteride and terazosin (2) Seizure: Comment: 08/2024 Code(s): R56.9 - Unspecified convulsions Category: Medical Plan: Patient is seeing Neurology and on Keppra 1250 mg twice a day (3) Colon cancer screening: Code(s): Z12.11 - Encounter for screening for malignant neoplasm of colon Category: Medical (4) Compression fracture of lumbar vertebra: Code(s): S32.000A - Wedge compression fracture of unspecified lumbar vertebra, initial encounter for closed fracture Category: Medical Qualifiers: Encounter type: subsequent encounter Fracture healing: with routine healing Lumbar vertebra fracture level: L2 Qualified Code(s): S32.020D - Wedge compression fracture of second lumbar vertebra, subsequent encounter for fracture with routine healing Plan: Tramadol taken off due to risk of seizures (5) Chest pain: Code(s): R07.9 - Chest pain, unspecified Category: Medical Plan History of Present Illness The patient is a 69-year-old male presenting for follow-up after sustaining multiple fractures from a fall. The patient has a history of hypercholesterolemia, hypertension, benign prostatic hyperplasia, and impaired glucose tolerance. He also has osteoarthritis of the knee and an inguinal hernia. The patient experienced a fall resulting in multiple fractures, including ribs, iliac crest, pelvic, and lumbar fractures. He reports left lower chest pain and lumbar compression fracture pain, which have persisted since the accident. The patient has a seizure disorder and was admitted to the hospital for seizures. He is currently on Keppra, which was increased to 1250 mg, and has been advised to stop tramadol due to the risk of seizures. The patient is on gabapentin for pain, but reports minimal relief. He has been using tramadol at night to help with sleep due to pain from the fractures, but is open to trying a different medication. The patient has been advised to undergo colon cancer screening with Cologuard, with the last test being in December 2019. He has a scheduled colonoscopy next month with gastroenterology. Health Maintenance - Colon cancer screening with Cologuard advised, last test in December 2019 - Scheduled colonoscopy with gastroenterology next month Social History Review of Systems - Musculoskeletal: Reports left lower chest pain and lumbar compression fracture pain - Neurological: Reports seizure disorder, currently on Keppra - Gastrointestinal: Denies recent colon cancer screening since December 2019 Physical Exam Results - Labs: Mild anemia with hemoglobin of 13, mild electrolyte abnormalities, renal function elevated at 1.22, blood sugar mildly elevated with normal hemoglobin A1c, liver function normal, cholesterol levels very good Plan The patient will continue on Keppra for seizure management, with the dosage increased to 1250 mg twice daily. Tramadol has been discontinued due to the risk of seizures, and alternative pain management options will be explored. For the management of benign prostatic hyperplasia, the patient is on terazosin and finasteride, and will continue follow-up with urology. The patient is advised to undergo colon cancer screening with Cologuard, and a colonoscopy is scheduled for next month. The patient is on gabapentin for pain management, but reports minimal relief, and alternative medications will be considered. Patient was informed and verbally consented to the use of an ambient scribe for clinic note documentation during this visit. Discussion Notes I discussed with the patient the importance of continuing Keppra for seizure control and the need to discontinue tramadol due to its seizure risk. We talked about exploring alternative pain management options and the upcoming colonoscopy for preventative care. Patient Instructions - Continue taking Keppra as prescribed for seizure management. - Discontinue tramadol due to seizure risk. - Follow up with urology for BPH management. - Attend scheduled colonoscopy next month for colon cancer screening. - Discuss alternative pain management options with your healthcare provider. Orders: Orders XR ribs BI min 4V w CXR1V Today S32.020D - Wedge compression fracture of second lumbar vertebra, subsequent encounter for fracture with routine healing Medications: New tizanidine 4 mg PO BEDTIME PRN 30 tabs 1RF muscle spasticity S32.020D - Wedge compression fracture of second lumbar vertebra, subsequent encounter for f racture with routine healing Discontinued tramadol Discontinued Reason: Doctor's Order 50 mg PO BEDTIME 30 tabs 0RF S32.020D - Wedge compression fracture of second lumbar vertebra, subsequent encounter for fracture with routine healing
--- OUTSIDE RECORDS SUMMARY | 2024-10-08 13:21 | XMS_ITS | Patient Health Record ---
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 Name Role Phone Po Abby QIU Primary Care Provider Neil Nguyen [phone] Allergies Allergen (clinical drug ingredient) Drug/Non Drug [...] Problem Status W/U Status Risk Notes Problem [id number] Encounter for screening for malignant neoplasm of colon (Z12.11) Active confirmed Problem [id number] Preprocedural examination (Z01.818) Active confirmed Problem 302596283 Family history o f colon cancer (Z80.0) [...] N/A Encounters Encounter Location Date Provider Diagnosis [facility] [address] [place] [address] 07/24/2024 Neil Carter Abnormal upper gastrointestinal barium [...] Provider Name:Neil Carter , 10/11/2024 01:20:00 PM, [address] [place] [address] , [place], [place], [phone], Insurance Providers Payer Name Payer Address Payer Phone Subscriber Number Group Number Insured Name Patient Relationship to Insured Coverage Start Date Coverage End Date [facility] [address] [facility] [place] [id number] CECILIALUKE NAVARRO Self - patient is the insured Medical (General) History Medical History History ICD Code Screening colonoscopy [id number] [id number]--neg. except for sigmoid diverticulosis and internal hemorrhoids Denies [place],DM,CVA,Lung disease,renal dise ase Hypertension Colonoscopy 11/2014 with [...]
== END 2024-10-08 12:22 | disposition home or self-care (01) ==
LOC: HO.HMCH 11:42
PROVIDERS: PCP Internal Medicine; Visit Provider Internal Medicine
DX: N40.0 Benign prostatic hyperplasia without lower urinary tract symptoms (principal); R56.9 Unspecified convulsions; Z12.11 Encounter for screening for malignant neoplasm of colon; S32.020D Wedge compression fracture of second lumbar vertebra, subsequent encounter for fracture with routine healing; R07.9 Chest pain, unspecified

== ENCOUNTER → 2024-10-08 11:21 | Outpatient (BNVA) | payer OTHER, SELFPAY | PROVIDERS: PCP Internal Medicine; Visit Provider Internal Medicine | DX: N40.0 Benign prostatic hyperplasia without lower urinary tract symptoms (principal); R56.9 Unspecified convulsions; R07.9 Chest pain, unspecified; E78.00 Pure hypercholesterolemia, unspecified; I10 Essential (primary) hypertension; R73.01 Impaired fasting glucose; M17.10 Unilateral primary osteoarthritis, unspecified knee; K40.90 Unilateral inguinal hernia, without obstruction or gangrene, not specified as recurrent; S32.020D Wedge compression fracture of second lumbar vertebra, subsequent encounter for fracture with routine healing; X58.XXXD Exposure to other specified factors, subsequent encounter; Z91.81 History of falling | CPT/HCPCS: 96127 ==

== ENCOUNTER 2024-10-11 11:48 | Day surgery (SDC) | payer OTHER, SELFPAY ==
--- OUTSIDE RECORDS SUMMARY | 2024-09-12 13:24 | XMS_ITS | Patient Health Record ---
Author Organization [facility] Address [address] [place] [address] Care Team Providers Care Bureau Chief Name Role Phone Po Abby QIU Primary Care Provider Neil Nguyen [phone] Allergies Allergen (clinical drug ingredient) Drug/Non Drug [...] Problem Status W/U Status Risk Notes Problem [id number] Encounter for screening for malignant neoplasm of colon (Z12.11) Active confirmed Problem [id number] Preprocedural examination (Z01.818) Active confirmed Problem 568565271 Family history o f colon cancer (Z80.0) [...] N/A Encounters Encounter Location Date Provider Diagnosis [facility] [address] [place] [address] 07/24/2024 Neil Carter Abnormal upper gastrointestinal barium series R93.3 ; Colon cancer screening Z12.11 and Family history of colon cancer Z80.0 Assessments Encounter Date Diagnosis (ICD Code) Assessment Notes Treatment Notes Treatment Clinical Notes Section Notes 07/24/2024 Colon cancer screening (ICD-10 - Z12.11) with MAC Do not take the Hydrochlorothiaizide the day before or on the day of the procedures .Overall, uLke appears quite well. I did recommend a [...] Provider Name:Neil Carter , 10/11/2024 01:20:00 PM, [address] [place] [address] , [place], [place], [phone], Insurance Providers Payer Name Payer Address Payer Phone Subscriber Number Group Number Insured Name Patient Relationship to Insured Coverage Start Date Coverage End Date [facility] [address] [facility] [place] [phone] [id number] CECILIALUKE NAVARRO Self - patient is the insured Medical (General) History Medical History History ICD Code Screening colonoscopy [phone]--neg. except for sigmoid diverticulosis and internal hemorrhoids Denies MA,DM,CVA,Lung disease,renal dise ase Hypertension Colonoscopy 11/2014 with [...]
--- NOTE | 2024-10-09 14:37 | HO.ANESPROP2 ---
Documented by User: Radha Russo NP 10/09/24 14:42 HPI - Anesthesia Eval Consult details Narrative: 69yo M for Upper Endoscopy and Colonoscopy Seizures - recent increase in Keppra for breakthrough seizures Fall with multiple fractures 09/2023 [facility] Active Problems Active Problems: All Active Problems Chest pain (Acute) Feeling of incomplete bladder emptying (Acute) Nocturia (Acute) Enlarged prostate (Acute) Lower urinary tract symptoms (Acute) Renal insufficiency (Acute) Colon cancer screening (Acute) Seizure (Acute) Gastric ulcer (Acute) Seizure-like activity (Acute) Dysphagia (Acute) Head trauma (Acute) Dizziness (Acute) Weight loss (Acute) Compression fracture of lumbar vertebra (Acute) Pelvic fracture (Acute) Fracture of iliac crest (Acute) Right rib fracture (Acute) History of inguinal hernia repair, bilateral (Acute) Chronic pain syndrome (Acute) Inguinodynia (Acute) Recurrent left inguinal hernia (Acute) Facial abrasion (Acute) Right groin pain (Acute) Recurrent inguinal hernia (Acute) Right inguinal hernia (Acute) Left inguinal hernia (Acute) CMC arthritis (Acute) Bilateral primary osteoarthritis of knee (Acute) Elbow pain, left (Acute) Shoulder pain, left (Acute) Annual physical exam (Acute) Impaired glucose tolerance (Acute) Hypertension (Acute) Vitamin D deficiency (Acute) BPH (benign prostatic hyperplasia) (Acute) Hypercholesterolemia (Acute) Past Medical History Medical History (Updated 10/08/24 @ 12:10 by Abby Ktohari MD) CKD (chronic kidney disease) Head trauma History of fall Impaired glucose tolerance Hearing loss in left ear Facial basal cell cancer Plantar fasciitis Hypertension Vitamin D deficiency BPH (benign prostatic hyperplasia) Hypercholesterolemia Family History Family history of problems with anesthesia: No Surgical History Surgical History (Updated 10/11/24 @ 12:12 by Génesis Tran RN) H/O colonoscopy History of left inguinal hernia repair (09/22/22) History of inguinal hernia repair, bilateral History of strabismus surgery History of arthroscopic knee surgery H/O umbilical hernia repair History of Problems with Anesthesia: No Social History Social History Housing: House Alcohol intake: current Alcohol intake frequency: holidays/special occasions only Comment: 3x a week 1-2 glasses of wine, Patient Tobacco Use Status: Former Tobacco user Tobacco use type: Cigarette Years Smoked: [id number] 4-5 years e-Cigarette/Vaping Use: Never Used Second Hand Smoke Exposure: No Have you been hit, kicked, punched, or otherwise hurt by someone within the past year? If so, by whom?: No Are you DNR?: No Advance Directives: No Advance Directives Information Provided: Yes service: No Current occupational status: retired Cognitive needs: No Hearing needs: No Vision needs: Yes Meds Allergies Allergy/AdvReac Type Severity Reaction Status Date / Time oxycodone (From PERCOCET) Allergy Unknown ITCHY Verified 10/08/24 11:46 THROAT, FEELS BAD Home Medications ?Medication ?Instructions ?Recorded ?Confirmed ?Last Taken ?Type multivitamin 1 tab PO DAILY 09/05/24 10/11/24 10/10/24 History levetiracetam 1,000 mg tablet 1,250 mg PO BID 09/27/24 10/11/24 10/11/24 History Assessment and Plan Assessment Anesthesia Assessment: Chart Reviewed Final Anesthetic Review Family History of Problems with Anesthesia: No History of Problems with Anesthesia: No Documented by User: Royer Landrum MD 10/11/24 12:28 [facility] Past Medical History Medical History (Updated 10/08/24 @ 12:10 by Abby Kothari MD) CKD (chronic kidney disease) Head trauma History of fall Impaired glucose tolerance Hearing loss in left ear Facial basal cell cancer Plantar fasciitis Hypertension Vitamin D deficiency BPH (benign prostatic hyperplasia) Hypercholesterolemia Cognitive capacity: normal Functional capacity: independent ambulation Surgical History Surgical History (Updated 10/11/24 @ 12:12 by Génesis Tran RN) H/O colonoscopy History of left inguinal hernia repair (09/22/22) History of inguinal hernia repair, bilateral History of strabismus surgery History of arthroscopic knee surgery H/O umbilical hernia repair Social History Social History Housing: House Alcohol intake: current Alcohol intake frequency: holidays/special occasions only Comment: 3x a week 1-2 glasses of wine, Patient Tobacco Use Status: Former Tobacco user Tobacco use type: Cigarette Years Smoked: [id number] 4-5 years e-Cigarette/Vaping Use: Never Used Second Hand Smoke Exposure: No Have you been hit, kicked, punched, or otherwise hurt by someone within the past year? If so, by whom?: No Are you DNR?: No Advance Directives: No Advance Directives Information Provided: Yes service: No Current occupational status: retired Cognitive needs: No Hearing needs: No Vision needs: Yes Meds Allergies Allergy/AdvReac Type Severity Reaction Status Date / Time oxycodone (From PERCOCET) Allergy Unknown ITCHY Verified 10/08/24 11:46 THROAT, FEELS BAD Home Medications ?Medication ?Instructions ?Recorded ?Confirmed ?Last Taken ?Type multivitamin 1 tab PO DAILY 09/05/24 10/11/24 10/10/24 History levetiracetam 1,000 mg tablet 1,250 mg PO BID 09/27/24 10/11/24 10/11/24 History Exam Exam Date and Time: 10/11/2024 Height,Weight and Vital Signs: 6foot 3 inches tall. weighs 160 lbs Airway TM Dist: >3cm Neck ROM: Full Loose/Missing/Broken Teeth: No Heart: rrr Lungs: cta Other: normal cognition Assessment and Plan Final Anesthetic Review NPO: Yes ASA Class: II Final Preanesthetic Review: No Changes in Pt Med Stat, Meds/Allgs Chart Reviewed, Consent Obtained/Reviewed and Anes Risks/Benef Reviewed Patient Risk: Low Procedure Risk: Low Anesthetic Plan Anesthetic Plan: MAC: and Agree w/ Assess. and Plan (mac anesthesia) Disposition: Standard PACU
[2024-10-11 06:11] VITALS: BMI 20.9
[2024-10-11 11:59] VITALS: BP 110/65; PULSE 88; RESP 20; TEMP 36.9; O2SAT 98
[2024-10-11] MEDS: Lactated Ringers 1,000 ML 100 ML IVCONT (12:05)
[2024-10-11 13:36] VITALS: BP 89/56; PULSE 68; RESP 16; TEMP 36.1; O2SAT 99
--- NOTE | 2024-10-11 13:41 | P.BOP_ITS ---
Brief Operative Note Date of Service: 10/11/24 Pre-op diagnosis: Abnormal UGI, Screening Post-op diagnosis: other (Hiatal hernia, Gastritis, Diverticulosis) Procedure: EGD with bx, Colonoscopy to the cecum and TI Surgeon: Neil Carter MD Anesthesia: MAC Was an Buyer Planner used for this Procedure?: No Estimated blood loss (mL): 2.0 Pathology: other (A. Descending duodenum, ? Lipoma B. Gastric antrum) Condition: stable Disposition: PACU
[2024-10-11 13:56] VITALS: BP 96/53; PULSE 63; RESP 18; TEMP 36.1; O2SAT 100
--- NOTE | 2024-10-11 14:28 | OP_ITS ---
DATE OF SERVICE: 10/11/2024 SURGEON: Neil Carter MD INDICATIONS: The patient presents for evaluation ofan abnormal upper GI series, family history of colon cancer, and colorectal cancer screening. Full consent has been obtained from him for this, including risks of bleeding and perforation. PREOPERATIVE DIAGNOSIS: POSTOPERATIVE DIAGNOSIS: Abnormal GI series, colorectal cancer screening, family history of colon cancer, small hiatal hernia, mild gastritis, duodenal lipoma, diverticulosis and internal hemorrhoids. PROCEDURE PERFORMED: Esophagogastroduodenoscopy with biopsies, and colonoscopy to the cecum and terminal ileum. ESTIMATED BLOOD LOSS: COMPLICATIONS: ANESTHESIA: Medication used, monitored anesthesia care. ASSISTANTS: SPECIMENS: PREOPERATIVE DIAGNOSES: Abnormal GI series, colorectal cancer screening. Family history of colon cancer. DESCRIPTION OF PROCEDURE: The patient was placed in the left lateral decubitus position. The Olympus video gastroscope was passed in the posterior oropharynx and upper esophagus under direct vision. The scope was passed slowly to the distal esophagus. The gastroesophageal junction appeared normal at 36 cm. There was no sign of any esophagitis nor Todd's mucosa. There was a small hiatal hernia. The scope was advanced to the pylorus and the duodenum was cannulated to the descending portion. The duodenum including the bulb was carefully inspected and appeared normal other than what appeared to be a lipoma in the 2nd portion of the duodenum, which was biopsied twice. The overlying mucosa appeared normal. It was quite soft. The scope was then withdrawn back to the stomach. The gastric antrum had some slight changes of gastritis with edema and erythema but no erosions or ulcerations. There was good peristalsis. Biopsies were obtained from the antrum. The scope was retroflexed visualizing the proximal stomach carefully, which appeared normal, without any sign of mass or ulceration. The scope was straightened and withdrawn back to the esophagus. The esophageal mucosa appeared normal. Scope was withdrawn from the patient. He was turned around for the colonoscopy. The digital rectal exam revealed no abnormalities. The Olympus video pediatric colonoscope was entered into the rectum and advanced easily to the cecum. Once in the cecum, I did identify normal-appearing cecal pouch with appendiceal orifice and a normal-appearing ileocecal valve. The entire cecum appeared normal. The terminal ileum was cannulated and appeared normal. The scope was withdrawn back in the colon. The scope was then slowly withdrawn assessing all mucosal surfaces carefully. Preparation was excellent. I did not visualize any sign of polyps, colitis, nor angiodysplasia. There was a mild amount of diverticulosis in the transverse colon and a moderate amount of diverticulosis in the sigmoid and descending colon. In the rectum, scope was retroflexed visualizing internal hemorrhoids, but no other pathology. The rectal mucosa appeared normal. The scope was straightened and withdrawn from the patient. He tolerated both procedures well and was returned to recovery area in stable condition. IMPRESSION: 1. Mild gastritis. 2. Duodenal lipoma. 3. Hiatal hernia. 4. Diverticulosis. 5. Internal hemorrhoids. PLAN: The results of the pathology will be checked. I would recommend a repeat colonoscopy in 5 years for further screening given his family history of colon cancer in his brother. He has been on omeprazole but at this point I think he can stop that since he was not having any particular symptoms of reflux or other significant upper GI complaints and the scope today did not show any significant findings. He was advised not to use any aspirin and NSAIDs for 1 week. MD MARISA Michael/LETTY / [id number] MTDD
== END 2024-10-11 14:16 | disposition home or self-care (01) ==
PROVIDERS: PCP Internal Medicine; Visit Provider Internal Medicine
PROC: (CPT 45378; principal; 2024-10-11 12:20)
DX: Z12.11 Encounter for screening for malignant neoplasm of colon (principal); K57.30 Diverticulosis of large intestine without perforation or abscess without bleeding; K64.8 Other hemorrhoids; Z80.0 Family history of malignant neoplasm of digestive organs; R93.3 Abnormal findings on diagnostic imaging of other parts of digestive tract; K29.60 Other gastritis without bleeding; D17.5 Benign lipomatous neoplasm of intra-abdominal organs; K31.89 Other diseases of stomach and duodenum; K44.9 Diaphragmatic hernia without obstruction or gangrene; I10 Essential (primary) hypertension; Z79.899 Other long term (current) drug therapy
CPT/HCPCS: 45378; 43239; 88305; 88313; 88342; J2704; J3010

== ENCOUNTER 2024-10-21 11:57 | Outpatient (REF) | payer OTHER, SELFPAY ==
--- OUTSIDE RECORDS SUMMARY | 2024-10-11 09:20 | XMS_ITS ---
Author Organization [facility] Address [address] [place] [id number] Care Team Providers Care Traffic Sign Supervisor Name Role Phone Po Abby QIU Primary Care Provider Neil Nguyen [phone] REASON FOR VISIT screening,fam hx colon ca,abnormal gi barium series Encounters Encounter Location Date Provider Diagnosis [facility] [place] [address], [place] [id number] 10/11/2024 Neil Carter Colon cancer scree teodoro [...] Information Progress Notes * LUKE MORALES JrDOB:[birth year] (69 yo M)Acc No.[id number]:10/11/2024 EGD and COL/MAC Patient: LUKE JOSE Jr Provider: Jerrica Carter MD :1955 A ge:69 Y S ex:Male Date:10/11/2024 Address:[place] [address] Pcp:Abby Kothari MD Subjective: * Chief Complaints: [...] FLW-UP 10 YRS DOCD, Modifiers: 1P , 20523 UPPER GI ENDOSCOPY, BIOPSY * * The named appointment provid er may or may not be the originator of this progress note, and it is not deemed complete until electronically signed by the appointment provider. Sign off status: Pending * Provider: Jerrica Carter MD Date: 0 10/11/2024 Generated for Sundeep amor/Charlette/eTransmitting on: 10/21/2024 12:39 PM EDT
--- NOTE | ~2024-10-21 | XR_ITS ---
EXAMINATION: XR RIBS 4 VIEWS BILATERAL WITH PA CHEST HISTORY: S32.020D - Wedge compression fracture of second lumbar vertebra COMPARISON: Correlation is made with a PA view of the chest and views of the right ribs dated 09/11/2016. FINDINGS: Two PA views of the chest and 4 additional views of the bilateral ribs are submitted. The lungs are expanded and clear. There is no pleural effusion, pneumothorax, or pulmonary vascular congestion. The heart is normal in size. There is an old healed fracture of the right 11th rib. No acute fracture of the bilateral ribs is seen. XR/XR ribs BI min 4V w CXR1V IMPRESSION: No evidence of acute fracture of the bilateral ribs. Electronically signed by: Neil Durham MD 10/21/2024 12:50 PM EDT
== END 2024-10-21 11:58 | disposition home or self-care (01) ==
LOC: HO.XRAY 11:57
PROVIDERS: PCP Internal Medicine; Visit Provider Internal Medicine
DX: S32.020D Wedge compression fracture of second lumbar vertebra, subsequent encounter for fracture with routine healing (principal)
CPT/HCPCS: 71111

== ENCOUNTER → 2024-10-21 12:04 | Outpatient (BNV) | payer OTHER, SELFPAY | PROVIDERS: PCP Internal Medicine; Visit Provider Radiology Diagnostic Radiology | DX: S32.020D Wedge compression fracture of second lumbar vertebra, subsequent encounter for fracture with routine healing (principal) | CPT/HCPCS: 71111 ==

== ENCOUNTER 2025-01-10 11:18 | Outpatient (AMB) | payer OTHER, SELFPAY ==
--- OUTSIDE RECORDS SUMMARY | 2023-02-03 08:42 | XMS_ITS | Encounter Summary ---
Author Organization [facility] Address [address] [place] [phone] Phone Care Team Providers Care Lay Midwife Name Role Phone Abby Kothari MD Primary Care Provider [phone] Encounter Details Date Type Department Care Team ([facility] Contact Info) Description 02/03/2023 8:42 AM EDT Hospital Encounter [facility] Ur[facility] [address] [place] [phone] Lasha Leung, UPHOLSTERED GOODS CRAFTER [address] [place] [address] [email or web address] Social History Tobacco Use Types Packs/Day Years [...] on filedocumented in this encounter Care Teams Lay Midwife Relationship Specialty Start Date End Date Abby Kothari MD [address] [place] [id number] PCP - General Internal Medicine 02/03/23 documented as of this encounter Additional Source Comments The information contained in this document represents components of the legal health record. It is not the complete legal health record.[facility]
--- NOTE | 2025-01-10 11:30 | MHC.PC.OV ---
Vital Signs 01/10/25 11:32 Height 6 ft 2 in Weight 172 lb 2 oz BMI 22.1 BP 120/62 Blood Pressure Location Lt brachial Position Sitting Pulse 83 Pulse Source Pulse Oximeter Temp 97.1 F Temp Source Temporal Artery Scan Pulse Oximetry (%) 93 Oxygen Delivery Method Room Air Intake Visit Reasons: 3 Months follow up Intake Note: Patient is here to follow up on Chronic pain syndrome, BPH, Hypercholesterolemia. Melt House Supervisor Required: No Drilling Engineering Manager: Not Required per policy Accompanied by: Self / Same As Patient Allergies oxycodone (From PERCOCET) Allergy (Unknown, Verified 01/10/25 11:32) ITCHY THROAT, FEELS BAD Tobacco use date assessed: 01/10/25 Fall risk assessment: No Falls in past year Last assessed Fall Risk: 01/10/25 Dental Screening Dental Screen Date: 10/08/24 HPI HPI Comments History of Present Illness Details The patient is a 70-year-old male presenting with a follow-up for previously discussed medical conditions. The patient has a history of benign prostatic hyperplasia. He is currently on medication and has a follow-up appointment with a urologist scheduled for March 10. The patient also has a history of epilepsy and is under the care of a neurologist. He is currently taking Keppra for seizure management. The patient reports a history of vertebral compression fractures, with eight fractures noted. He experiences nocturnal back pain, which disrupts his sleep, and has tried various medications including tizanidine and gabapentin, with limited relief. The patient has been experiencing sleep disturbances, primarily due to back pain and discomfort at night. He has tried multiple interventions, including melatonin and Zzzquil, with minimal success. The patient also reports osteoarthritis, which affects his shoulders and knees, and is considering cortisone injections for relief. [facility] Medical History (Updated 01/10/25 @ 12:06 by Mickey Webber MD) CKD (chronic kidney disease) Head trauma History of fall Impaired glucose tolerance Hearing loss in left ear Facial basal cell cancer Plantar fasciitis Hypertension Vitamin D deficiency BPH (benign prostatic hyperplasia) Hypercholesterolemia Surgical History H/O colonoscopy History of left inguinal hernia repair (09/22/22) History of inguinal hernia repair, bilateral History of strabismus surgery History of arthroscopic knee surgery H/O umbilical hernia repair Social History Housing: House Alcohol intake: current Alcohol intake frequency: holidays/special occasions only Comment: 3x a week 1-2 glasses of wine, Patient Tobacco Use Status: Former Tobacco user Tobacco use type: Cigarette Years Smoked: [id number] 4-5 years e-Cigarette/Vaping Use: Never Used Second Hand Smoke Exposure: Yes service: No Current occupational status: retired Cognitive needs: No Hearing needs: No Vision needs: Yes Questionnaire Thrive Questionnaire Date Thrive assessed: 06/27/24 I am a: Patient What is your living situation today?: I have a steady place to live Within the past 12 months, did the food you bought not last and you didn't have the money to get more?: Never true Within the past 12 months, did you worry whether your food would run out before you got money to buy more?: Never true Do you have trouble paying for medicines?: No Do you have trouble getting transportation to medical appointments?: No Do you have trouble paying your heating and electricity bill?: No Do you have trouble taking care of your child, family member or friend?: No Do you have trouble with day-to-day activities such as bathing, preparing meals, shopping, managing finances, etc.?: No Are you currently unemployed and looking for a job?: No Are you interested in more education?: No Please select the resources that you would like help with: None Currently or been in a relationship where the following occur: No concerns reported THRIVE Score: 0 NURY-7 AMB Questionnaire NURY-7 Date NURY - 7 assessed: 10/08/24 Source: Developed by Drs. Neil Rendon, Chayo Santos, Greg Lopez and colleagues, with an educational benito from [employer]. Review of Systems Const Details: Positives besides what was mentioned in HPI are in BOLD Constitutional: No Weight Change, No Fever, No Chills, No Night Sweats, No Fatigue, No Malaise ENT/Mouth: No Hearing Changes, No Ear Pain, No Nasal Congestion, No Sinus Pain, No Hoarseness, No sore throat, No Rhinorrhea, No Swallowing Difficulty Eyes: No Eye Pain, No Swelling, No Redness, No Foreign Body, No Discharge, No Vision Changes Cardiovascular: No Chest Pain, No SOB, No PND, No Dyspnea on Exertion, No Orthopnea, No Claudication, No Edema, No Palpitations Respiratory: No Cough, No Sputum, No Wheezing, No Smoke Exposure, No Dyspnea Gastrointestinal: No Nausea, No Vomiting, No Diarrhea, No Constipation, No Pain, No Heartburn, No Anorexia, No Dysphagia, No Hematochezia, No Melena, No Flatulence, No Jaundice Genitourinary: No Dysmenorrhea, No DUB, No Dyspareunia, No Dysuria, No Urinary Frequency, No Hematuria, No Urinary Incontinence, No Urgency, No Flank Pain, No Urinary Flow Changes, No Hesitancy Musculoskeletal: No Arthralgias, No Myalgias, No Joint Swelling, No Joint Stiffness, No Back Pain, No Neck Pain, No Injury History Skin: No Skin Lesions, No Pruritis, No Hair Changes, No Breast/Skin Changes, No Nipple Discharge Neuro: No Weakness, No Numbness, No Paresthesias, No Loss of Consciousness, No Syncope, No Dizziness, No Headache, No Coordination Changes, No Recent Falls Psych: No Anxiety/Panic, No Depression, No Insomnia, No Personality Changes, No Delusions, No Rumination, No SI/HI/AH/VH, No Social Issues, No Memory Changes, No Violence/Abuse Hx., No Eating Concerns Heme/Lymph: No Bruising, No Bleeding, No Transfusions History, No Lymphadenopathy Endocrine: No Polyuria, No Polydipsia, No Temperature Intolerance Physical exam (Primary Care) Vital Signs: Last Vital Signs Temp 97.1 F 01/10/25 11:32 Pulse 83 01/10/25 11:32 BP 120/62 01/10/25 11:32 Pulse Ox 93 01/10/25 11:32 Oxygen Delivery Method Room Air 01/10/25 11:32 BMI result Body Mass Index 22.1 Tobacco/Smoking Status: Tobacco use Status Tobacco use date assessed 01/10/25 01/10/25 11:37 Patient Tobacco Use Status Former Tobacco user 01/10/25 11:37 Tobacco use type Cigarette 01/10/25 11:37 e-Cigarette/Vaping Use Never Used 01/10/25 11:37 Thrive Assessment: Date of Thrive Assessment Date Thrive assessed 06/27/24 01/10/25 11:37 Currently or been in a relationship where the following occur: No concerns reported Const Other: Pertinent findings are in BOLD GENERAL APPEARANCE NAD, activity normal for age, well developed/ well nourished, no cyanosis, pallor, or diaphoresis. EYES lids/conjunctiva normal. EARS/NOSE/THROAT Mucous membranes moist, nares normal, lips/teeth normal uvula midline without oral pharyngeal erythema, exudate or swelling TMs normal bilaterally. No lymphangitis/lymphedema. HEAD/NECK normocephalic atraumatic, no facial trauma, neck is supple. RESPIRATORY respiratory effort normal, speaks in full sentences, no tripod position, no accessory muscle use. Lungs clear to auscultation without rhonchi, wheezes, rales CARDIAC Regular rate and rhythm, no edema. ABDOMINAL Soft, ND/NT. No evidence of fluid wave. No pulsatile masses on exam, rebound tenderness, North sign or pain over Mcburney's point. MUSCLES/EXTREMITIES No abnormal range of motion, no swelling. SKIN Warm, pink and dry. No rashes, dermatoses, petechiae or lesions. NEUROLOGICAL Speech is clear and appropriate. Normal level of consciousness. Gait and coordination are normal. 5/5 strength in all extremities. PSYCH Normal mood and affect. Judgement/competence is appropriate Coding Level of Care Code Est Pt Level 4 (10460) Diagnoses Benign prostatic hyperplasia with urinary frequency N40.1; R35.0 Lower urinary tract symptom presence: symptoms present Lower urinary tract symptom detail: urinary frequency Insomnia G47.00 Back pain M54.9 Seizure-like activity R56.9 Time Spent (min) 30 Assessment & Plan Assessment & Plan (1) BPH (benign prostatic hyperplasia): Comment: 2017 cc Code(s): N40.0 - Benign prostatic hyperplasia without lower urinary tract symptoms Category: Medical Qualifiers: Lower urinary tract symptom presence: symptoms present Lower urinary tract symptom detail: urinary frequency Qualified Code(s): N40.1 - Benign prostatic hyperplasia with lower urinary tract symptoms; R35.0 - Frequency of micturition Plan: Follows with Urology. Continue current medications with fenasteride and Terazosin. (2) Insomnia: Code(s): G47.00 - Insomnia, unspecified Category: Medical Plan: Patient will start CPAP. Most likely 2/2 back pain. See below for management of BAck pain. (3) Back pain: Code(s): M54.9 - Dorsalgia, unspecified Category: Medical Plan: Tizanidine dose increased to 6 mg. Advised patient to check with his neurologist in [place] he can start Cyclobenzaprine since some literatture reported it might reduce seizure threshold. (4) Seizure-like activity: Comment: EEG done 05/20/2024 abnormal potentially epileptogenic activity focal intermittent slowing left temporal region Code(s): R56.9 - Unspecified convulsions Category: Medical Plan: Follows with Neuro. Continue Keppra. Patient advised to check with Neurlogist about starting Cyclobenzaprine for muscle spasms. Plan I advised the patient to follow up with his urologist and neurologist to assess and adjust his treatment plans as necessary. We also discussed increasing the tizanidine dosage to manage nocturnal back pain and considering cortisone injections for osteoarthritis. The patient was informed about the potential impact of cyclobenzaprine on seizure threshold and was advised to consult with his neurologist before starting any new medication. Medications: Changed From tizanidine 4 mg PO BEDTIME PRN 30 tabs 1RF muscle spasticity S32.020D - Wedge compression fracture of second lumbar vertebra, subsequent encounter for fracture with routine healing To tizanidine 6 mg (1.5 x 4 mg) PO BEDTIME PRN 30 tabs 1RF muscle spasticity S32.020D - Wedge compression fracture of second lumbar vertebra, subsequent encounter for fracture with routine healing Refilled lisinopril 10 mg PO DAILY 90 tabs 3RF I10 - Essential (primary) hypertension
[2025-01-10 11:32] VITALS: BP 120/62; PULSE 83; TEMP 36.2; O2SAT 93; BMI 22.1
--- OUTSIDE RECORDS SUMMARY | 2025-01-10 11:58 | XMS_ITS | Clinical Summary ---
Author Organization [facility] Address [address] [place] [id number] Phone Care Team Providers Care Condenser Winder Name Role Phone Taye Abby Swan MD Primary Care Provider [phone] Allergies No known active allergies Medications amoxicillin (AMOXIL) 500 MG capsule TAKE 4 CAPSULES ONE HOUR PRIOR TO DENTAL PROCEDURE AND 1 CAPSULE THREE TIMES DAILY FOR ONE WEEK UNTIL GONE 3 Active chlorhexidine (PERIDEX) 0.12 % solution 3 Active finasteride (PROSCAR) 5 mg tablet Take 1 tablet by mouth every morning. 3 Active gabapentin (NEURONTIN) 300 MG capsule TAKE 1 CAPSULE BY MOUTH AT BEDTIME FOR PAIN 3 Active hydroCHLOROthia zide (MICROZIDE) 12.5 mg capsule Take 12.5 mg by mouth every morning. 3 Active ibuprofen (ADVIL,MOTRIN) 600 MG tablet TAKE 1 TABLET BY MOUTH 1 HOUR BEFORE DENTAL PROCEDURE THEN TAKE 1 TABLET BY MOUTH EVERY 6 HOURS NEEDED FOR PAIN 3 Active tamsulosin (FLOMAX) 0.4 mg Cap Take 1 capsule by mouth every morning. 3 Active Active Problems Problem Noted Date Diagnosed Date Hypertension 02/03/2023 Immunizations Immunization Administration Dates Next Due Influenza High-Dose Trivalen t Preservative Free IM 03/10/2019 Influenza Quadrivalent Preservative Free IM 04/24,05/11/2021,02/12/2016 Pneumococcal conjugate PCV13 03/10/2019 Pneumococcal polysaccharide PPSV23 05/20/2020 Tdap 08/22/2017 Social History Tobacco Use Types Packs/Day Years [...] AM EDT Sexual Orientation Not on file Last Filed Vital Signs Vital Sign Reading Time Taken Comments Blood Pressure 155/95 02/03/2023 8:55 AM EDT Pulse 106 02/03/2023 8:26 AM EDT Temperature 37.1 C (98.8 F) 02/03/2023 8:26 AM EDT Respiratory Rate 18 02/03/2023 8:26 AM EDT Oxygen Saturation 98% 02/03/2023 8:26 AM EDT Inhaled Oxygen Concentration - - Weight - - Height - - Body Mass Index - - Plan of Treatment Health Maintenance Due Date Last Done Comments LIPID PANEL 1954 POTASSIUM LEVEL 1954 DEPRESSION SCREENING 1966 HEPATITIS C SCREENING 01/03/1972 COLOGUARD 1999 COLONOSCOPY 1999 COLORECTAL CANCER SCREENING 1999 FIT TEST 1999 FOBT 1999 SIGMOIDOSCOPY 1999 VIRTUAL COLONOSCOPY 1999 ZOSTER VACCINES (1 of 2) 01/03/2004 BLOOD PRESSURE 08/05/2023 02/03/2023 INFLUENZA VACCINE (#1) 2024 3, 05/11/2021, 03/10/2019, Additional history exists COVID-19 VACCINE (3 season) 2024 04/19/2021, 07/29/2020 Adult Td,Tdap Booster 08/23/2027 08/22/2017 RSV VACCINE (1 - 1-dose 75+ series) 2029 PNEUMOCOCCAL VACCINES (50+ years) Completed 05/20/2020, 03/10/2019 SMOKING STATUS SCREENING (Once After 26 Yrs) Completed 02/03/2023 HEPATITIS A VACCINES Aged Out No long er eligible based on patient's age to complete this topic HIB VACCINES Aged Out No longer eligi ble based on patient's age to complete this topic MENINGOCOCCAL VACCINES (ACWY) Aged Out No longer eligible based on patient's age to complete this topic MENINGOCOCCAL VACCINES (B) Aged Out N o longer eligible based on patient's age to complete this topic Medical Devices Not on file Insurance HMO [facility] HMO Care Teams Condenser Winder Relationship Specialty Start Date End Date Abby Kothari MD [address] [place] [phone] PCP - General Internal Medicine 02/03/23 Additional Source Comments The information contained in this document represents components of the legal health record. It is not the complete legal health record.[facility]
== END 2025-01-10 11:58 | disposition home or self-care (01) ==
LOC: HO.HMCH 11:19
PROVIDERS: PCP Internal Medicine; Visit Provider Internal Medicine
DX: N40.1 Benign prostatic hyperplasia with lower urinary tract symptoms (principal); R56.9 Unspecified convulsions; R35.0 Frequency of micturition; G47.00 Insomnia, unspecified; M54.9 Dorsalgia, unspecified

== ENCOUNTER 2025-03-04 06:01 | Outpatient (REF) | payer OTHER, SELFPAY ==
--- OUTSIDE RECORDS SUMMARY | 2023-02-03 07:42 | XMS_ITS | Encounter Summary ---
Author Organization [facility] Address [address] [place] [phone] Phone Care Team Providers Care Director Hair Name Role Phone Abby Kothari MD Primary Care Provider [phone] Encounter Details Date Type Department Care Team ([facility] Contact Info) Description 02/03/2023 8:42 AM EDT Hospital Encounter [facility] [address] [place] [phone] Lasha Leung, TRIMMING CASER [address] [place] [address] [email or web address] Social History Tobacco Use Types Packs/Day Years Used Date Smoking Tobacco: Never Smokeless Tobacco: Never Education Answer Date Recorded Are you interested in more education? Not on rhona e 02/03/2023 Are you concerned about learning? Not on file 02/03/2023 No 02/03/2023 No 02/03/2023 Digital Access Answer Date Recorded No 02/03/2023 No 02/03/2023 Reliable internet access at home? Not on file 02/03/2023 Device with a working camera? Not on file Sex and Gender Information Value Date Recorded Sex Assigned at Not on file Legal Sex Male 9:57 PM EDT Gender Identity Male 01/12/2024 9:17 AM EDT Sexual Orientation Not on file documented as of this encounter Plan of Treatment Not on file documented as of this encounter Procedures Procedure Name Priority Date/Time Associated Diagnosis Comments XR RIBS 3 OR MORE VIEWS WITH PA CHEST (RIGHT) Urgent/patient waiting 02/03/2023 8:48 AM EDT Fracture of one rib, right side, initial encounter for closed fracture documented in this encounter Results * XR RIBS 3 OR MORE VIEWS WITH PA CHEST (RIGHT) (02/03/2023 8:48 AM EDT) Anatomical Region Laterality Modality Chest Computed Radiogr aphy 02/03/2023 8:56 AM EDT Impressions 02/03/2023 9:00 AM EDT Acute, nondisplaced posterior right 10th rib fracture. No focal consolidation, pleural effusion, pulmonary edema or pneumothorax. Normal cardiomediastinal silhouette. Narrative 02/03/2023 9:00 AM EDT XR RIBS 3 OR MORE VIEWS WITH PA CHEST (RIGHT) COMPARISON: None. Procedure Note Zain Freitas MD - 02/03/2023 XR RIBS 3 OR MORE VIEWS WITH PA CHEST (RIGHT) COMPARISON: None. IMPRESSION: Acute, nondisplaced posterior right 10th rib fracture. No focal consolidation, pleural effusion, pulmonary edema or pneumothorax.Normal cardiomediastinal silhouette. Lasha Leung CNP IMG XR CHEST Final Result documented in this encounter Visit Diagnoses Not on filedocumented in this encounter Care Teams Director Hair Relationship Specialty Start Date End Date Abby Kothari MD [address] [place] [id number] PCP - General Internal Medicine 02/03/23 documented as of this encounter Additional Source Comments The information contained in this document represents components of the legal health record. It is not the complete legal health record.[facility]
--- OUTSIDE RECORDS SUMMARY | 2024-10-11 08:20 | XMS_ITS ---
Author Organization [facility] Address [address] [place] [id number] Care Team Providers Care Stamp Mounter Name Role Phone Po Abby QIU Primary Care Provider Neil Nguyen [phone] REASON FOR VISIT screening,fam hx colon ca,abnormal gi barium series Encounters Encounter Location Date Provider Diagnosis [facility] Outpatient [address], [place] [id number] 10/11/2024 Neil Carter Colon cancer scree teodoro Z12.11 ; Family history of colon cancer Z80.0 ; Diverticulosis of large intestine without perforation or abscess without bleeding K57.30 ; Other hemorrhoids K64.8 ; Gastritis K29.70 ; 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 and Hiatal hernia K44.9 Assessments Encounter Date Diagnosis (ICD Code) Assessment Notes Treatment Notes Treatment Clinical Notes Section Notes 10/11/2024 Colon cancer screening (ICD-10 - Z12.11) 10/11/2024 Family history of colon cancer (ICD-10 - Z80.0) 10/11/2024 Diverticulosis of large intestine without perforation or abscess without bleeding (ICD-10 - K57.30) 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) 10/11/2024 Hiatal hernia (ICD-10 - K44.9) Plan Of Treatment No Information Progress Notes * LUKE MORALES JrDOB:[birth year] (70 yo M)Acc No.[id number]:10/11/2024 EGD and COL/MAC Patient: LUKE JOSE Jr Provider: Jerrica Carter MD :1955 A ge:69 Y S ex:Male Date:10/11/2024 Address:[place] [address] Pcp:Abby Kothari MD Subjective: * Chief Complaints: * 1 . Screening,fam hx colon ca,abnormal gi barium series. * Medical History: Objective: * Vitals: Assessment: * Assessment: 1. C olon cancer screening - Z12.11 (Primary) 2 . F amily history of colon cancer - Z80.0 3 . D iverticulosis of large intestine without perforation or abscess without bleeding - K57.30 4 . O ther hemorrhoids - K64.8 5 . G astritis - K29.70 6 . A denomatous duodenal polyp - D13.2 ?7. H iatal hernia - K44.9 Plan: * Treatment: * Procedure Codes: 4 5378 DIAGNOSTIC COLONOSCOPY, 0529F INTRVL 3+YRS PTS CLNSCP DOCD, 0528F RCMND FLW-UP 10 YRS DOCD, Modifiers: 1P , 01765 UPPER GI ENDOSCOPY, BIOPSY * * The named appointment provid er may or may not be the originator of this progress note, and it is not deemed complete until electronically signed by the appointment provider. Sign off status: Pending * Provider: Jerrica Carter MD Date: 0 10/11/2024 Generated for Sundeep amor/Charlette/eTransmitting on: 05/04/2024 06:03 AM EST
--- OUTSIDE RECORDS SUMMARY | 2025-03-04 06:03 | XMS_ITS | Clinical Summary ---
Author Organization [facility] Address [address] [place] [address] Phone Care Team Providers Care Analysis Mgr Name Role Phone Taye Abby Swan MD Primary Care Provider [phone] Allergies No known active allergies Medications amoxicillin [...] Devices Not on file Insurance HMO HMO [facility] HMO [facility] HMO [facility] HMO [facility] HMO Care Teams Analysis Mgr Relationship Specialty Start Date End Date Abby Kothari MD [address] [place] [phone] PCP - General Internal Medicine 02/03/23 Additional Source Comments The information contained in this document represents components of the legal health record. It is not the complete legal health record.[facility]
--- OUTSIDE RECORDS SUMMARY | 2025-03-04 06:03 | XMS_ITS | Patient Health Record ---
Author Organization [facility] Address [address] [place] [phone] Care Team Providers Care Residential Installer Name Role Phone Po Abby QIU Primary Care Provider Neil Nguyen [phone] Allergies Allergen (clinical drug ingredient) Drug/Non Drug Allergy documented on EMR Reaction Allergy Type Onset Date Status acetaminophen / oxycodone Percocet Unknown Drug Allergy Active Results Component Value Reference Range Notes Pathology (Not yet reviewed by provider) Interpretation: Performing Lab:[facility], [address] [place] [phone] Notes/Report: Reason For Referral No Information Medications Medication SIG (Take, Route, Frequency, Duration) Notes Start Date End Date Status traMADol HCl 50 MG Oral; Duration: 7 Days Active Terazosin HCl 5 MG Oral; Duration: 90 Days Active Omeprazole 20 MG Oral; Duration: 30 Days Active hydroCHLOROthiazide 12.5 MG TK 1 C PO QD IN THE MORNING Oral; Duration: 30 Active Lisinopril 10 MG 1 tablet Orally Once a day 07/24/2024 Active Finasteride 5 MG TK 1 T PO QD Oral; Duration: 90 Active Immunizations Vaccine Route Administration Date [...] Problem Status W/U Status Risk Notes Problem Screening for malignant neoplasm of colon ([id number]) Encounter for screening for malignant neoplasm of colon (Z12.11) Active confirmed Problem Preprocedural examination ([id number]) Preprocedural examination (Z01.818) Active confirmed Problem Family History of Cancer of Colon (Situation) (302059874) Family history of colon cancer (Z80.0) Active confirmed Vital Signs Temperature 97.3 degrees Fahrenheit 07/24/2024 Blood pressure diastolic 01 mm Hg 07/24/2024 Height 74 in 07/24/2024 Blood pressure systolic 001 mm Hg 07/24/2024 Weight 166 lbs 07/24/2024 BMI 21.31 kg/m2 07/24/2024 Procedures Procedure Date Ordered Date Performed Result Body Sit e UPPER GI ENDOSCOPY 07/24/2024 N/A COLONOSCOPY 07/24/2024 N/A Encounters Encounter Location Date Provider Diagnosis 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 [address] [place] [address] 07/24/2024 Neil Carter Abnormal upper gastrointestinal barium series R93.3 ; Colon cancer screening Z12.11 and Family history of colon cancer Z80.0 Assessments Encounter Date Diagnosis (ICD Code) Assessment Notes Treatment Notes Treatment Clinical Notes Section Notes 10/11/2024 Colon cancer screening (ICD-10 - Z12.11) 10/11/2024 Family history of colon cancer (ICD-10 - Z80.0) 07/24/2024 Colon cancer screening (ICD-10 - Z12.11) [...] to keep you advised of his progress. 10/11/2024 Diverticulosis of large intestine without perforation or abscess without bleeding (ICD-10 - K57.30) 07/24/2024 Family history of colon cancer (ICD-10 [...] to keep you advised of his progress. 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) 10/11/2024 Hiatal hernia (ICD-10 - K44.9) Plan Of Treatment Pending Test Test Name Order Date UPPER GI ENDOSCOPY 07/24/2024 COLONOSCOPY 07/24/2024 Pathology 10/11/2024 Future Test Test Name Order Date COLONOSCOPY 08/27/2014 COLONOSCOPY 12/19/2019 Insurance Providers Payer Name Payer Address Payer Phone Subscriber Number Group Number Insured Name Patient Relationship to Insured Coverage Start Date Coverage End Date [facility] [address] [facility] [phone] [id number] CECILIALUKE NAVARRO Self - patient is the insured Medical (General) History Medical History History ICD Code Screening colonoscopy 007--neg. except for sigmoid diverticulosis and internal hemorrhoids Denies ME,DM,CVA,Lung disease,renal dise ase Hypertension Colonoscopy 11/2014 with a hyperplastic p olyp BPH Fractured back, pelvis, ribs, and concus ursula from a fall at home 09/2023 Colonoscopy in December 0 revealed a small hyperplastic polyp that was removed Surgical History Surgery Date(Month/Year) Bilateral inguinal hernia repair--Dr. Linnea toscano 06/25/2019 Eye surgery Right inguinal and umbilical hernia surg jass 5 Knee surgeries
[2025-03-04 08:07] LABS: Prostate Specific Antigen 0.84 ng/mL (<0.05-4.0)
== END 2025-03-04 06:02 | disposition home or self-care (01) ==
LOC: HO.LAB 06:01
PROVIDERS: PCP Internal Medicine; Visit Provider Nurse Practitioner Family
DX: N40.0 Benign prostatic hyperplasia without lower urinary tract symptoms (principal); Z12.5 Encounter for screening for malignant neoplasm of prostate
CPT/HCPCS: 36415; 84153

== ENCOUNTER 2025-03-10 11:21 | Outpatient (AMB) | payer OTHER, SELFPAY ==
--- NOTE | 2025-03-10 11:27 | A.OFFVIS_ITS ---
Intake Visit Reasons: 6M follow up/ PSA/ PVR Intake Note: Patient is Present for Follow Up PVR/PSA Urology Medication: Terazosin, Finasteride Antibiotic Allergies: None Blood Thinners: None Patient reports he does not fully empty his bladder, reports that last night he got up 6 times to urinate PVR: 44ml Net Sql Developer Required: No Accompanied by: Self / Same As Patient Allergies oxycodone (From PERCOCET) Allergy (Unknown, Verified 03/10/25 11:58) ITCHY THROAT, FEELS BAD Medication List - Last Reconciled 03/10/25 by AMELIA DuenasP- finasteride 5 mg PO DAILY gabapentin 100 mg PO BEDTIME hydrochlorothiazide 12.5 mg PO QAM levetiracetam 1,250 mg PO BID lisinopril 10 mg PO DAILY multivitamin 1 tab PO DAILY omeprazole 20 mg PO DAILY terazosin 5 mg PO BEDTIME 90 days tizanidine 6 mg (1.5 x 4 mg) PO BEDTIME PRN HPI Comments Details: Ko Lilly is a very pleasant 70-year-old male patient of Dr. Kothari. He has a past medical history of chronic kidney disease, head trauma, facial basal cell cancer, plantar fasciitis, hypertension, vitamin-D deficiency, BPH, and hypercholesteremia. He presents to the office today for follow-up of his lower urinary tract symptoms. In discussion with the patient today he reports noting over the last 1-2 months he has been having increased episodes of urinary hesitancy as well as nocturia up to 5 times per night. He reports upon initial start of terazosin he felt lower urinary tract symptoms improved however over the last 1-2 months feels symptoms have reoccurred. He reports compliance with terazosin as well as finasteride as prescribed. He had previously been on Flomax however did not find this helpful and therefore this has since been discontinued. In office urinalysis results reviewed with the patient today. PVR 44 mL. He does report noting over the last year he has been diagnosed with sleep apnea as well as seizures. He reports he sustained a fall and was out of work for 5 months however he is now back to work. Previous workup has included a retroperitoneal ultrasound 05/18 noting Pre void bladder volume is approximately 380 mL. Postvoid bladder volume was approximately 210 mL. No bladder wall thickening or bladder calculi noted. Prostate gland is mildly enlarged measuring 48 mL. He otherwise denies frequency, incontinence, hematuria, dysuria, foul smelling urine, flank pain, fever, and or chills. We did discussed at length potential causes of urinary hesitancy, feeling of incomplete bladder emptying, and nocturia. We did discussed further treatment options of these urological conditions in risks and benefits of these treatment options. PSAs are as follows: PSA: 06/15 1.5, 06/16 1.4, 06/17 1.4, 01/15 1.4, 03/18 0.8 All questions were answered. He otherwise offers no other issues or concerns at this time. [facility] Medical History CKD (chronic kidney disease) Head trauma History of fall Impaired glucose tolerance Hearing loss in left ear Facial basal cell cancer Plantar fasciitis Hypertension Vitamin D deficiency BPH (benign prostatic hyperplasia) Hypercholesterolemia Surgical History H/O colonoscopy History of left inguinal hernia repair (09/22/22) History of inguinal hernia repair, bilateral History of strabismus surgery History of arthroscopic knee surgery H/O umbilical hernia repair Social History Housing: House Alcohol intake: current Alcohol intake frequency: holidays/special occasions only Comment: 3x a week 1-2 glasses of wine, Patient Tobacco Use Status: Former Tobacco user Tobacco use type: Cigarette Years Smoked: [id number] 4-5 years e-Cigarette/Vaping Use: Never Used Second Hand Smoke Exposure: Yes service: No Current occupational status: retired Cognitive needs: No Hearing needs: No Vision needs: Yes Review of Systems Const All systems reviewed & are unremarkable except as noted in HPI and below Physical Exam Const General: cooperative, healthy appearing, comfortable, no acute distress, well developed, alert and awake Orientation/consciousness: patient oriented x3 Limitations: no limitations HEENT Head: Yes normal to inspection, Yes normocephalic and Yes atraumatic Ears: hearing grossly normal bilaterally Eyes General: appearance normal, both eyes and all related structures Neck Neck: Yes normal visual inspection and Yes trachea midline Chest Chest palpation & inspection: normal inspection of the chest Resp Effort & Inspection: normal respiratory effort and able to speak in complete sentences Cardio Rate: regular rate GI Inspection: Yes normal to inspection General: Yes no CVA tenderness Back/Spine/Pelvis Back: no CVA tenderness Skin General skin exam: no rashes or lesions noted Neuro General: patient oriented x3 Extrem General: Yes normal to inspection Psych Appearance: grossly normal and well kempt Mental Status: mental status grossly normal Speech and movement: Normal speech and movement present and Clear speech present Affect: normal affect Attitude: cooperative Thought process: Normal thought process present Thought content: Normal thought content present Insight: Fair insight present (Psych) Judgement: Fair judgement present (Psych) Office Procedures Post Void Residual Post Residual Void Post Void Residual (PVR): 44 [id number] Void Residual by ultrasound Results AMB Urinalysis, Automated UA Leukoctes 0 Cristobal/uL Last Edit by Claire Salazar [facility] on 03/10/25 11:39 UA Nitrite Negative Last Edit by Claire Salazar [facility] on 03/10/25 11:39 UA Urobilinogen 0.2 mg/dL Last Edit by Claire Salazar [facility] on 03/10/25 11:3 9 UA Protein 0 mg/dL Last Edit by Claire Salazar [facility] on 03/10/25 11:39 UA pH 5.5 Last Edit by Claire Salazar [facility] on 03/10/25 11:39 UA Blood 0 Leonard/uL Last Edit by Claire Salazar [facility] on 03/10/25 11:39 UA Specific [place] 1.015 Last Edit by Claire Salazar [facility] on 03/10/25 11: 39 UA Ketone Negative Last Edit by Claire Salazar [facility] on 03/10/25 11:39 UA Bilirubin 0 mg/dL Last Edit by Claire Salazar [facility] on 03/10/25 11:39 UA Glucose 0 mg/dL Last Edit by Claire Salazar [facility] on 03/10/25 11:39 Results Reviewed Results Reviewed: Laboratory Last Values Urine pH (Auto) 5.5 03/10/25 11:38 Specific [place] (Auto) 1.015 03/10/25 11:38 Urine Protein (Auto) 0 mg/dL 03/10/25 11:38 Glucose (UA)(Auto) 0 mg/dL 03/10/25 11:38 Urine Ketones (Auto) Negative 03/10/25 11:38 Urine Blood (Auto) 0 Leonard/uL 03/10/25 11:38 Urine Nitrite (Auto) Negative 03/10/25 11:38 Urine Bilirubin (Auto) 0 mg/dL 03/10/25 11:38 Urine Urobilinogen (Auto) 0.2 mg/dL 03/10/25 11:38 Leukocyte Esterase (Auto) 0 Cristobal/uL 03/10/25 11:38 Assessment & Plan Assessment & Plan (1) Enlarged prostate: Code(s): N40.0 - Benign prostatic hyperplasia without lower urinary tract symptoms Category: Medical (2) BPH (benign prostatic hyperplasia): Comment: 2017 cc Code(s): N40.0 - Benign prostatic hyperplasia without lower urinary tract symptoms Category: Medical Qualifiers: Lower urinary tract symptom detail: urinary frequency Lower urinary tract symptom presence: symptoms present Qualified Code(s): N40.1 - Benign prostatic hyperplasia with lower urinary tract symptoms; R35.0 - Frequency of micturition (3) Feeling of incomplete bladder emptying: Code(s): R39.14 - Feeling of incomplete bladder emptying Category: Medical (4) Lower urinary tract symptoms: Code(s): R39.9 - Unspecified symptoms and signs involving the genitourinary system Category: Medical (5) Nocturia: Code(s): R35.1 - Nocturia Category: Medical Plan In office urinalysis results reviewed with the patient today; as noted above. PVR 44 mL. Most recent PSA results reviewed with the patient today; as noted above. We did discussed potential causes of nocturia, feeling of incomplete bladder, and urinary hesitancy; we discussed further treatment options and risks and reta efits of these treatment options. We did discussed the importance of compliance with CPAP in relation to nocturia as well as overall health and well-being. We also discussed importance of limiting fluids 2-3 hours prior to bed to decrease episodes of nocturia. All questions were answered. Continue finasteride and terazosin as prescribed. Follow-up next available in office cystoscopy for further assessment evaluation Follow-up per doctor's orders; or sooner with any issues, concerns, and or questions. Orders: Orders AMB Post Void Residual by ultrasound Today N40.1 - Benign prostatic hyperplasia with lower urinary tract symptoms, R35.0 - Frequency of micturition AMB Urinalysis Automated Today Z13.9 - Encounter for screening, unspecified Patient Instructions: The patient had an opportunity to ask questions regarding the treatment plan. All questions were answered. Physical exam, labs, and imaging were discussed and reviewed in detail. As well as risks, benefits, and discussion of treatment choices. No major barriers to understanding were identified. The patient expressed understanding and agreement with the above treatment plan. The patient was made aware they should contact our office by phone for worsening of their current condition, the appearance of new symptoms, or with any questions or concerns. Compliance is encouraged with any medications and follow up testing that is ordered. It is a privilege to be allowed the opportunity to participate in? your urological care.? Again, if you have any questions or concerns If you have any questions or concerns please do not hesitate to contact me. The office is [phone]. This note is constructed using voice recognition software. While every effort has been made to ensure accuracy implant coordinator errors may have been included. Yours sincerely, KYLEE Duenas Coding Level of Care Code Est Pt Level 3 (10261) Complex EM visit Add On G2211 Diagnoses Enlarged prostate N40.0 Benign prostatic hyperplasia with urinary frequency N40.1; R35.0 Lower urinary tract symptom detail: urinary frequency Lower urinary tract symptom presence: symptoms present Feeling of incomplete bladder emptying R39.14 Lower urinary tract symptoms R39.9 Nocturia R35.1 CPT Codes Post Residual Void - PVR CPT Code: 62632-Pppp Void Residual by ultrasound ([id number])
== END 2025-03-10 12:02 | disposition home or self-care (01) ==
LOC: HO.HUSH 11:21
PROVIDERS: PCP Internal Medicine; Visit Provider Nurse Practitioner Family
DX: N40.0 Benign prostatic hyperplasia without lower urinary tract symptoms (principal); N40.1 Benign prostatic hyperplasia with lower urinary tract symptoms; R35.0 Frequency of micturition; R39.14 Feeling of incomplete bladder emptying; R39.9 Unspecified symptoms and signs involving the genitourinary system; R35.1 Nocturia; Z13.9 Encounter for screening, unspecified
CPT/HCPCS: 99213; G2211

== ENCOUNTER → 2025-03-10 11:21 | Outpatient (BNVA) | payer OTHER, SELFPAY | PROVIDERS: PCP Internal Medicine; Visit Provider Nurse Practitioner Family | DX: R35.0 Frequency of micturition (principal); N40.1 Benign prostatic hyperplasia with lower urinary tract symptoms | CPT/HCPCS: 51798; 81003 ==